=== PATIENT | male | born 1970 | race Caucasian/White ===

== ENCOUNTER 2019-04-08 20:40 | Inpatient (IN) | payer MEDICAID, SELFPAY ==
--- NOTE | ~2019-04-08 | US_ITS ---
EXAMINATION:US venous doppler LE BI INDICATION:Leg edema TECHNIQUE: Multiple grayscale, color flow and Doppler images of the lower extremity deep venous syste ms were obtained and reviewed. COMPARISON:No prior studies for comparison. FINDINGS: The common femoral, superficial femoral and popliteal veins demonstrate normal respiratory variation, augmentation and compressibility. Color flow is also seen within the posterior tibial, pe roneal, greater saphenous and profunda veins. IMPRESSION: 1: No lower extremity deep venous thrombosis. Reviewed, dictated and finalized at location A. PLAYER
--- NOTE | ~2019-04-08 | CT_ITS ---
EXAMINATION: CTA chest PE protocol DATE: 04/08/2019 22:38 COLOR FINISHER INDICATION: Shortness of breath TECHNIQUE: Computed tomographic angiography (CTA) of the chest was performed with 100 mL Omnipaque-35 0 intravenous contrast. The dose-length product was 705.93 mGy-cm. Maximum intensity projection 3D-re constructions of the aorta and other arteries were constructed by the technologist on a separate work station. COMPARISON: None. FINDINGS: The study is technically adequate without evidence for pulmonary embolism. There is mediast inal lymphadenopathy. For instance AP window lymph node measures 1.9 cm short axis. There is also elmer ateral hilar lymphadenopathy. Subcarinal lymph node measures 2.9 cm. Cardiomegaly. No significant per icardial effusion. There is small left pleural effusion. Small hiatal hernia. There are multiple bord araceli sized axillary lymph nodes. There are partially visualized enlarged upper abdominal lymph node s in the portacaval region. There is also enlarged left supraclavicular lymph nodes. There are scatte red groundglass densities many of which have a nodular configuration. There are areas of tree-in-bud configuration and the left upper lobe. IMPRESSION: 1. No evidence for pulmonary embolism. 2: Extensive scattered groundglass opacities with areas of nodularity and tree-in-bud configuration, particularly in the left upper lobe. Differential diagnosis includes infection as well as lymphoma an d sarcoidosis in view of mediastinal and hilar lymphadenopathy. 3: Cardiomegaly. 4: Small left pleural effusion. Reviewed, dictated and finalized at location A. R FINISHER IMPRESSION: 1. No evidence for pulmonary embolism. 2: Extensive scattered groundglass opacities with areas of nodularity and tree- in-bud configuration, particularly in the left upper lobe. Differential diagnos is includes infection as well as lymphoma and sarcoidosis in view of mediastina l and hilar lymphadenopathy. 3: Cardiomegaly. 4: Small left pleural effusion.
--- NOTE | ~2019-04-08 | CT_ITS ---
EXAMINATION: CT abdomen pelvis wo con DATE: 04/09/2019 15:43 INDICATION: Mediastinal lymphadenopathy TECHNIQUE: Computed tomography (CT) of the abdomen and pelvis was performed without intravenous contr ast. The dose-length product was 868.72 mGy-cm. Automated exposure control and iterative reconstructi on technique were employed. COMPARISON: CT dated 10/13/2013 FINDINGS: There are scattered groundglass nodular densities in both lungs. Cardiomegaly. Small pleura l effusions. The liver, spleen, pancreas, adrenal glands and kidneys are unremarkable. Gallbladder is present. The re are enlarged retroperitoneal lymph nodes seen in the upper abdomen in the periaortic and portacava l region. Nonobstructive bowel gas pattern. No abnormal pelvic masses or fluid collections. There is mild bilat eral inguinal lymphadenopathy. Enlarged left obturator lymph node. No free air or free fluid. There i s moderate-severe lumbar spondylosis most advanced at L5-S1. IMPRESSION: 1. Abdominal and pelvic lymphadenopathy. Considering thoracic lymphadenopathy, lymphoma should be con sidered. 2: Scattered groundglass nodular densities in both lungs. Differential diagnosis includes infection versus lymphoma and sarcoidosis. Reviewed, dictated and finalized at location A. OR QUALITATIVE RESEARCHER IMPRESSION: 1. Abdominal and pelvic lymphadenopathy. Considering thoracic lymphadenopathy, lymphoma should be considered. 2: Scattered groundglass nodular densities in both lungs. Differential diagnos is includes infection versus lymphoma and sarcoidosis.
--- NOTE | ~2019-04-08 | XR_ITS ---
XR chest 2V 04/08/2019 21:28 Indication: Shortness of breath. Procedure: PA and lateral views of the chest Comparison: 08/10/2009 Findings: Cardiomegaly with interstitial edema. No pleural effusion. No pneumothorax. No acute osseou s abnormality. Impression: 1: Cardiomegaly with interstitial edema, possibly chronic. Reviewed, dictated and finalized at location A. OMY PROFESSOR Impression: 1: Cardiomegaly with interstitial edema, possibly chronic.
--- NOTE | 2019-04-08 20:41 | ECG_ITS ---
Measurements Intervals [place] Rate: 103 P: 58 DC: 158 QRS: 42 QRSD: 100 T: 153 QT: 312 QTc: 409 Interpretive Statements SINUS TACHYCARDIA LEFT ATRIAL ENLARGEMENT CANNOT RULE OUT SEPTAL INFARCT, AGE INDETERMINATE ST-T WAVE ABNORMALITY IN LATERAL LEADS- CONSIDER ISCHEMIA BASELINE ARTIFACT- I, III, AVR, AVL ABNORMAL ECG Electronically Signed On 04-08-2019 21:17:16 DEPUTY SHERIFF CHIEF by Jong Macias D.O.
[2019-04-08 20:45] VITALS: BP 131/92; PULSE 106; RESP 22; TEMP 38.3; O2SAT 98
[2019-04-08 21:00] VITALS: PULSE 100
[2019-04-08 21:08] LABS: Basophils Percent Auto 0.2 % (0.2-1.2); Eosinophils Percent Auto 0.2 % (0-4.4); Immature Granulocyte Absolute 0.09 K/mm3 (0.00-0.031); Immature Granulocyte Percent A 0.7 % (0-0.5); Lymphocytes Absolute Auto 0.92 K/mm3 (0.9-3.2); Lymphocytes Percent Auto 7.3 % (18.3-44.2); Mean Corpuscular HGB Conc 31.9 g/dl (32-36); Mean Corpuscular Hemoglobin 29.5 pg (26-34); Mean Corpuscular Volume 92.5 fl (80-100); Mean Platelet Volume 8.9 fl (7.4-10.4); Monocytes Absolute Auto 0.9 K/mm3 (0.1-0.6); Monocytes Percent Auto 7.2 % (2.6-8.5); Neutrophils Absolute Auto 10.6 K/mm3 (1.3-6.7); Neutrophils Percent Auto 84.4 % (45.5-73.1); Platelet Count Result 317 k/mm3 (150-375); Red Blood Count 5.08 M/mm3 (4.6-6.20); Red Cell Distribution Width 13.6 % (11.5-14.5); White Blood Count 12.6 K/mm3 (4.5-10.0)
[2019-04-08 21:20] LABS: Blood Urea Nitrogen 12 mg/dL (9-20); Calcium 8.4 mg/dL (8.4-10.2); Carbon Dioxide 32 mmol/L (22-30); Chloride 96 mmol/L (98-107); Estimated CRCL calculation 57 ml/min; Estimated Glomerular Filt Rate 41; Glucose 113 mg/dL (75-110); Sodium 135 mmol/L (137-145)
[2019-04-08 21:24] LABS: INR 0.9; Prothrombin Time 11.6 Seconds (11.1-14.7)
[2019-04-08 21:25] LABS: Partial Thromboplastin Time 30.9 SECONDS (22.3-36.8)
[2019-04-08 21:29] LABS: NT Pro B Type Natriuretic Pept 1650 PG/ML (5-100)
--- NOTE | 2019-04-08 21:31 | ED.SOB ---
HPI - SOB/Dyspnea General Chief Complaint: Chest Pain Stated Complaint: SUNITA BEEN HAVING MULTIPLE HEART ATTACKS Time Seen by Provider: 04/08/19 21:27 Source: patient and RN notes reviewed Mode of arrival: ambulatory Limitations: no limitations History of Present Illness HPI Narrative: Pt is a 48 y/o male who presents to the ED with c/o shortness of breath starting roughly 6 weeks ago and worsening over the past few weeks. He notes that his symptoms began while pushing a wheelbarrow around 6 weeks ago. Pt states that he has been unable to take a deep breath. He states that his symptoms are aggravated with exertion, noting that he has difficulty catching his breath after walking relatively short distances. Pt reports intermittent chest pain accompanying his SOB, but denies any CP currently. He notes that he developed flu-like symptoms, including a fever, 2 days ago. Pt denies having any significant cardiopulmonary PMHx. MD elicited complaint: shortness of breath Onset (ago): week(s) (6) Timing: progressively worsening Exacerbating factors: exertion Associated symptoms: chest pain (resolved) and fever Related Data Home Medications Medication Instructions Recorded Confirmed No Home Medications 04/08/19 04/08/19 Allergies Allergy/AdvReac Type Severity Reaction Status Date / Time No Known Allergies Allergy Verified 04/08/19 20:49 Review of Systems Review of Systems: All systems reviewed & are unremarkable except as noted in HPI and below Constitutional: Constitutional: Reports fever(s) Cardiovascular: Cardiovascular: Reports chest pain (resolved) Respiratory: Respiratory: Reports dyspnea PMFSH Past Medical History Medical History Anxiety Braun's esophagus HTN (hypertension) Positional vertigo Surgical History Surgical History No significant past surgical history Social History Social History Smoking status: Never smoker Exam Const: General: cooperative, healthy appearing, comfortable, no acute distress, well developed, alert and awake; No confusion Orientation/consciousness: oriented to person, oriented to place, oriented to time, patient oriented x3 and No confusion Limitations: no limitations HENMT: Head: normal to inspection, normocephalic and atraumatic Chest: Chest palpation & inspection: normal inspection of the chest Resp: Effort & Inspection: no respiratory distress and not tachypneic Auscultation: clear to auscultation bilaterally, no crackles, no rales, no rhonchi, no wheezes and diminished lung sounds bilateral Cardio: Rate: tachycardic Rhythm: regular rhythm GI: Inspection: normal to inspection GI Palp: No abdominal tenderness, Yes Soft to palpation, No Tenderness to palpation present (GI), No Guarding due to palpation present (GI), No Rigid due to palpation and No Rebound tenderness present Auscultation: normal bowel sounds Back/Spine/Pelvis: Back: no CVA tenderness Skin: General skin exam: normal color, no rashes or lesions noted, elasticity normal and turgor normal Neuro: General: oriented to person, oriented to place, oriented to time, patient oriented x3, tone normal, moves all extremities, Normal light touch and pain sensation, no meningeal signs, no focal motor deficits, CN's II-XI intact bilaterally and No confusion Cranial nerves: Yes Equal, round and reactive pupils present Speech: No Abnormal speech present Sensory Exam: No Sensory deficit (Neuro) Extrem: General: normal to inspection, full ROM and capillary refill normal Psych: Appearance: grossly normal and well kempt Mental Status: mental status grossly normal Speech and movement: Normal speech and movement present Affect: normal affect Attitude: cooperative Thought process: Normal thought process present Thought content: Yes Normal thought content present Insight: Whit
[2019-04-08] MEDS: ASPIRIN 81 MG CHEWABLE TABLET 324 MG PO ×2 (21:38→22:39)
[2019-04-08 21:44] LABS: D Dimer 1.38 ug/mL (<0.48)
[2019-04-08 21:55] VITALS: PULSE 97; RESP 19
[2019-04-08] MEDS: ALBUTEROL SULFATE NEB 2.5 MG/0.5 ML INH 5 MG INHALATION (21:57)
[2019-04-08] MEDS: IPRATROPIUM BR 0.02% INH SOLN 0.5 MG/2.5 ML VIAL INHALATION (21:57)
[2019-04-08 22:05] VITALS: PULSE 94; RESP 15
[2019-04-08 22:21] LABS: Lactic Acid Reflex 0.7 mmol/L (0.7-2.1)
--- NOTE | 2019-04-08 22:29 | PC.NURSE ---
pt to ct unable to give meds
[2019-04-08] MEDS: ACETAMINOPHEN 500 MG TABLET 1000 MG PO (22:39)
[2019-04-08] MEDS: ENOXAPARIN 100 MG/ML SYRINGE SUB-Q (22:39)
[2019-04-08] MEDS: SODIUM CHLORIDE 0.9% IV 1,000 ML 999 ML IV CONT (22:39)
[2019-04-08 23:00] VITALS: BP 192/120; PULSE 98; RESP 22; TEMP 36.9; O2SAT 97
[2019-04-09] VITALS (21 sets, daily range): BP systolic 144–179; BP diastolic 100–122; PULSE 66–96; RESP 14–22; TEMP 36.2–36.8; O2SAT 97–100
[2019-04-09] MEDS: FUROSEMIDE INJ 40 MG/4 ML VIAL IV PUSH (00:16)
[2019-04-09 00:20] LABS: Lactic Acid Reflex 0.8 mmol/L (0.7-2.1)
[2019-04-09 00:41] LABS: Troponin I 0.121 ng/mL (0.000-0.034)
--- NOTE | 2019-04-09 01:12 | ECG_ITS ---
Measurements Intervals [place] Rate: 68 P: 57 NJ: 164 QRS: 50 QRSD: 115 T: 165 QT: 417 QTc: 445 Interpretive Statements SINUS RHYTHM INTRAVENTRICULAR CONDUCTION DELAY LEFT VENTRICULAR HYPERTROPHY AND ST-T CHANGE ANTERIOR ST ELEVATION- CONSIDER ACUTE INJURY ABNORMAL ECG Electronically Signed On 04-09-2019 8:52:20 AUTO DAMAGE ESTIMATOR by Jong Macias D.O.
--- NOTE | 2019-04-09 01:12 | PM.IMHP ---
H&P: HPI History of Present Illness Chief complaint: Increase exertional shortness of breath Narrative: This is a 48-year-old male with known history of untreated hypertension who presented to the [facility] with a complaint of worsening exertional shortness of breath as well as nonproductive hacking cough. The patient mentions that approximately 6 weeks ago he experienced an episode of severe midsternal like chest pain. His chest pain at that time was burning in quality and severe. He believes he may have had a heart attack at that time. The patient did not seek medical attention at that time. He mentions that since then he has had on going exertional shortness of breath. The patient is known to work out at the gym regularly and tells me that he had to stop going to the gym because of increased fatigue. Recently the patient went back to working out and has noticed that he has much less stamina and less endurance that he used to have. The patient has no previous history of coronary artery disease. He tells me that typically he will begin to have worsening shortness of breath as the day goes on but today he woke up with significant shortness of breath immediately which worried him. The patient has also noticed increased swelling of his lower extremities recently which is not typical for him. He mentions that over the past 6 weeks he has had intermittent mild chest discomfort that comes and goes but not anywhere severe as it was 6 weeks ago. The patient also complains of upper respiratory infection symptoms including congestion and a dry hacking cough. The patient was evaluated emergency room this evening and found to have an elevated troponin of 0.121. Positive for influenza A. On further questioning the patient denies any family history of early cardiac . He does admit to me that he has use anabolic steroids in the past and his last time he used was last year. The patient denies any other type of drug use. Review of Systems Review of Systems: All systems reviewed & are unremarkable except as noted in HPI and below PMFSH Past Medical History Medical History Anxiety Braun's esophagus HTN (hypertension) Positional vertigo Surgical History Surgical History No significant past surgical history Social History Social History Smoking packs per day: 1 Smoking cigarettes per day: 20.0 Years smoked: 15 Smoking pack-years: 15.00 Smoking status: Former smoker Tobacco type: cigarettes Second hand tobacco smoke exposure: Yes Alcohol intake: never Substance use: never Gender identity (if verbalized by the patient): Male Spiritual care concerns: No Agree to blood products: Yes Meds Home Medications and Allergies Home Medications Medication Instructions Recorded Confirmed Type No Home Medications 04/08/19 04/08/19 History Allergies Allergy/AdvReac Type Severity Reaction Status Date / Time No Known Allergies Allergy Verified 04/08/19 20:49 Vital Signs Vital Signs - 24 hr 04/08/19 20:45 04/08/19 21:00 04/08/19 21:55 Temperature 38.3 C H Pulse Rate 106 H 100 97 Respiratory Rate 22 H 19 Blood Pressure 131/92 H Pulse Oximetry 98 04/08/19 22:05 04/08/19 23:00 04/09/19 00:50 Temperature 36.9 C Pulse Rate 94 98 96 Respiratory Rate 15 22 H 14 Blood Pressure 192/120 H 176/122 H Pulse Oximetry 97 97 Exam Const: General: cooperative, alert, awake and ill appearing Nutritional Appearance: obese Orientation/consciousness: patient oriented x3 HENMT: Head: normal to inspection General nose exam: Normal external nose present Face and sinus: normal facial exam Mouth: Yes Normal oral and palatal mucosa present and Yes oropharynx normal Eyes: Pupils: Equal, round and reactive pupils present EOM: EO
--- NOTE | 2019-04-09 01:22 | ECHO_ITS ---
Patient Info Name: Patric Rodriges Age: 48 years : 1970 Gender: Male Ht: 72 in Wt: 230 lbs BSA: 2.33 m2 HR: 75 bpm BP: 171 / 108 mmHg Heart Rhythm: Sinus Rhythm Technical Quality: Excellent Exam Date: 04/09/2019 10:31 AM Exam Location: [facility] Card Pulmonary Patient Status: Inpatient Admit Date: 04/09/2019 Staff Ordering Physician: Sergio Carlos MD Timber Inspector: Krishna Ren RDCS Attending Provider: Sergio Carlos MD Referring Physician: Terrance ROSAS; Exam Type: CA echo doppler color flow Study Info Indications I50.9 - Heart failure, unspecified Complete two-dimensional, color flow and Doppler transthoracic echocardiogram is performed. Strain analysis performed. History/Risk Factors CHF; NSTEMI, HTN, SOB, edema, Flu A, elevated trops. Summary 1. Left ventricular systolic function is severely reduced, estimated at 25-30%. 2. There is mildly increased left ventricular wall thickness. 3. There is mild mitral valve regurgitation. 4. There is mild tricuspid valve regurgitation. 5. Severe pulmonary hypertension, estimated pulmonary arterial systolic pressure is 66 mmHg. Left Ventricle Left ventricular chamber dimension is mildly enlarged. Left ventricular systolic function is severely reduced, estimated at 25-30%. There is mildly increased left ventricular wall thickness. Left ventricular septal wall motion is abnormal with septal motion related to bundle branch block. The left ventricular diastolic function is grade IV diastolic dysfunction. Right Ventricle Right ventricular chamber dimension is normal. Right ventricular systolic function is normal. Left Atria Left atrial chamber dimension is mildly enlarged. Right Atria Right atrial chamber dimension is normal. Aortic Valve The aortic valve is trileaflet. There is no aortic valve sclerosis. There is no aortic valve stenosis. There is no aortic valve regurgitation. Pulmonic Valve The pulmonic valve is normal. There is no pulmonic valve stenosis. There is no pulmonic regurgitation. Mitral Valve The mitral valve has normal leaflets. There is no mitral valve stenosis. There is mild mitral valve regurgitation. Tricuspid Valve The tricuspid valve leaflets are normal. There is no significant tricuspid valve stenosis. There is mild tricuspid valve regurgitation. Severe pulmonary hypertension, estimated pulmonary arterial systolic pressure is 66 mmHg. Pericardium/Pleural The pericardium appears normal. There is no pericardial effusion. Aorta The aortic root size at the sinus of Valsalva is normal. The prox ascending aorta size is normal. Left Ventricular Outflow Tract Name Value Normal LVOT 2D LVOT Diameter 2.2 cm LVOT Doppler LVOT Peak Gradient 9 mmHg LVOT Mean Gradient 3 mmHg LVOT VTI 22 cm LVOT VTI/AV VTI Ratio 0.8 LVOT Stroke Volume 81 ml LVOT CO 5.9 l/min LVOT CI 2.5
--- NOTE | 2019-04-09 01:44 | ADMGEN ---
This patient, Patric Rodriges, was admitted to IMU Room 206-02. Patient/family oriented to hospital policies and general routines including ID bracelet, bed and alarms, visiting hours, pain management, procedures, bathroom and other care routines, personal items, smoking policy, room service/diet, and visiting hours. Valuables list has been completed. Information on how to activate the Rapid Response Team has been discussed. Patient/Family are encouraged to report perceived risks to care and to ask questions if they do not understand what they are told or what they should do.
[2019-04-09] MEDS: ALBUTEROL SULFATE NEB 2.5 MG/0.5 ML INH INHALATION ×3 (02:44→22:05)
[2019-04-09 03:05] LABS: Basophils Percent Auto 0.2 % (0.2-1.2); Eosinophils Percent Auto 0.1 % (0-4.4); Hematocrit 47.6 % (42.0-52.0); Hemoglobin 15.2 g/dL (14.0-18.0); Immature Granulocyte Absolute 0.07 K/mm3 (0.00-0.031); Immature Granulocyte Percent A 0.5 % (0-0.5); Lymphocytes Absolute Auto 1.44 K/mm3 (0.9-3.2); Lymphocytes Percent Auto 10.8 % (18.3-44.2); Mean Corpuscular HGB Conc 31.9 g/dl (32-36); Mean Corpuscular Hemoglobin 29.5 pg (26-34); Mean Corpuscular Volume 92.2 fl (80-100); Mean Platelet Volume 8.9 fl (7.4-10.4); Monocytes Absolute Auto 0.9 K/mm3 (0.1-0.6); Monocytes Percent Auto 6.5 % (2.6-8.5); Neutrophils Absolute Auto 10.9 K/mm3 (1.3-6.7); Neutrophils Percent Auto 81.9 % (45.5-73.1); Platelet Count Result 336 k/mm3 (150-375); Red Blood Count 5.16 M/mm3 (4.6-6.20); Red Cell Distribution Width 13.7 % (11.5-14.5); White Blood Count 13.3 K/mm3 (4.5-10.0)
[2019-04-09 03:15] LABS: Blood Urea Nitrogen 13 mg/dL (9-20); Calcium 8.2 mg/dL (8.4-10.2); Carbon Dioxide 35 mmol/L (22-30); Chloride 95 mmol/L (98-107); Estimated CRCL calculation 51 ml/min; Estimated Glomerular Filt Rate 41; Glucose 105 mg/dL (75-110); Potassium 3.9 mmol/L (3.4-5.0); Sodium 136 mmol/L (137-145)
[2019-04-09 03:35] LABS: Troponin I 0.122 ng/mL (0.000-0.034)
[2019-04-09] MEDS: ENOXAPARIN 60 MG/0.6 ML SYRINGE 50 MG SUB-Q (09:30)
[2019-04-09] MEDS: ASPIRIN 81 MG ENTERIC TABLET PO (09:31)
--- NOTE | 2019-04-09 10:18 | PM.CNCAR ---
Assessment and Plan Assessment and plan (1) Non-ST elevation (NSTEMI) myocardial infarction: Code(s): I21.4 - Non-ST elevation (NSTEMI) myocardial infarction Status: Acute Assessment and Plan: Patient is a 48-year-old white man with history of poorly-controlled hypertension, former tobacco use (quit 12 years ago, 15 pack year), benign positional vertigo, Braun's esophagus, anxiety, who is seen in cardiac consultation for elevated troponin I and chest pain. - patient presents with possible non ST elevation myocardial infarction in the setting of influenza A likely over the last 6 weeks and with acute renal failure in the setting of poorly controlled hypertension. - His troponin I trend has been completely flat this admission and may be elevated in the setting of his acute renal failure and respiratory infection with influenza A. Troponin I was initially elevated 0.110, then 0.121, then 0.121, then 0.115 over span of 12 hours. Will repeat additional troponin I and if troponin I again without significant change, suspect that this is not an acute non ST-elevation myocardial infarction. - obtain echo to evaluate cardiac structure and function. - Consider left heart catheterization versus nuclear stress testing to evaluate for ischemia pending his continue troponin trend. -Had CTA of the chest which demonstrated no evidence of pulmonary embolism, extensive scattered ground-glass opacities with areas of nodularity and tree-in-bud configuration, particularly in the left upper lobe, differential diagnosis includes infection as well as lymphoma and sarcoidosis in view of mediastinal and hilar lymphadenopathy, cardiomegaly, small left pleural effusion. - Continue aspirin and Lovenox. - Improve blood pressure control. (2) Influenza A: Code(s): J10.1 - Influenza due to other identified influenza virus with other respiratory manifestations Status: Acute Assessment and Plan: Management as per primary service. (3) Uncontrolled hypertension: Code(s): I10 - Essential (primary) hypertension Status: Chronic Assessment and Plan: Patient presented with moderate to severely elevated blood pressure which remains moderately elevated. Continue with hydralazine IV p.r.n. and begin carvedilol 3.125 mg b.i.d.. (4) Acute renal failure: Code(s): N17.9 - Acute kidney failure, unspecified Status: Acute Assessment and Plan: -Continue to monitor renal function with creatinine elevated 1.8 this admission, in the setting influenza A and poorly controlled hypertension. -management as per primary service. (5) Acute CHF (congestive heart failure): Qualifiers: Heart failure type: unspecified Qualified Code(s): I50.9 - Heart failure, unspecified Code(s): I50.9 - Heart failure, unspecified Status: Acute Assessment and Plan: -Patient appears euvolemic at present without significant peripheral edema. -he received a dose of Lasix IV in the emergency department. Holding further Lasix at present given his acute renal failure. -TSH normal this admission. -Begin carvedilol 3.125 mg b.i.d. for heart failure and with need to improve blood pressure control. -Obtain echo to evaluate cardiac structure and function. History of Present Illness History of Present Illness Consult date/time: 04/09/19 10:18 Patient is a 48-year-old white man with history of poorly-controlled hypertension, former tobacco use (quit 12 years ago, 15 pack year), benign positional vertigo, Braun's esophagus, anxiety, who is seen in cardiac consultation for elevated troponin I and chest pain. Patient presented for evaluation of intermittent chest pain and associated shortness of breath over the last 6 weeks. Patient reports 6 weeks ago he had an episode of severe midsternal chest pain with associated severe shortness of breath which lasted approximately 5 minutes while he was carrying his bags into the gym.
[2019-04-09 10:28] LABS: Troponin I 0.115 ng/mL (0.000-0.034)
[2019-04-09] MEDS: carvediloL 3.125 MG TABLET PO ×2 (12:02→20:31)
[2019-04-09] MEDS: hydrALAZINE HCL 20 MG/ML VIAL 10 MG IV PUSH ×2 (12:03→20:31)
[2019-04-09 13:15] LABS: Amphetamine Screen Urine Negative (Negative); Barbiturate Screen Urine Negative (Negative); Benzodiazepines Screen Urine Negative (Negative); Cannabinoid Screen Urine Negative (Negative); Cocaine Screen Urine Negative (Negative); Methadone Screen Urine Negative (Negative); Opiate Screen Urine Negative (Negative); Phencyclidine Screen Urine Negative (Negative)
[2019-04-09 13:26] LABS: Troponin I 0.109 ng/mL (0.000-0.034)
--- NOTE | 2019-04-09 14:42 | PM.IMPN ---
Progress Note: A&P Assessment and Plan (1) Non-ST elevation (NSTEMI) myocardial infarction: Code(s): I21.4 - Non-ST elevation (NSTEMI) myocardial infarction Status: Acute Assessment and Plan: Patient possibly had acute NSTEMI several weeks ago and may now be having symptoms from the low EF and severe HTN. Troponins elevated to 0.12 but flat. EKG more consistent with LVH and straini pattern. [facility] planned. Plan for medical management. Appreciate Cardiology input. Check Lipids. (2) Acute CHF (congestive heart failure): Qualifiers: Heart failure type: unspecified Qualified Code(s): I50.9 - Heart failure, unspecified Code(s): I50.9 - Heart failure, unspecified Status: Acute Assessment and Plan: Echo showing EF 25% with severe pulmonary HTN and Grade IV diastolic dysfunction. BNP 1650. Viral? Related to uncontrolled HTN? Ischemic with the episode of CP 6 weeks ago? Lasix IV started. Monitor closely. [facility] planned at some point. (3) Influenza A: Code(s): J10.1 - Influenza due to other identified influenza virus with other respiratory manifestations Status: Acute Assessment and Plan: Tested positive for influenza A. Low grade fever last night. He has had respiratory symptoms for several weeks but could be related to the low EF. Continue supportive care. Tamiflu stopped. Antipyretics as needed. (4) Uncontrolled hypertension: Code(s): I10 - Essential (primary) hypertension Status: Chronic Assessment and Plan: Patient noncompliant with his antihypertensive medications. Coreg started and Hydralazine available as needed. Would not lower BP too fast so as to continue to perfuse kidneys. Suspect renal function will worsen with Lasix unless it 'unloads' the heart. (5) Acute renal failure: Code(s): N17.9 - Acute kidney failure, unspecified Status: Acute Assessment and Plan: Could be related to poor renal perfusion from his pulmonary HTN and low EF. Also patient is muscular and he takes creatine. Consider also CKD related to his uncontrolled HTN. Discussed with Cardiology about IV fluids since he may be having LHC in the morning. Will hold on IVF and try to diurese him. Nephrology consult. (6) Mediastinal adenopathy: Code(s): R59.0 - Localized enlarged lymph nodes Status: Acute Assessment and Plan: CT chest showing mediastinal adenoparthy. Consider related to Influenza but concern for lymphoma or sarcoid. Check SRI level and CT Abd/pelvis. may need LN biopsy for definitive diagnosis. CT showing abdominal and pelvic lymphadenopathy. Will need biopsy. Subjective Date/time seen: 04/09/19 14:42 Interval history: 48yo male here for SOB. Chart reviewed. Hx reviewed with catracho. He had CP about 6 weeks ago but did not seek medical attention. He stopped to the gym for the next 2 weeks but has started to go back to the about a month ago he has been lifting weights and denies any chest pain with this activity. He has been having more dyspnea on exertion. Has pedal edema thinks this is more chronic. Shortness of breath is better today. He denies any chest pain today. He does have a cough productive of yellowish sputum. He does take creatine supplement. He did not have a flu shot this year. He denies any myalgias. He has night sweats but chronic. no unexplained fevers of chills. Exam Narrative: Exam Narrative: AF Gen - NARD lying semi recumbent in bed Chest -diffuse expiratory wheezes. CV - RRR S1/S2. No murmurs. Abd - Soft, NT/ND, Positive BS. No hepatosplenomegaly Ext -trace pedal edema Neuro - Alert and oriented. Nonfocal exam. Psych - Nml mood and affect Skin - Warm and dry Lymph -no anterior cervical, posterior cervical, supraclavicular, axillary adenopathy. He did have bilateral inguinal adenopathy. Objective Data Vital Signs Vital Signs: Vital Signs
[2019-04-09] MEDS: FUROSEMIDE INJ 40 MG/4 ML VIAL 20 MG IV PUSH (17:34)
[2019-04-09] MEDS: ENOXAPARIN 100 MG/ML SYRINGE SUB-Q (20:32)
[2019-04-10] VITALS (21 sets, daily range): BP systolic 153–180; BP diastolic 105–132; PULSE 63–90; RESP 16–20; TEMP 36.2–36.9; O2SAT 94–99
[2019-04-10] MEDS: ALBUTEROL SULFATE NEB 2.5 MG/0.5 ML INH INHALATION ×4 (03:00→19:42)
--- NOTE | 2019-04-10 04:17 | PCRCNOTE ---
PT ON APNEALINK
[2019-04-10 08:06] LABS: Hemoglobin 15.5 g/dL (14.0-18.0); Mean Corpuscular HGB Conc 31.6 g/dl (32-36); Mean Corpuscular Hemoglobin 29.6 pg (26-34); Mean Corpuscular Volume 93.7 fl (80-100); Mean Platelet Volume 8.9 fl (7.4-10.4); Platelet Count Result 349 k/mm3 (150-375); Red Blood Count 5.23 M/mm3 (4.6-6.20); Red Cell Distribution Width 13.9 % (11.5-14.5); White Blood Count 7.2 K/mm3 (4.5-10.0)
[2019-04-10 08:25] LABS: Alanine Aminotransferase 49 U/L (4-50); Albumin Level 3.1 g/dL (3.5-5.1); Alkaline Phosphatase 73 U/L (38-126); Aspartate Amino Transferase 53 U/L (17-59); Bilirubin,Total 0.4 mg/dL (0.2-1.3); Blood Urea Nitrogen 18 mg/dL (9-20); Calcium 8.5 mg/dL (8.4-10.2); Carbon Dioxide 39 mmol/L (22-30); Chloride 92 mmol/L (98-107); Cholesterol 135 mg/dL (0-200); Estimated CRCL calculation 48 ml/min; Estimated Glomerular Filt Rate 38; Glucose 89 mg/dL (75-110); HDL Direct 19 mg/dL; Potassium 3.8 mmol/L (3.4-5.0); Sodium 138 mmol/L (137-145); Triglycerides 143 mg/dL (<150)
[2019-04-10 08:37] LABS: LDL Cholesterol Direct 97 mg/dL
[2019-04-10] MEDS: ASPIRIN 81 MG ENTERIC TABLET PO (10:05)
[2019-04-10] MEDS: FUROSEMIDE INJ 40 MG/4 ML VIAL 20 MG IV PUSH ×2 (10:05→18:54)
[2019-04-10] MEDS: ENOXAPARIN 100 MG/ML SYRINGE SUB-Q ×2 (10:05→23:18)
[2019-04-10] MEDS: carvediloL 3.125 MG TABLET PO (10:05)
--- NOTE | 2019-04-10 10:25 | PM.IMPN ---
Progress Note: A&P Assessment and Plan (1) Non-ST elevation (NSTEMI) myocardial infarction: Code(s): I21.4 - Non-ST elevation (NSTEMI) myocardial infarction Status: Acute Assessment and Plan: Patient possibly had acute NSTEMI several weeks ago and may now be having symptoms from the low EF and severe HTN. Troponins elevated to 0.12 but flat. EKG more consistent with LVH and strain pattern. [facility] planned at some point. Plan for medical management. Appreciate Cardiology input. Continue ASA. Change to prophylaxis dose of Loxenox tomorrow. Add Lipitor. (2) Acute CHF (congestive heart failure): Qualifiers: Heart failure type: unspecified Qualified Code(s): I50.9 - Heart failure, unspecified Code(s): I50.9 - Heart failure, unspecified Status: Acute Assessment and Plan: Echo showing EF 25% with severe pulmonary HTN and Grade IV diastolic dysfunction. BNP 1650. Viral? Related to uncontrolled HTN? Ischemic with the episode of CP 6 weeks ago? Lasix IV started. Corega nd lisinopril started. Monitor closely. [facility] planned at some point. (3) Influenza A: Code(s): J10.1 - Influenza due to other identified influenza virus with other respiratory manifestations Status: Acute Assessment and Plan: Tested positive for influenza A. Fevers have resolved. He has had respiratory symptoms for several weeks but could be related to the low EF. Continue supportive care. Tamiflu stopped. Antipyretics as needed. Continue Albuterol. (4) Uncontrolled hypertension: Code(s): I10 - Essential (primary) hypertension Status: Chronic Assessment and Plan: Patient noncompliant with his antihypertensive medications. Coreg and lisinopril started. Hydralazine available as needed. Would not lower BP too fast so as to continue to perfuse kidneys. Monitor renal function closely. (5) Acute renal failure: Code(s): N17.9 - Acute kidney failure, unspecified Status: Acute Assessment and Plan: Could be related to poor renal perfusion from his pulmonary HTN and low EF. Also patient is muscular and he takes creatine. Consider also CKD related to his uncontrolled HTN. Lasix started. Cr slightly higher at 1.9. Appreciate Nephrology input. (6) Mediastinal adenopathy: Code(s): R59.0 - Localized enlarged lymph nodes Status: Acute Assessment and Plan: CT chest showing mediastinal adenoparthy. CT abdominal and pelvic also with lymphadenopathy. Concern for lymphoma or sarcoid. SRI level pending. Discussed with Gen Surgery about resecting an inguinal LN but they recommended discussing with Hem/Onc first to see if this could be a viral picture (seems unlikely). Dr Martínez consulted. (7) Pulmonary hypertension: Code(s): I27.20 - Pulmonary hypertension, unspecified Status: Acute Assessment and Plan: Apnea link showing AHI 52 and RI 54. Will need to see pulmonary for outpatient sleep study. Subjective Date/time seen: 04/10/19 10:25 Interval history: 48yo male here for SOB found to have CHF. SOB slightly better today. No CP. Eating normally. No n/v. Up walking in the room. Minimal SELLERS. Exam Narrative: Exam Narrative: Gen - NARD Chest -scattered rhonchi. no wheezing. nml RR CV - RRR S1/S2. No murmurs. Tele showing no signifiant dysrhythmias Abd - Soft, NT/ND, Positive BS. Ext -trace pedal edema Psych - Nml mood and affect Skin - Warm and dry Objective Data Vital Signs Vital Signs: Vital Signs - 24 hr 04/09/19 12:00 04/09/19 12:02 04/09/19 14:00 Temperature 97.1 F L Pulse Rate 68 71 79 Respiratory Rate 20 Blood Pressure 164/102 H Pulse Oximetry 98 04/09/19 16:00 04/09/19 18:00 04/09/19 20:00 Temperature 97.8 F 98.2 F Pulse Rate 80 74 74 Respiratory Rate 20 20 Blood Pressure 165/112 H 179/114 H Pulse Oximetry 98 100 04/09/19 20:31
--- NOTE | 2019-04-10 12:04 | PM.CNNEP ---
Assessment and Plan Assessment and plan (1) Acute renal failure: Code(s): N17.9 - Acute kidney failure, unspecified Status: Acute (2) Acute CHF (congestive heart failure): Qualifiers: Heart failure type: unspecified Qualified Code(s): I50.9 - Heart failure, unspecified Code(s): I50.9 - Heart failure, unspecified Status: Acute (3) Uncontrolled hypertension: Code(s): I10 - Essential (primary) hypertension Status: Chronic (4) Pulmonary hypertension: Code(s): I27.20 - Pulmonary hypertension, unspecified Status: Acute (5) Influenza A: Code(s): J10.1 - Influenza due to other identified influenza virus with other respiratory manifestations Status: Acute Assessment and Plan: . Additional Plan Patric has an elevated creatinine which presumably represents acute kidney injury/acute renal failure. There are a few possibilities to explain his elevated creatinine. He does have uncontrolled hypertension as evidenced by his hemodynamics on admission and so this could just be manifestation of chronic kidney disease secondary to this. The fact that he has a significant cardiomyopathy argues that he may also have some degree of cardiorenal syndrome/renal hypoperfusion (depressed ejection fraction leading to chronic prerenal azotemia worsened by the need for diuretic therapy ). The significant finding of pulmonary hypertension could also be playing a role with his renal dysfunction as well. As Dr. Burkett already mentioned, given his body habitus/musculature in association of creatinine intake to promote muscle buildup, this may have artificially increased his serum creatinine as well. Although he has already had a CT scan of the abdomen which demonstrates normal kidneys, I will still check a renal ultrasound just to ensure there is no other anatomical abnormalities present to explain his elevated creatinine. I could check urine electrolytes but since he is on diuretics it may be difficult to interpret in general. Under ideal circumstances I would probably check a 24 hr urine collection for better estimation of his creatinine clearance but given his acute illness, it may not be entirely accurate also. For completeness sake, I will check some baseline serological studies to rule out any type of intrinsic, infiltrative, or inflammatory disorder and follow the trend of his repeat labs and urine output with IV diuretic therapy in the hope that this improved his overall volume status. I will continue to follow patient with you while he remains hospitalized and make further recommendations during his hospital course Thank you for allowing me participate in the care of this patient. History of Present Illness Reason for Consult Consult date: 04/11/19 Reason for consult: acute renal failure Chief Complaint Chief complaint: Increase exertional shortness of breath History of Present Illness Narrative: The patient is 48-year-old male with a history as outlined below who presented to [facility] ER with a complaints of worsening shortness of breath, particularly with exertion as well as nonproductive cough. From review of the electronic records and discussion with the patient, approximately 6 weeks ago he experienced an episode of severe midsternal chest pain described as a burning sensation which was quite severe. There is concern that he may have suffered an acute IL at that time. Since that event, he has noted the ongoing exertional shortness of breath. He usually works out at the gym regularly but has been unable to do so given his shortness of breath and fatigue. He has noted that he will begin to have worsening shortness of breath as the day goes on but on the day of admission, he woke up with significant shortness of breath immediately which worried him. Associated symptoms include increased swelling of his lower extremities. He states he has also noted interm
[2019-04-10] MEDS: ALPRAZOLAM 0.25 MG TABLET PO ×2 (13:30→23:16)
[2019-04-10] MEDS: hydrALAZINE HCL 20 MG/ML VIAL 10 MG IV PUSH (14:25)
--- NOTE | 2019-04-10 15:42 | PM.PNCARD ---
Progress Note: A&P Assessment and Plan (1) Non-ST elevation (NSTEMI) myocardial infarction: Code(s): I21.4 - Non-ST elevation (NSTEMI) myocardial infarction Status: Acute Assessment and Plan: Patient is a 48-year-old white man with history of poorly-controlled hypertension, former tobacco use (quit 12 years ago, 15 pack year), benign positional vertigo, Braun's esophagus, anxiety, who is seen in cardiac consultation for elevated troponin I and chest pain. - patient presents with possible non ST elevation myocardial infarction in the setting of influenza A likely over the last 6 weeks and with acute renal failure in the setting of poorly controlled hypertension. - His troponin I trend has been completely flat this admission and may be elevated in the setting of his acute renal failure and respiratory infection with influenza A. Troponin I was initially elevated 0.110, then 0.121, then 0.121, then 0.115 over span of 12 hours. Will repeat additional troponin I and if troponin I again without significant change, suspect that this is not an acute non ST-elevation myocardial infarction. - obtain echo to evaluate cardiac structure and function. - Consider left heart catheterization versus nuclear stress testing to evaluate for ischemia pending his continue troponin trend. -Had CTA of the chest which demonstrated no evidence of pulmonary embolism, extensive scattered ground-glass opacities with areas of nodularity and tree-in-bud configuration, particularly in the left upper lobe, differential diagnosis includes infection as well as lymphoma and sarcoidosis in view of mediastinal and hilar lymphadenopathy, cardiomegaly, small left pleural effusion. - Continue aspirin and Lovenox. - Improve blood pressure control. (2) Influenza A: Code(s): J10.1 - Influenza due to other identified influenza virus with other respiratory manifestations Status: Acute Assessment and Plan: Management as per primary service. (3) Uncontrolled hypertension: Code(s): I10 - Essential (primary) hypertension Status: Chronic Assessment and Plan: Patient presented with moderate to severely elevated blood pressure which remains moderately elevated. Continue with hydralazine and Coreg, will add lisinopril for better blood pressure control and for left ventricular systolic dysfunction, will follow-up renal function as we started lisinopril (4) Acute renal failure: Code(s): N17.9 - Acute kidney failure, unspecified Status: Acute Assessment and Plan: -Continue to monitor renal function with creatinine elevated 1.8 this admission, in the setting influenza A and poorly controlled hypertension. -management as per primary service. (5) Acute CHF (congestive heart failure): Qualifiers: Heart failure type: unspecified Qualified Code(s): I50.9 - Heart failure, unspecified Code(s): I50.9 - Heart failure, unspecified Status: Acute Assessment and Plan: -Patient appears euvolemic at present without significant peripheral edema. -he received a dose of Lasix IV in the emergency department. -Begin carvedilol 3.125 mg b.i.d. for heart failure and with need to improve blood pressure control. Subjective Date/time seen: 04/10/19 15:42 He feels much better today, shortness of breath is better, no dizziness no lightheadedness Exam Narrative: Exam Narrative: Const General: cooperative, alert, awake and well-appearing with occasional dry cough Nutritional Appearance: obese Orientation/consciousness: patient oriented x3 HENMT Head: normal to inspection General nose exam: Normal external nose present Face and sinus: normal facial exam Mouth: Yes Normal oral and palatal mucosa present and Yes oropharynx normal Eyes Pupils: Equal, round and reactive pupils present EOM: EOMs intact bilaterally Neck Neck: supple and no JVD Thyroid: thyroid normal Lymphatic: lymphadenopathy not noted Resp
[2019-04-10 18:31] LABS: Lactate Dehydrogenase 628 U/L (313-618)
[2019-04-10] MEDS: lisinopriL 20 MG TABLET PO (18:54)
[2019-04-10] MEDS: carvediloL 6.25 MG TABLET PO (23:17)
[2019-04-11] VITALS (13 sets, daily range): BP systolic 133–151; BP diastolic 87–100; PULSE 59–74; RESP 12–20; TEMP 36–37.2; O2SAT 93–100
--- NOTE | 2019-04-11 00:51 | CONS_ITS ---
DATE OF CONSULTATION: 04/10/2019 REASON FOR CONSULTATION: Thoracic lymphadenopathy. HISTORY OF PRESENTING ILLNESS: This is a 48-year-old, slightly obese, male, who has been dealing with intermittent sudden onset of shortness of breath and chest heaviness for last 6 weeks duration. He came into the hospital with similar symptoms of exertional shortness of breath and chest heaviness. He also have nonproductive cough. He denies any fevers and chills. He does have some night sweats, but no fevers and chills. He denies any weight loss. He denies any bleeding and bruising. CTA chest was done that showed no evidence of pulmonary embolism, but there was extensive scattered ground-glass opacities in the left lower lobe along with mediastinal and hilar lymphadenopathy. Subcarinal lymph node was 2.9 cm in size and AP window lymph node was 1.9 cm. There was a small left-sided pleural effusion and hiatal hernia. CT abdomen and pelvis was also performed that showed abdominal and pelvic lymphadenopathy, but normal spleen and liver size. REVIEW OF SYSTEMS: 12-point review of systems reviewed and as per HPI, otherwise negative. PAST MEDICAL HISTORY: Braun's esophagus, hypertension, vitiligo, anxiety. PAST SURGICAL HISTORY: None. HOME MEDICATIONS: Reviewed. ALLERGIES: REVIEWED. SOCIAL HISTORY: The patient quit smoking 12 years ago. Denies any alcohol or drug intake. PHYSICAL EXAMINATION: GENERAL: This patient is a well-developed, well-nourished male, in no apparent distress, oriented x3. VITAL SIGNS: Per nursing note. HEENT: Normocephalic, atraumatic. Clear oropharynx. LUNGS: Clear to auscultation bilaterally. CARDIOVASCULAR: Regular rate and rhythm. No murmurs. ABDOMEN: Soft, nontender, nondistended. Bowel sounds are positive in all 4 quadrants. No hepatosplenomegaly. EXTREMITIES: No clubbing, cyanosis, or edema. NEURO: Grossly intact. LABORATORY DATA: WBC 7.3, hemoglobin 15.5, MCV 93.7, platelets 349,000, neutrophils 81%, lymphocytes 10%. D-dimer was 1.38. Creatinine 1.9. Troponin was elevated. ASSESSMENT AND PLAN: Thoracic and abdominal lymphadenopathy. The patient is a 48-year-old male, who has been in good health and has been dealing with shortness of breath and dyspnea on exertion along with some chest heaviness for last 4-6 weeks duration. CTA chest showed no evidence of PE, but D-dimer was elevated. Cardiac enzymes also came back elevated. CT abdomen showed abdominal and pelvic lymphadenopathy without hepatosplenomegaly. CTA chest showed AP window lymph node measures 1.9 cm with bilateral hilar lymphadenopathy and subcarinal lymphadenopathy of 2.9 cm. This findings are worrisome for sarcoidosis versus lymphoproliferative disorder versus reactive lymphadenopathy. Angiotensin-converting enzyme level has been ordered. I will order the LDH. The patient may need lymph node biopsy by endobronchial ultrasound and biopsy, which can be done as an outpatient. The patient will follow up with us after the cardiac evaluation is completed. We will order EBUS and biopsy as an outpatient. I have discussed this with the patient and answered all the questions to the patient's satisfaction. Please provide the patient my office information for followup appointment. JOVANNI FRANCE M.D. TABLE HAND TABLE HAND D Bernarda MT: Angella
[2019-04-11] MEDS: ALBUTEROL SULFATE NEB 2.5 MG/0.5 ML INH INHALATION ×3 (01:54→15:03)
[2019-04-11 06:06] LABS: Creatine Kinase 162 U/L (55-170)
[2019-04-11 06:12] LABS: Blood Urea Nitrogen 23 mg/dL (9-20); Calcium 8.5 mg/dL (8.4-10.2); Carbon Dioxide 33 mmol/L (22-30); Chloride 92 mmol/L (98-107); Estimated CRCL calculation 51 ml/min; Estimated Glomerular Filt Rate 41; Glucose 120 mg/dL (75-110); Phosphorus 4.5 mg/dL (2.5-4.5); Potassium 3.5 mmol/L (3.4-5.0); Sodium 136 mmol/L (137-145)
[2019-04-11] MEDS: lisinopriL 20 MG TABLET PO (10:02)
[2019-04-11] MEDS: carvediloL 6.25 MG TABLET PO (10:02)
[2019-04-11] MEDS: ENOXAPARIN 100 MG/ML SYRINGE SUB-Q (10:03)
[2019-04-11] MEDS: ATORVASTATIN 40 MG TABLET PO (10:03)
[2019-04-11] MEDS: FUROSEMIDE INJ 40 MG/4 ML VIAL 20 MG IV PUSH (10:03)
[2019-04-11] MEDS: ASPIRIN 81 MG ENTERIC TABLET PO (10:03)
[2019-04-11] MEDS: ALPRAZOLAM 0.25 MG TABLET PO (10:09)
--- NOTE | 2019-04-11 12:26 | PM.PNCARD ---
Progress Note: A&P Assessment and Plan (1) Non-ST elevation (NSTEMI) myocardial infarction: Code(s): I21.4 - Non-ST elevation (NSTEMI) myocardial infarction Status: Acute Assessment and Plan: Patient is a 48-year-old white man with history of poorly-controlled hypertension, former tobacco use (quit 12 years ago, 15 pack year), benign positional vertigo, Braun's esophagus, anxiety, who is seen in cardiac consultation for elevated troponin I and chest pain. He seems to be better from cardiac standpoint, okay to discharge home, he will need further workup with cardiac catheterization which could be done as an outpatient, especially when his kidney function gets better. (2) Influenza A: Code(s): J10.1 - Influenza due to other identified influenza virus with other respiratory manifestations Status: Acute Assessment and Plan: Management as per primary service. (3) Uncontrolled hypertension: Code(s): I10 - Essential (primary) hypertension Status: Chronic Assessment and Plan: Patient presented with moderate to severely elevated blood pressure which remains moderately elevated. Continue with hydralazine and Coreg, will add lisinopril for better blood pressure control and for left ventricular systolic dysfunction, will follow-up renal function as we started lisinopril (4) Acute renal failure: Code(s): N17.9 - Acute kidney failure, unspecified Status: Acute Assessment and Plan: -Continue to monitor renal function with creatinine elevated 1.8 this admission, in the setting influenza A and poorly controlled hypertension. -management as per primary service. (5) Acute CHF (congestive heart failure): Qualifiers: Heart failure type: unspecified Qualified Code(s): I50.9 - Heart failure, unspecified Code(s): I50.9 - Heart failure, unspecified Status: Acute Assessment and Plan: Well-compensated now, continue with Lasix p.o., lisinopril and Coreg, okay to be discharged home to follow up with me in 1-2 weeks Subjective Date/time seen: 04/11/19 12:26 Feels much better today, shortness breath is a lot better, no chest pain no dizziness no lightheadedness leg swelling is improved Exam Narrative: Exam Narrative: Const General: cooperative, alert, awake and well-appearing with occasional dry cough Nutritional Appearance: obese Orientation/consciousness: patient oriented x3 HENMT Head: normal to inspection General nose exam: Normal external nose present Face and sinus: normal facial exam Mouth: Yes Normal oral and palatal mucosa present and Yes oropharynx normal Eyes Pupils: Equal, round and reactive pupils present EOM: EOMs intact bilaterally Neck Neck: supple and no JVD Thyroid: thyroid normal Lymphatic: lymphadenopathy not noted Resp Effort & Inspection: normal respiratory effort Auscultation: coarse breath sounds bilaterally with mild diffuse expiratory wheezing Cardio Rate: regular rate Rhythm: regular rhythm Heart sounds: 1/6 intensity systolic murmur, carotid, radial, and posterior tibial pulses 2+ bilaterally, no Carotid bruits. GI Inspection: normal to inspection Auscultation: normal bowel sounds Skin General skin exam: normal color and no rashes or lesions noted Neuro General: patient oriented x3 Cranial nerves: Yes CN's II-XII intact bilaterally and Yes Equal, round and reactive pupils present Speech: normal speech Motor exam (neuro): 5/5 motor strength present throughout Sensory Exam: normal sensation Extrem General: normal to inspection and no edema Psych Mental Status: mental status grossly normal Affect: normal affect Objective Data Vital Signs Vital Signs: Vital Signs - 24 hr 04/10/19 14:00 04/10/19 14:42 04/10/19 14:52 Temperature Pulse Rate 84 80 82 Respiratory Rate 18 18 Blood Pressure Pulse Oximetry 04/10/19 16:00 04/10/19 18:00 04/10/19 19:36 Temperature 36.5 C 36.5 C Pulse R
--- NOTE | 2019-04-11 14:14 | P.PNNP_ITS ---
Progress Note: A&P Assessment and Plan (1) Acute renal failure: Code(s): N17.9 - Acute kidney failure, unspecified Status: Acute Assessment and Plan: * all acute or is there a chronic component??? * creatinine was ~ 1.2mg/dl in 2017 * CT of abdomen with normal kidneys * factors likely contributing to elevated creatinine: - depressed EF/CHF (comonent of cardiorenal syndrome) - uncontrolled hypertension - pulmonary hypertension - muscle mass and intake of creatinine * relatively stable since admission * follow trend of labs (2) Acute CHF (congestive heart failure): Qualifiers: Heart failure type: unspecified Qualified Code(s): I50.9 - Heart failure, unspecified Code(s): I50.9 - Heart failure, unspecified Status: Acute Assessment and Plan: * Cardiology following * Echo results noted (3) Influenza A: Code(s): J10.1 - Influenza due to other identified influenza virus with other respiratory manifestations Status: Acute Assessment and Plan: * tested positive * completed course of Tamiflu * supportive therapy (4) Uncontrolled hypertension: Code(s): I10 - Essential (primary) hypertension Status: Chronic Assessment and Plan: * better control with BB, SRI-I and diuretics * follow trend of hemodynamics Will continue to follow. Subjective Date/time seen: 04/11/19 14:14 Appears to be doing reasonably well -- respiratory status and lower extremity edema seem stable if not better; tolerating diuretics and SRI-I use; no distress voiced at this time. Exam Narrative: Exam Narrative: General: WD/WN male in NAD Heart: normal S1 and S2; no rub Lungs: clear but decreased at bases Abdomen: soft, nontender, nondistended, positive bowel sounds Extremities: no cyanosis or clubbing; trace edema Skin: warm and dry Objective Data Vital Signs Vital Signs: Vital Signs Temp Pulse Resp BP Pulse Ox 04/11/19 12:00 36.2 C L 59 L 12 141/90 H 98 04/11/19 10:02 74 04/11/19 09:34 65 20 04/11/19 08:00 36.4 C 68 16 147/98 H 99 04/11/19 06:00 65 04/11/19 04:00 37.2 C 62 18 133/87 98 04/11/19 02:01 70 18 02/22/20 01:54 68 18 04/11/19 00:00 36.0 C L 69 20 146/89 H 98 04/10/19 23:17 77 04/10/19 20:00 75 98 04/10/19 19:47 80 18 04/10/19 19:42 76 18 04/10/19 19:36 36.5 C 77 18 158/107 H 98 04/10/19 18:00 80 04/10/19 16:00 36.5 C 83 20 180/132 H 98 04/10/19 14:52 82 18 04/10/19 14:42 80 18 Intake/Output Intake/Output: Intake & Output 04/08/19 04/09/19 04/10/19 04/11/19 23:59 23:59 23:59 23:59 Intake Total 0856 119 0780 1140 Output Total 1100 7100 3725 Balance 8631 -538 -2170 -3973 Meds/Results Medications: Active Medications Generic Name Dose Route Start Last Admin Trade Name Freq PRN Reason Stop Dose Admin Albuterol 2.5 mg 04/09/19 02:00 04/11/19 09:32 Albuterol Sulf Neb 2.5mg/0.5ml INHALATION 2.5 mg Q6HRT CE Administration Alprazolam 0.25 mg 04/10/19 12:06 04/11/19 10:09 Xanax PO 0.25 mg TID PRN Administration
--- NOTE | 2019-04-11 14:14 | PM.PNNEP ---
Progress Note: A&P Assessment and Plan (1) Acute renal failure: Code(s): N17.9 - Acute kidney failure, unspecified Status: Acute Assessment and Plan: all acute or is there a chronic component??? creatinine was ~ 1.2mg/dl in 2017 CT of abdomen with normal kidneys factors likely contributing to elevated creatinine: - depressed EF/CHF (comonent of cardiorenal syndrome) - uncontrolled hypertension - pulmonary hypertension - muscle mass and intake of creatinine relatively stable since admission follow trend of labs (2) Acute CHF (congestive heart failure): Qualifiers: Heart failure type: unspecified Qualified Code(s): I50.9 - Heart failure, unspecified Code(s): I50.9 - Heart failure, unspecified Status: Acute Assessment and Plan: Cardiology following Echo results noted (3) Influenza A: Code(s): J10.1 - Influenza due to other identified influenza virus with other respiratory manifestations Status: Acute Assessment and Plan: tested positive completed course of Tamiflu supportive therapy (4) Uncontrolled hypertension: Code(s): I10 - Essential (primary) hypertension Status: Chronic Assessment and Plan: better control with BB, SRI-I and diuretics follow trend of hemodynamics Will continue to follow. Subjective Date/time seen: 04/11/19 14:14 Appears to be doing reasonably well -- respiratory status and lower extremity edema seem stable if not better; tolerating diuretics and SRI-I use; no distress voiced at this time. Exam Narrative: Exam Narrative: General: WD/WN male in NAD Heart: normal S1 and S2; no rub Lungs: clear but decreased at bases Abdomen: soft, nontender, nondistended, positive bowel sounds Extremities: no cyanosis or clubbing; trace edema Skin: warm and dry Objective Data Vital Signs Vital Signs: Vital Signs Temp Pulse Resp BP Pulse Ox 04/11/19 12:00 36.2 C L 59 L 12 141/90 H 98 04/11/19 10:02 74 04/11/19 09:34 65 20 04/11/19 08:00 36.4 C 68 16 147/98 H 99 04/11/19 06:00 65 04/11/19 04:00 37.2 C 62 18 133/87 98 04/11/19 02:01 70 18 04/11/19 01:54 68 18 04/11/19 00:00 36.0 C L 69 20 146/89 H 98 04/10/19 23:17 77 04/10/19 20:00 75 98 04/10/19 19:47 80 18 04/10/19 19:42 76 18 04/10/19 19:36 36.5 C 77 18 158/107 H 98 04/10/19 18:00 80 04/10/19 16:00 36.5 C 83 20 180/132 H 98 04/10/19 14:52 82 18 04/10/19 14:42 80 18 Intake/Output Intake/Output: Intake & Output 04/08/19 04/09/19 04/10/19 04/11/19 23:59 23:59 23:59 23:59 Intake Total 8445 324 4035 1140 Output Total 1100 7100 3720 Balance 4618 -742 -4941 -4474 Meds/Results Medications: Active Medications Generic Name Dose Route Start Last Admin Trade Name Freq PRN Reason Stop Dose Admin Albuterol 2.5 mg 04/09/19 02:00 04/11/19 09:32 Albuterol Sulf Neb 2.5mg/0.5ml INHALATION 2.5 mg Q6HRT CE Administration Alprazolam 0.25 mg 04/10/19 12:06 04/11/19 10:09 Xanax PO 0.25 mg TID PRN Administration Anxiety Aspirin 81 mg 04/09/19 09:00 04/11/19 10:03 Aspirin Ec PO 81 mg QAM CE Administration Atorvastatin Calcium 40 mg 04/11/19 09:00 04/11/19 10:03 Lipitor PO 40 mg DAILY CE Administration Carvedilol 6.25 mg 04/10/19 21:00 04/11/19 10:02 Coreg PO 6.25 mg Q12HR CE Administration Enoxaparin Sodium 100 mg 04/09/19 10:00 04/11/19 10:03 Lovenox SUB-Q 100 mg Q12HR CE Administration Furosemide 40 mg 04/12/19 09:00 Lasix Tablet PO DAILY CE Hydralazine HCl 10 mg 04/09/19 09:27 04/10/19 14:25 Apresoline Hcl Inj IV PUSH 10 mg Q4H PRN Administration Blood Pressure - High; Lisinopril 20 mg 04/11/19 12:35 04/11/19 12:59 Prinivil PO Not Given Q12HR CE Radiology Results: ITS Impr
[2019-04-11 15:13] LABS: Legionella pneumophila Ag Ur Not Detected (Not Detected)
[2019-04-11 15:18] LABS: Pneumococcal Antigen Urine Not Detected (Not Detected)
--- NOTE | 2019-04-11 15:22 | PM.DS ---
DS: Diagnosis Admitting Diagnosis Admitting Diagnosis: Non-ST elevation (NSTEMI) myocardial infarction Discharge Diagnosis (1) Non-ST elevation (NSTEMI) myocardial infarction: Code(s): I21.4 - Non-ST elevation (NSTEMI) myocardial infarction Status: Acute Assessment and Plan: Patient possibly had acute NSTEMI several weeks ago and may now be having symptoms from the low EF and severe HTN. Troponins elevated to 0.12 but flat. EKG more consistent with LVH and strain pattern. [facility] planned at some point. Plan for medical management. Appreciate Cardiology input. Treated with ASA, Coreg, lipitor. Will follow-up with cardiology as an outpatient for further management. (2) Acute CHF (congestive heart failure): Qualifiers: Heart failure type: unspecified Qualified Code(s): I50.9 - Heart failure, unspecified Code(s): I50.9 - Heart failure, unspecified Status: Acute Assessment and Plan: Echo showing EF 25% with severe pulmonary HTN and Grade IV diastolic dysfunction. BNP 1650. Etiology unclear but consider viral vs. uncontrolled HTN vs Ischemic vs infiltrative (sarcoid). Had an episode of chest pain 6 weeks ago. Lasix IV started. Renal function remained stable. Coreg and Lisinopril added. (3) Influenza A: Code(s): J10.1 - Influenza due to other identified influenza virus with other respiratory manifestations Status: Acute Assessment and Plan: Tested positive for influenza A. Fevers have resolved. He has had respiratory symptoms for several weeks but symptoms could be related to the low EF. Continue supportive care. Tamiflu held given the duration. (4) Uncontrolled hypertension: Code(s): I10 - Essential (primary) hypertension Status: Chronic Assessment and Plan: Blood pressure monitor closely. Patient noncompliant with his antihypertensive medications. Coreg and lisinopril started as mentioned above. Hydralazine was available as needed. (5) Acute renal failure: Code(s): N17.9 - Acute kidney failure, unspecified Status: Acute Assessment and Plan: Creatinine 1.8 on admission. Could be related to poor renal perfusion from his pulmonary HTN and low EF. Also patient is muscular and he takes creatine. Consider also CKD related to his uncontrolled HTN or possibly pulmonary renal syndrome. Lasix started. Creatinine remaining stable with the diuresis. He also appears to be tolerating the lisinopril. Creatinine at time of discharge 1 (6) Mediastinal adenopathy: Code(s): R59.0 - Localized enlarged lymph nodes Status: Acute Assessment and Plan: CT chest showing mediastinal adenoparthy. CT abdominal and pelvic also with lymphadenopathy. Concern for lymphoma or sarcoid. SRI level pending. Discussed with Gen Surgery about resecting an inguinal LN but they recommended discussing with Hem/Onc first to see if this could be a viral picture (seems unlikely). Dr Martínez consulted who recommended biopsy as an outpatient. Patient to follow-up with Dr. Martínez as an outpatient. (7) Pulmonary hypertension: Code(s): I27.20 - Pulmonary hypertension, unspecified Status: Acute Assessment and Plan: Apnea link showing AHI 52 and RI 54. Will need to see pulmonary for outpatient sleep study. DS: Summary Hospital Course Reason for hospitalization: 48yo male here for SOB. Please see H&P for details Hospital Course: As above. Status at Discharge Functional status at discharge: independent ambulation Overall status at discharge: patient is back to baseline Time Spent with Patient Time attestation: Total time spent providing and/or coordinating discharge services: 38 minutes. Time spent: Greater than 30 minutes Specific discharge activities: Discussed with Cardiology and Nephrology. Exam Narrative: Exam Narrative: Gen - NARD Chest -distant but clear breath sounds. CV -
[2019-04-14 12:24] LABS: Angiotensin Converting Enzyme 51 U/L (9-67)
--- NOTE | 2019-04-17 13:45 | PC.NURSE ---
SRI - 51. Dr. Burkett is aware.
== END 2019-04-11 19:06 | disposition home or self-care (01) | DRG 194 ==
LOC: ANHED 04-09 00:21 → ANHIMU 04-09 01:16
PROVIDERS: Emergency Medicine; Internal Medicine Cardiovascular Disease; Internal Medicine Hematology & Oncology; Admitting Provider Family Medicine; Emergency Provider Emergency Medicine; PCP Family Medicine; Visit Provider Internal Medicine
DX: I11.0 Hypertensive heart disease with heart failure (principal); N17.9 Acute kidney failure, unspecified; F41.9 Anxiety disorder, unspecified; Z87.891 Personal history of nicotine dependence; J10.1 Influenza due to other identified influenza virus with other respiratory manifestations; I50.9 Heart failure, unspecified; K22.70 Barrett's esophagus without dysplasia; I27.20 Pulmonary hypertension, unspecified; R59.0 Localized enlarged lymph nodes; I42.9 Cardiomyopathy, unspecified; H81.10 Benign paroxysmal vertigo, unspecified ear; E66.9 Obesity, unspecified; Z68.30 Body mass index [BMI] 30.0-30.9, adult; T46.5X6A Underdosing of other antihypertensive drugs, initial encounter; Z91.128 Patient's intentional underdosing of medication regimen for other reason; I25.2 Old myocardial infarction
CPT/HCPCS: 36415; 71046; 71275; 74176; 80048; 80053; 80061; 80069; 80307; 82164; 82550; 83605; 83615; 83880; 84443; 84484; 85025; 85027; 85380; 85610; 85730; 87040; 87449; 87804; 87899; 93005; 93306; 93970; 94640; 94762; 96365; 96367; 96372; 96374; 96375; 99291; A9270; G0378; J0360; J0456; J0696; J1650; J1940; J7030; Q9967

== ENCOUNTER 2021-09-06 21:55 | Emergency (ER) | payer OTHER, SELFPAY ==
--- NOTE | ~2021-09-06 | XR_ITS ---
EXAMINATION: XR chest 1V portable Exam Date/Time: 09/06/2021 22:40 CDT HISTORY: BILAT LEG SWELLING X 1 WEEK/HX OF CHF Comparison: 04/08/2019. RESULT: Lines, tubes, and devices: None. Lungs and pleura: Clear. Cardiomediastinal silhouette: Stable cardiomediastinal silhouette. Other: No acute osseous or upper abdominal finding. IMPRESSION: No acute cardiopulmonary process. Reviewed, dictated and finalized at location K.
--- NOTE | 2021-09-06 22:12 | ED.GENADULT ---
HPI - General Adult General Chief complaint: Extremity Problem,Nontraumatic Stated complaint: swelling in legs,infection on leg Time Seen by Provider: 09/06/21 22:12 Source: patient Mode of arrival: ambulatory History of Present Illness HPI narrative: 50-year-old male with a history of ex smoking, hypertension,coronary artery disease /CHF(ef 25% and Diastolic dysfunction), pulmonary hypertension, CKD, Braun's esophagus, thoracic and abdominal lymphadenopathy presents to the E -- bilateral leg swelling. the right leg is red and warm. No fever or chills. -- Hypertension with a blood pressure of 213/117. The patient has been off his lisinopril for the past 1 week. No chest pain or shortness of breath. Onset (ago): day(s) ( For the past few days) Location: lower extremity Related Data Home Medications Medication Instructions Recorded Confirmed hydroxyzine HCl 25 mg tablet 25 mg TID PRN Anxiety 09/06/21 09/06/21 potassium chloride 10 mEq 10 meq PO BID 09/06/21 09/06/21 tablet,extended release Allergies Allergy/AdvReac Type Severity Reaction Status Date / Time No Known Allergies Allergy Verified 09/06/21 22:16 Review of Systems Review of Systems: All systems reviewed & are unremarkable except as noted in HPI and below Constitutional: Constitutional: Reports as per HPI and Reports no additional constitutional complaints Eyes: Eyes: Reports as per HPI and Reports no additional eye complaints ENT: Reports system reviewed and no additional complaints, except as documented and Reports as per HPI Cardiovascular: Cardiovascular: Reports as per HPI and Reports no additional cardiovascular complaints Respiratory: Respiratory: Reports as per HPI and Reports no additional respiratory complaints Gastrointestinal: Gastrointestinal: Reports as per HPI and Reports no additional gastrointestinal complaints Genitourinary: Genitourinary: Reports no additional male genitourinary complaints and Reports as per HPI Musculoskeletal: Musculoskeletal: Reports no additional musculoskeletal complaints and Reports as per HPI Integumentary/Breasts: Skin/Breast: Reports system reviewed and no additional complaints, except as docu and Reports as per HPI Comments: bilateral leg swelling. Right leg is red/ erythematous and warm to touch. No regional lymphadenopathy. Neurologic: Reports system reviewed and no additional complaints, except as documented and Reports as per HPI Psychiatric: Psychiatric: Reports no additional psychiatric complaints and Reports as per HPI Endocrine: Endocrine: Reports no additional endocrine complaints and Reports as per HPI Hematologic/Lymphatic: Hematologic/Lymphatic: Reports no additional hematologic/lymphatic complaints and Reports as per HPI Allergic/Immunologic: Allergic/Immunologic: Reports no additional allergic/immunologic complaints and Reports as per HPI PMFSH Past Medical History Medical History Anxiety Braun's esophagus HTN (hypertension) Positional vertigo Pulmonary hypertension Surgical History Surgical History No significant past surgical history Social History Social History Smoking packs per day: 1 Smoking cigarettes per day: 20.0 Years smoked: 15 Smoking pack-years: 15.00 Smoking status: Former smoker Tobacco type: cigarettes Second hand tobacco smoke exposure: Yes Alcohol intake: never Substance use: never Gender identity (if verbalized by the patient): Male Spiritual care concerns: No Agree to blood products: Yes Exam Const: General: healthy appearing and no acute distress Nutritional Appearance: well nourished Orientation/consciousness: patient oriented x3 Limitations: no limitations Other: Hypertensive with a blood pressure of 213/117 HENMT: Head: normal to inspec
[2021-09-06 22:21] VITALS: BP 213/117; PULSE 84; RESP 16; TEMP 36.9; O2SAT 98
--- NOTE | 2021-09-06 22:30 | ECG_ITS ---
Measurements Intervals [place] Rate: 85 P: 55 [place]: 172 QRS: 29 QRSD: 101 T: 79 QT: 467 QTc: 556 Interpretive Statements SINUS RHYTHM POSSIBLE LEFT ATRIAL ENLARGEMENT LEFT VENTRICULAR HYPERTROPHY WITH ST-T CHANGE CANNOT RULE OUT SEPTAL INFARCT, AGE INDETERMINATE ST-T WAVE ABNORMALITY IN ANTEROLATERAL LEADS- CONSIDER ISCHEMIA BASELINE ARTIFACT- V1, V3 ABNORMAL ECG Electronically Signed On 09-06-2021 22:59:00 CDT by Jogn Macias D.O.
[2021-09-06] MEDS: cloNIDine HCL 0.2 MG TABLET PO (22:35)
[2021-09-06 22:44] LABS: Basophils Absolute Auto 0.02 K/mm3 (0.00-0.10); Basophils Percent Auto 0.2 % (0.0-1.0); Eosinophils Absolute Auto 0.01 K/mm3 (0.02-0.50); Eosinophils Percent Auto 0.1 % (1.0-6.0); Hemoglobin 11.5 g/dL (14.0-18.0); Immature Granulocyte Absolute 0.03 K/mm3 (0.00-0.00); Immature Granulocyte Percent A 0.4 % (0.0-0.0); Lymphocytes Absolute Auto 0.95 K/mm3 (1.10-4.50); Lymphocytes Percent Auto 11.7 % (18.0-42.0); Mean Corpuscular HGB Conc 34.8 g/dL (32.0-36.0); Mean Corpuscular Hemoglobin 33.2 pg (27.0-31.0); Mean Corpuscular Volume 95.4 fL (78.0-102.0); Mean Platelet Volume 8.2 fl (8.7-11.0); Monocytes Absolute Auto 0.65 K/mm3 (0.10-0.90); Neutrophils Absolute Auto 6.5 K/mm3 (1.7-7.2); Neutrophils Percent Auto 79.6 % (50.0-70.0); Platelet Count Result 214 K/mm3 (150-420); Red Blood Count 3.46 M/mm3 (4.70-6.10); White Blood Count 8.2 K/mm3 (4.8-10.8)
[2021-09-06 22:59] LABS: Lactic Acid Reflex 0.6 mmol/L (0.4-2.0)
[2021-09-06 23:09] LABS: Alanine Aminotransferase 55 U/L (16-63); Albumin Level 3.3 g/dL (3.4-5.0); Alkaline Phosphatase 81 U/L (46-116); Anion Gap 4 mmol/L (8-16); Aspartate Amino Transferase 38 U/L (15-37); Bilirubin,Total 0.4 mg/dL (0.00-1.00); Blood Urea Nitrogen 24 mg/dL (7-18); Calcium 9.2 mg/dL (8.5-10.1); Carbon Dioxide 32 mmol/L (21-32); Chloride 102 mmol/L (98-108); Estimated Glomerular Filt Rate 37; Glucose 123 mg/dL (70-99); NT Pro B Type Natriuretic Pept 4882 pg/mL (0-125); Osmolality Calculated 291 mOsm/kg (285-295); Potassium 3.6 mmol/L (3.5-5.1); Sodium 138 mmol/L (136-145); Thyroid Stimulating Hormone 2.79 uIU/mL (0.36-3.74); Total Protein 7.8 g/dL (6.4-8.2); Troponin I 55.6 ng/L (0.00-60.4)
[2021-09-06 23:09] LABS: Add Urine Microscopic? YES; Appearance Urine Clear (Clear); Bilirubin Urine Negative (Negative); Blood Urine 1+ (Negative); Color Urine Light Yellow (Yellow); Glucose Urine UA Negative (Negative); Ketones Urine Negative (Negative); Leukocyte Esterase Ur Negative (Negative); Nitrate Urine Negative (Negative); Protein Urine 3+ (Negative); Specific Grav Ur 1.025 (1.010-1.020); Urobilinogen Urine 0.2 mg/dL (0.2-1.0)
[2021-09-06 23:13] LABS: Bacteria Urine Trace /hpf; Squamous Epithelial Cell Urine Rare /hpf (Few); WBC Urine None seen /hpf (0-3)
[2021-09-06] MEDS: hydrALAZINE HCL 20 MG/ML VIAL 10 MG IV PUSH (23:21)
[2021-09-06 23:33] VITALS: BP 162/105; PULSE 72; RESP 16; O2SAT 95
[2021-09-07] MEDS: AMOXICILLIN/CLAVULANATE K 875-125 MG TAB 1 TABLET PO (00:04)
[2021-09-07] MEDS: amLODIPine BESYLATE 2.5 MG TABLET PO (00:04)
[2021-09-07] MEDS: lisinopriL 20 MG TABLET PO (00:04)
[2021-09-07 00:15] VITALS: BP 164/102; PULSE 83; RESP 16; O2SAT 98
== END 2021-09-07 00:19 | disposition home or self-care (01) ==
PROVIDERS: Emergency Provider Internal Medicine Critical Care Medicine; PCP Family Medicine
DX: I16.0 Hypertensive urgency (principal); I50.9 Heart failure, unspecified; N18.30 Chronic kidney disease, stage 3 unspecified; L03.115 Cellulitis of right lower limb; I12.9 Hypertensive chronic kidney disease with stage 1 through stage 4 chronic kidney disease, or unspecified chronic kidney disease; Z87.891 Personal history of nicotine dependence
CPT/HCPCS: 36415; 71045; 80053; 81001; 83605; 83880; 84443; 84484; 85025; 93005; 96374; 99284; A9270; J0360

== ENCOUNTER 2022-02-19 02:16 | Observation (INO) | payer OTHER, SELFPAY ==
[2022-02-19] VITALS (23 sets, daily range): BP systolic 110–180; BP diastolic 79–113; PULSE 66–89; RESP 10–21; TEMP 36.2–36.8; O2SAT 94–100; BMI 28.3
--- NOTE | ~2022-02-19 | XR_ITS ---
EXAMINATION: XR chest 1V portable DATE: 02/19/2022 03:07 INDICATION: Chest pain. TECHNIQUE: A single frontal view of the chest was obtained. COMPARISON: Chest single view 09/06/2021, chest CT 04/08/2019 FINDINGS: The chest demonstrates clear lungs without pneumonia, pleural effusion, or pneumothorax. Th e heart size is normal. IMPRESSION: 1. No acute cardiopulmonary disease. Reviewed, dictated and finalized at location A. COORDINATOR
--- NOTE | ~2022-02-19 | XR_ITS ---
EXAMINATION: XR chest 1V DATE: 02/21/2022 14:32 INDICATION: Chest pain. Dyspnea. TECHNIQUE: A single frontal view of the chest was obtained. COMPARISON: Chest single view 02/19/2022 FINDINGS: The chest demonstrates clear lungs without pneumonia, pleural effusion, or pneumothorax. Th e heart size is normal. IMPRESSION: 1. No acute cardiopulmonary disease. Reviewed, dictated and finalized at location A. LIANCE QUALITY PERFORMANCE ANALYST
--- NOTE | ~2022-02-19 | US_ITS ---
EXAMINATION: US art doppler w press LE BI DATE: 02/20/2022 21:44 INDICATION: Claudication. TECHNIQUE: Segmental pressures and plethysmographic and Doppler waveforms of the brachial and lower e xtremity arteries were obtained. COMPARISON: None. FINDINGS: Right and left brachial artery pressures of 157 mm Hg and 147 mm Hg, respectively, are concordant (no rmal difference <= 30 mmHg). The right thigh, below knee, and ankle pressures could not be measured due to inability to cuff occlu de the arteries. The right ankle-brachial index (DESIREE) could not be measured (normal >= 0.9-1.0). The right great toe-brachial index (TBI) is 0.69 (normal >= 0.65). Arterial Doppler waveforms are at roxane st triphasic in common femoral artery and superficial femoral artery, biphasic in popliteal artery, a nd at least triphasic in posterior tibial artery and dorsalis pedis. The left thigh pressures could not be measured due to inability to cuff occlude the arteries. The lef t DESIREE is 1.20. The left TBI is 0.64. Arterial Doppler waveforms are at least triphasic from common fe moral artery to the ankle. IMPRESSION: 1. Borderline decreased left TBI, consistent with left-sided arterial occlusive disease. Note that AB I may be overestimated if arteries are calcified. 2. Normal right TBI. Nondiagnostic right DESIREE. Reviewed, dictated and finalized at location A. RGLASS DOWEL DRAWING OPERATOR IMPRESSION: 1. Borderline decreased left TBI, consistent with left-sided arterial occlusive disease. Note that DESIREE may be overestimated if arteries are calcified. 2. Normal right TBI. Nondiagnostic right DESIREE.
--- NOTE | ~2022-02-19 | NM_ITS ---
EXAMINATION: NM tino stress w perfusion DATE: 02/20/2022 10:20 INDICATION: Chest pain. TECHNIQUE: Rest images were obtained following intravenous administration of 9.2 mCi Tc99m tetrofosmi n (Myoview). The patient was infused intravenously with Lexiscan (regadenoson). Then, 30.8 mCi Tc99m tetrofosmin (Myoview) was administered intravenously, and supine and prone stress images were obtaine d. Data was reconstructed into short axis and horizontal and vertical long axis SPECT images. Gated S PECT images were also obtained. COMPARISON: CT abdomen and pelvis 04/09/2019 FINDINGS: There is no definite reversible or fixed perfusion abnormality to suggest ischemia or infar ction. There is no segmental wall motion abnormality. Left ventricular ejection fraction measures 5 3%. IMPRESSION: 1. No definite ischemia or infarct. 2. Normal left ventricular ejection fraction measuring 53%. Reviewed, dictated and finalized at location A. ESSIONAL ATHLETE
--- NOTE | ~2022-02-19 | NM_ITS ---
EXAMINATION: NM pulmonary perfusion DATE: 02/21/2022 14:32 INDICATION: Chest pain. Dyspnea. TECHNIQUE: 5.097 mCi Tc-99m MAA was administered intravenously for perfusion images. Scintigraphic i mages of the chest were obtained. COMPARISON: Chest single view 02/21/2022 FINDINGS: Perfusion images show no defects. IMPRESSION: 1. Pulmonary embolism absent (normal perfusion). Reviewed, dictated and finalized at location A. TIONS SPECIALIST
--- NOTE | ~2022-02-19 | US_ITS ---
EXAMINATION: US venous doppler LE RT DATE: 02/19/2022 12:25 INDICATION: Right calf pain. TECHNIQUE: Grayscale ultrasound images without and with compression and Doppler ultrasound images of the right lower extremity veins were obtained. COMPARISON: Ultrasound 04/09/2019 FINDINGS: The visualized portions of right common femoral vein, profunda (deep) femoral vein, femoral vein, pop liteal vein, peroneal veins, posterior tibial veins, and greater saphenous vein outflow are patent. S ubcutaneous edema is noted. IMPRESSION: 1. No deep venous thrombosis. Reviewed, dictated and finalized at location A. GER INTEL
--- NOTE | ~2022-02-19 | XR_ITS ---
Right Knee Technique: AP and lateral views were obtained. Clinical History: Pain Findings: No fracture or dislocation is seen. Osseous alignment is anatomic. Minimal tricompartmental spurring noted. Soft tissues are unremarkable. No joint effusion is seen. Impression: Minimal tricompartmental degenerative spurring. Reviewed, dictated and finalized at [facility]. FLIGHT REFUELING CRAFTSMAN Impression: Minimal tricompartmental degenerative spurring.
--- NOTE | ~2022-02-19 | XR_ITS ---
Left Knee Technique: AP, lateral, and sunrise views were obtained. Clinical History: Pain Findings: No fracture or dislocation is seen. Osseous alignment is anatomic. There is advanced degene rative change of the medial compartment, with medial compartment narrowing, joint line osteophyte for mation, and reactive sclerosis. There is mild patellar spurring. Soft tissues are unremarkable. No emeterio int effusion is seen. 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 Minimal patellar spurring. Reviewed, dictated and finalized at location M. NESS CENTER MANAGER Impression: Advanced degenerative change of the medial compartment. Minimal patellar spurring.
--- NOTE | 2022-02-19 02:22 | ECG_ITS ---
Measurements Intervals [place] Rate: 84 P: 58 MS: 180 QRS: 41 QRSD: 101 T: 62 QT: 414 QTc: 492 Interpretive Statements SINUS RHYTHM CANNOT RULE OUT SEPTAL INFARCT, AGE INDETERMINATE ST-T WAVE ABNORMALITY IN ANTEROLAT/INF LEADS- CONSIDER ISCHEMIA ABNORMAL ECG COMPARED TO ECG 09/06/2021 22:37:23 NO SIGNIFICANT CHANGES Electronically Signed On 02-19-2022 7:49:20 [employer]PORATE GENERAL MANAGER by Jong Macias D.O.
[2022-02-19 02:45] LABS: Basophils Percent Auto 0.5 % (0.2-1.2); Eosinophils Percent Auto 0.2 % (0-4.4); Hematocrit 32.7 % (42.0-52.0); Hemoglobin 11.2 g/dL (14.0-18.0); Immature Granulocyte Absolute 0.03 K/mm3 (0.00-0.031); Immature Granulocyte Percent A 0.4 % (0-0.5); Lymphocytes Absolute Auto 1.21 K/mm3 (0.9-3.2); Lymphocytes Percent Auto 14.4 % (18.3-44.2); Mean Corpuscular HGB Conc 34.3 g/dl (32-36); Mean Corpuscular Volume 96.5 fl (80-100); Mean Platelet Volume 8.5 fl (7.4-10.4); Monocytes Absolute Auto 0.9 K/mm3 (0.1-0.6); Monocytes Percent Auto 11.1 % (2.6-8.5); Neutrophils Absolute Auto 6.2 K/mm3 (1.3-6.7); Neutrophils Percent Auto 73.4 % (45.5-73.1); Platelet Count Result 221 k/mm3 (150-375); Red Blood Count 3.39 M/mm3 (4.6-6.20); Red Cell Distribution Width 11.2 % (11.5-14.5); White Blood Count 8.4 K/mm3 (4.5-10.0)
[2022-02-19 02:55] LABS: Alanine Aminotransferase 61 U/L (6-50); Albumin Level 4.2 g/dL (3.5-5.1); Alkaline Phosphatase 82 U/L (38-126); Anion Gap 6 mmol/L (8-16); Aspartate Amino Transferase 54 U/L (17-59); Bilirubin,Total 0.3 mg/dL (0.2-1.3); Blood Urea Nitrogen 47 mg/dL (9-20); Calcium 8.9 mg/dL (8.4-10.2); Carbon Dioxide 31 mmol/L (22-30); Chloride 96 mmol/L (98-107); Estimated CRCL calculation 50 ml/min; Estimated Glomerular Filt Rate 36; Glucose 150 mg/dL (65-110); Lipase 53 U/L (23-300); Potassium 4.2 mmol/L (3.4-5.0); Sodium 133 mmol/L (137-145)
[2022-02-19 02:56] LABS: INR 1.1; Prothrombin Time 13.8 Seconds (11.1-14.7)
[2022-02-19 02:57] LABS: Partial Thromboplastin Time 45.7 SECONDS (22.3-36.8)
[2022-02-19] MEDS: ASPIRIN 81 MG CHEWABLE TABLET 324 MG PO (02:59)
--- NOTE | 2022-02-19 03:04 | ED.CHESTPAIN ---
HPI - Chest Pain General Chief Complaint: Chest Pain Stated Complaint: chest pain Time Seen by Provider: 02/19/22 02:26 Source: RN notes reviewed History of Present Illness HPI narrative: Patient presents emergency department from home for chest pain. Patient has been having intermittent chest pain since yesterday. The pain is located the midsternal chest does not radiate described as sharp and stabbing. Is been associated with shortness of breath. 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 Patient does note swelling and pain to his right lower leg that he has had he states for some time Related Data Home Medications Medication Instructions Recorded Confirmed hydroxyzine HCl 25 mg tablet 25 mg TID PRN Anxiety 09/06/21 09/06/21 potassium chloride 10 mEq 10 meq PO BID 09/06/21 09/06/21 tablet,extended release Allergies Allergy/AdvReac Type Severity Reaction Status Date / Time No Known Allergies Allergy Verified 09/06/21 22:16 Review of Systems Review of Systems: Gen.: Denies fevers or chills ENT: Denies congestion Respiratory: Reports shortness of breath CV: Reports chest pain GI: Denies abdominal pain nausea, emesis or diarrhea denies burning, urgency, frequency or hematuria Musculoskeletal: Denies back pain or muscle pain Neuro: Denies numbness, tingling, weakness or focal weakness Skin: Denies rash Except as documented, all other systems reviewed and negative [facility] Past Medical History Medical History Anxiety Braun's esophagus HTN (hypertension) Positional vertigo Pulmonary hypertension Surgical History Surgical History No significant past surgical history Social History Social History Smoking packs per day: 1 Smoking cigarettes per day: 20.0 Years smoked: 15 Smoking pack-years: 15.00 Smoking status: Former smoker Tobacco type: cigarettes Second hand tobacco smoke exposure: Yes Alcohol intake: never Substance use: never Gender identity (if verbalized by the patient): Male Spiritual care concerns: No Agree to blood products: Yes Exam Narrative: APPEARANCE: No acute distress, nontoxic, resting in bed EYES: EOMI HEENT: Normocephalic, atraumatic, OMM RESPIRATORY: No respiratory distress Clear to auscultation bilaterally with no rhonchi wheezing or rales. CARDIOVASCULAR: Regular rate and rhythm without murmurs rubs or gallops. ABDOMINAL: Soft, nontender, nondistended, no rebound or guarding MUSCULOSKELETAl: Moves all extremities. No clubbing, cyanosis 2+ edema left lower extremity 3+ edema of the right lower extremity with erythema around the calf down to the ankle dorsalis pedis pulse 2+ bilaterally NEURO: Awake and alert. Following commands, speech normal, no focal deficits SKIN:: Warm, dry. No rashes lesions or abrasions PSYCHIATRIC: Normal affect/mood, Course Course Emergency Course: Reviewed old records including previous admission patient with EF of 25% history of stage IV diastolic dysfunction Discussed with Dr. Ladd presentation work-up agrees with consult Discussed Dr. Rodriguez agrees with admission. We discussed the patient's right leg swelling shortness of breath elevated D-dimer agrees with plan to give single dose of Lovenox to cover both for unstable angina and DVT/PE with ultrasound and VQ scan ordered for a.m. Discussed with patient and family results of workup and diagnosis. Discussed need for admission. Patient and family understand and agree to current treatment plan Vital Signs Vital signs: Vital Signs Temperature 98 F 02/19/22 02:49 Pulse Rate 83 02/19/22 02:49 Respiratory Rate 20 01/0
[2022-02-19 03:07] LABS: Troponin I 0.024 ng/mL (0.000-0.034)
[2022-02-19 03:19] LABS: NT Pro B Type Natriuretic Pept 687 pg/mL (5-100)
[2022-02-19 03:32] LABS: D Dimer 1.28 ug/mL (<0.48)
[2022-02-19] MEDS: ENOXAPARIN 100 MG/ML SYRINGE SUB-Q (03:57)
--- NOTE | 2022-02-19 04:38 | PC.NURSE ---
Spoke with lab. Covid test not done but sent to lab. States that the lab test was canceled. Explained to lab that orders are showing a covid test ordered. Esplained to lab that there were 2 tests for covid and one was canceled due to duplicate order. Lab stated would check into order and call back.
--- NOTE | 2022-02-19 05:02 | ADMGEN ---
This patient, Patric Rodriges, was admitted to IMU Room 200-01 at 0503. Patient/family oriented to hospital policies and general routines including ID bracelet, bed and alarms, visiting hours, pain management, procedures, bathroom and other care routines, personal items, smoking policy, room service/diet, and visiting hours. Information on how to activate the Rapid Response Team has been discussed. Patient/Family are encouraged to report perceived risks to care and to ask questions if they do not understand what they are told or what they should do.
[2022-02-19 05:20] LABS: Influenza A QL RT-PCR Negative (Negative); Influenza B QL RT-PCR Negative (Negative); RSV RNA, RT-PCR Negative (Negative); SARS-CoV-2 RNA PCR Negative
[2022-02-19 07:36] LABS: Troponin I 0.027 ng/mL (0.000-0.034)
[2022-02-19 10:03] LABS: Troponin I 0.025 ng/mL (0.000-0.034)
--- NOTE | 2022-02-19 10:06 | PM.CNCAR ---
Assessment and Plan Assessment and plan (1) Chest pain: Code(s): R07.9 - Chest pain, unspecified Status: Acute Plan This is a 51-year-old man with longstanding hypertension who appears to have left ventricular systolic dysfunction and chronic renal insufficiency as a result of this. He was told by his current physician that his LV function had improved with medical therapy. Obviously I do not have access to those records as I dictate this note. He enters the hospital with chest pain episodes that appear to be atypical of, and not suggestive of myocardial ischemia. Obviously having said this he is at risk for coronary artery disease as was mentioned by his previous physicians as well. The ED physician understandably was concerned about the possibility of DVT and PE and lower extremity venous Doppler and V/Q scan is a ordered for this morning. I will order a new echocardiogram to assess his LV systolic function. We will consider Lexiscan nuclear stress testing to look for ischemic disease given his chest pain symptoms and chronic kidney disease which makes him a suboptimal candidate for an angiogram. For now I would continue his amlodipine and carvedilol unless we have data to suggest that he should be on an alternative regimen for LV dysfunction Bk Ladd MD [facility] History of Present Illness History of Present Illness Consult date/time: 02/19/22 10:06 Reason For Visit: Chest Pain, Right Leg Swelling, Dyspnea Narrative: This is a 51-year-old man admitted to the hospital after experiencing some chest pain at his home and being seen in the emergency department. I am seeing him at consultation request at the referral of the hospitalist. The patient was sleeping soundly in bed snoring loudly when I entered the room to see him. Obviously in no distress. Upon awakening he does not report any active chest pain. The patient is unknown to me prior to this consultation but is known to other physicians here at [facility] and elsewhere. According to what I can gather from reviewing the records he is known to have a history of left ventricular systolic dysfunction when he was seen here 2 years ago by another Cardiology group. He was experiencing some chest pain at that time as well. He was found to have left ventricular enlargement with an ejection fraction low about, about 30% he was treated with medical therapy including carvedilol lisinopril amlodipine and furosemide. He was seen in their office for follow-up for a short period of time and then stopped going there for follow-up. He currently sees a physician in and was pill for his primary care who he states has told him that his heart has returned to good strength and is now managing his case. He does not have a peg driver that he actively sees. The patient does have a history of chronic kidney disease and for that reason there was understandable has had hesitancy to perform a coronary angiogram on him a couple of years ago. After being seen in the emergency room his electrocardiogram shows sinus rhythm with left ventricular hypertrophy and secondary repolarization abnormalities. Compared to previous tracings in the chart there are no changes. His troponin levels are slightly elevated but flat consistent with his chronic kidney disease his creatinine is 2.0, also consistent with previous findings a couple of years ago. According to the record his current medical regimen includes low doses of amlodipine and carvedilol but not his SRI-inhibitor. He has a history of chronic lower extremity edema that is sometimes worse than others. His right lower extremity was more edematous recently and appeared to be warm and inflamed. This led to the ER physician having concern regarding the possibility of DVT/PE. A venous Doppler and a V/Q scan have been ordered for this morning which have not yet occurred. Patient states that his functional capacity is markedly limited by the fact that when he stands
--- NOTE | 2022-02-19 12:44 | PM.IMHP ---
H&P: HPI History of Present Illness Date/Time: 02/19/22 12:44 Chief Complaint: Patient presents emergency department from home for chest pain.? Patient has been having intermittent chest pain since yesterday.? The pain is located the midsternal chest does not radiate described as sharp and stabbing.? Is been associated with shortness of breath.? 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 Patient does note swelling and pain to his right lower leg that he has had he states for some time PMFSH Past Medical History Medical History Anxiety Braun's esophagus HTN (hypertension) Positional vertigo Pulmonary hypertension Surgical History Surgical History No significant past surgical history Family History Family History Mother Hypertension Father Hypertension Heart attack Social History Social History Smoking packs per day: 1 Smoking cigarettes per day: 20.0 Years smoked: 15 Smoking pack-years: 15.00 Smoking status: Former smoker Tobacco type: cigarettes Second hand tobacco smoke exposure: Yes Alcohol intake: never Substance use: never Lack of Transportation: No Lack of Food: Never True Current Housing: I Have Housing Concerned About Future Housing: No Difficulty Paying Gas/Electric Bills: No Difficulty Paying for Meds: No Currently Unemployed: No Education: Decline to Answer Difficulty w/ Childcare or Family Care: No Gender identity (if verbalized by the patient): Male Spiritual care concerns: No Agree to blood products: Yes Meds Home Medications and Allergies Home Medications Medication Instructions Recorded Confirmed Type aspirin 81 mg tablet,delayed 81 mg PO QAM #30 tabs 04/11/19 02/19/22 Rx release carvedilol 6.25 mg tablet (Coreg) 6.25 mg PO Q12HR #60 tabs 04/11/19 02/19/22 Rx furosemide 40 mg tablet 40 mg PO DAILY #30 tabs 04/11/19 02/19/22 Rx potassium chloride 10 mEq 10 meq PO BID 09/06/21 02/19/22 History tablet,extended release amlodipine 2.5 mg tablet (Norvasc) 2.5 mg PO DAILY #30 tabs 09/07/21 02/19/22 Rx Allergies Allergy/AdvReac Type Severity Reaction Status Date / Time No Known Allergies Allergy Verified 09/06/21 22:16 Vital Signs Vital Signs - 24 hr 02/19/22 02:49 02/19/22 02:53 02/19/22 02:52 Temperature 98 F Pulse Rate 83 83 Respiratory Rate 20 14 Blood Pressure 169/100 H Pulse Oximetry 99 99 Oxygen Delivery Room Air Room Air 02/19/22 03:00 02/19/22 03:01 02/19/22 03:15 Temperature Pulse Rate 87 89 81 Respiratory Rate 21 H 10 L 11 L Blood Pressure 148/109 H Pulse Oximetry Oxygen Delivery 02/19/22 03:16 02/19/22 03:30 02/19/22 03:31 Temperature Pulse Rate 78 78 78 Respiratory Rate 14 15 13 Blood Pressure 152/93 H 155/101 H Pulse Oximetry 97 96 Oxygen Delivery 02/19/22 04:49 02/19/22 05:12 02/19/22 05:20 Temperature 98.3 F 97.3 F L Pulse Rate 84 73 73 Respiratory Rate 18 20 20 Blood Pressure 110/79 179/113 H Pulse Oximetry 99 99 99 Oxygen Delivery Room Air 02/19/22 06:00 02/19/22 08:00 02/19/22 08:15 Temperature 97.8 F Pulse Rate 80 77 73 Respiratory Rate 18 Blood Pressure 161/98 H Pulse Oximetry 99 Oxygen Delivery 02/19/22 08:00 02/19/22 10:00 Temperature Pulse Rate 83 Respiratory Rate Blood Pressure Pulse Oximetry Oxygen Delivery Room Air Exam Narrative: General: alert and oriented Psych: appropriate mood nad affect Eyes: PERRLA Neck: Trachea midline, no new lesions Skin: no changes Lungs: CTA Cardiac: Normal S1,S2, no
--- NOTE | 2022-02-19 13:00 | PCCARD ---
DR FIERRO SAID TO CANCEL LIMIT ECHO ORDERED 02/19/22 - HE ORDERED A LEXISCAN STRESS TEST FOR 02/20/22 AND DID NOT THINK HE NEEDED AN ECHO SO HE SAID TO CANCEL IT.
[2022-02-19] MEDS: POTASSIUM CHLORIDE 10 MEQ TABLET.ER PO (16:21)
[2022-02-19] MEDS: carvediloL 6.25 MG TABLET PO (20:22)
[2022-02-19] MEDS: PANTOPRAZOLE 40 MG TABLET PO (23:34)
[2022-02-20] VITALS (15 sets, daily range): BP systolic 134–186; BP diastolic 83–116; PULSE 60–80; RESP 12–20; TEMP 36.2–36.8; O2SAT 96–100
--- NOTE | 2022-02-20 | EST_ITS ---
Patient Info Name: Patric Rodriges Age: 51 years : 1970 Gender: Male Ht: 72 in Wt: 208 lbs BSA: 2.21 m2 HR: 67 bpm BP: 176 / 100 mmHg Heart Rhythm: Sinus Rhythm Exam Date: 02/20/2022 8:59 AM Exam Location: [facility] Patient Status: Inpatient Admit Date: 02/19/2022 Staff Ordering Physician: Bk Ladd MD Attending Provider: Patric Rodriguez DO Exercise Technologist: Lily Gay CT Nurse: EB BARNEY Exam Type: CA stress tino w NM Study Info Indications R07.9 - Chest pain, unspecified Summary 1. No abnormal ST/T wave changes diagnostic of ischemia with Lexiscan. 2. Please correlate with nuclear medicine images, reported separately. Protocol: Lexiscan Stress ECG Details Stage: REST Duration (min): 4 min : 0 sec HR (bpm): 71 SBP (mmHg): 176 DBP (mmHg): 100 Stage: REST Duration (min): 6 min : 57 sec HR (bpm): 67 SBP (mmHg): 176 DBP (mmHg): 100 Stage: STAGE 1 Duration (min): 0 min : 59 sec HR (bpm): 90 SBP (mmHg): 176 DBP (mmHg): 81 Stage: RECOVERY Duration (min): 1 min : 0 sec HR (bpm): 94 SBP (mmHg): 176 DBP (mmHg): 81 Stage: RECOVERY Duration (min): 2 min : 0 sec HR (bpm): 93 SBP (mmHg): 176 DBP (mmHg): 81 Stage: RECOVERY Duration (min): 3 min : 0 sec HR (bpm): 87 SBP (mmHg): 176 DBP (mmHg): 81 Stage: RECOVERY Duration (min): 4 min : 0 sec HR (bpm): 83 SBP (mmHg): 195 DBP (mmHg): 105 Stage: RECOVERY Duration (min): 5 min : 0 sec HR (bpm): 80 SBP (mmHg): 189 DBP (mmHg): 101 Stage: RECOVERY Duration (min): 5 min : 37 sec HR (bpm): 79 SBP (mmHg): 189 DBP (mmHg): 101 Rest HR: 67 bpm Peak HR: 94 bpm Rest Sys BP: 176 mmHg Peak Sys BP: 195 mmHg Max Pred HR: 170 bpm % Max Pred HR: 55 % Target HR: 145 bpm Max RPP: 18,330 bpm*mmHg Total Time: 1 min : 0 sec Rest Munoz BP: 100 mmHg Peak Munoz BP: 105 mmHg Total Dose: 0.4 mg Resting ECG Sinus rhythm with baseline ST-T wave abnormality in the inferolateral leads. Stress ECG Sinus rhythm. No abnormal ST/T wave changes diagnostic of ischemia with Lexiscan. Report Signatures
[2022-02-20 05:06] LABS: Basophils Percent Auto 0.6 % (0.2-1.2); Eosinophils Percent Auto 0.2 % (0-4.4); Hematocrit 31.9 % (42.0-52.0); Hemoglobin 10.9 g/dL (14.0-18.0); Immature Granulocyte Absolute 0.03 K/mm3 (0.00-0.031); Immature Granulocyte Percent A 0.5 % (0-0.5); Lymphocytes Absolute Auto 1.03 K/mm3 (0.9-3.2); Lymphocytes Percent Auto 15.7 % (18.3-44.2); Mean Corpuscular HGB Conc 34.2 g/dl (32-36); Mean Corpuscular Hemoglobin 33.2 pg (26-34); Mean Corpuscular Volume 97.3 fl (80-100); Mean Platelet Volume 8.8 fl (7.4-10.4); Monocytes Absolute Auto 0.7 K/mm3 (0.1-0.6); Monocytes Percent Auto 9.9 % (2.6-8.5); Neutrophils Absolute Auto 4.8 K/mm3 (1.3-6.7); Neutrophils Percent Auto 73.1 % (45.5-73.1); Platelet Count Result 211 k/mm3 (150-375); Red Blood Count 3.28 M/mm3 (4.6-6.20); Red Cell Distribution Width 11.2 % (11.5-14.5); White Blood Count 6.6 K/mm3 (4.5-10.0)
[2022-02-20 05:18] LABS: Anion Gap 4 mmol/L (8-16); Blood Urea Nitrogen 35 mg/dL (9-20); Calcium 8.8 mg/dL (8.4-10.2); Carbon Dioxide 27 mmol/L (22-30); Chloride 100 mmol/L (98-107); Estimated CRCL calculation 55 ml/min; Estimated Glomerular Filt Rate 46; Glucose 106 mg/dL (65-110); Potassium 4.2 mmol/L (3.4-5.0); Sodium 131 mmol/L (137-145)
--- NOTE | 2022-02-20 09:18 | PM.PNCARD ---
Progress Note: A&P Assessment and Plan (1) Chest pain: Code(s): R07.9 - Chest pain, unspecified Status: Acute Assessment and Plan: Atypical chest pain not suggestive of myocardial ischemia. He underwent a lexiscan stress test this morning that did not show any definite infarct or ischemia, EF 53%. Would check lipids to risk stratify for CAD and initiate statin if appropriate. His BP remains elevated. Will increase amlodipine to 10mg daily. Subjective Date/time seen: 02/20/22 09:18 Cardiology follow up for chest pain Feeling well this morning and offers no complaints. He denies any chest pain or shortness of breath. I am seeing him in the cardiac stress lab for his nuclear stress test. He did experience mild shortness of breath with this test. Review of Systems Constitutional: Constitutional: Reports lethargy Eyes: Eyes: Reports no additional eye complaints ENT: Reports system reviewed and no additional complaints, except as documented Cardiovascular: Cardiovascular: Reports as per HPI and Reports dyspnea on exertion Respiratory: Respiratory: Reports dyspnea on exertion Gastrointestinal: Gastrointestinal: Reports no additional gastrointestinal complaints Musculoskeletal: Musculoskeletal: Reports as per HPI and Reports back pain Integumentary/Breasts: Skin/Breast: Reports system reviewed and no additional complaints, except as docu Neurologic: Reports system reviewed and no additional complaints, except as documented Endocrine: Endocrine: Reports no additional endocrine complaints Hematologic/Lymphatic: Hematologic/Lymphatic: Reports no additional hematologic/lymphatic complaints Allergic/Immunologic: Allergic/Immunologic: Reports no additional allergic/immunologic complaints Exam Const: General: comfortable and no acute distress Other: Well-developed well-nourished white male resting comfortably on the stretcher in the cardiac stress lab HENMT: Mouth: Yes moist mucous membranes Eyes: Sclera: sclerae normal Neck: Neck: supple and no JVD Resp: Effort & Inspection: normal respiratory effort Auscultation: clear to auscultation bilaterally, no crackles, no rales and no wheezes Cardio: Rate: regular rate Rhythm: regular rhythm Heart sounds: S1 normal heart sound present, S2 normal heart sound present and no murmurs GI: Auscultation: normal bowel sounds Skin: General skin exam: normal color Neuro: Other: Alert and oriented x3 normal cognition Extrem: Other: Bilateral lower extremity edema right side slightly worse than left. R calf warm and erythematous Objective Data Vital Signs Vital Signs: Vital Signs - 24 hr 02/19/22 10:00 02/19/22 12:00 02/19/22 12:00 Temperature 36.6 C Pulse Rate 83 74 Respiratory Rate 16 Blood Pressure 180/94 H Pulse Oximetry 94 Oxygen Delivery Room Air 02/19/22 16:00 02/19/22 12:00 02/19/22 16:00 Temperature 36.7 C Pulse Rate 77 81 Respiratory Rate 20 Blood Pressure 163/99 H Pulse Oximetry 99 Oxygen Delivery Room Air 02/19/22 16:00 02/19/22 14:00 02/19/22 18:00 Temperature Pulse Rate 76 78 81 Respiratory Rate Blood Pressure Pulse Oximetry Oxygen Delivery 02/19/22 20:00 02/19/22 20:22 02/19/22 20:00 Temperature 36.4 C Pulse Rate 80 84 81 Respiratory Rate 20 Blood Pressure 178/90 H Pulse Oximetry 97 Oxygen Delivery 02/19/22 20:00 02/19/22 22:00 02/19/22 23:41 Temperature 36.2 C L Pulse Rate 81 76 66 Respiratory Rate 20 20 Blood Pressure 156/86 H Pulse Oximetry 97 100 Oxygen Delivery Room Air 02/20/22 00:00 02/20/22 00:00 02/20/22 03:53 Temperature 36.8 C Pulse Rate 61 61 62 Respiratory Rate 20 20 Blood Pressure 154/91 H Pulse Oximetry 100 100 Oxygen Delivery Room Air 02/20/22 04:00 02/20/22 02:00 02/20/22 04:00 Temperature Pulse Rate 62 60 64 Respiratory Rate 20 Blood Pressure Pulse Oximetry 100 [facility]
[2022-02-20] MEDS: amLODIPine BESYLATE 5 MG TABLET PO (10:49)
[2022-02-20] MEDS: ENOXAPARIN 40 MG/0.4 ML SYRINGE SUB-Q (10:49)
[2022-02-20] MEDS: POTASSIUM CHLORIDE 10 MEQ TABLET.ER PO ×2 (10:49→17:13)
[2022-02-20] MEDS: carvediloL 12.5 MG TABLET PO ×2 (10:49→22:00)
[2022-02-20] MEDS: FUROSEMIDE 40 MG TABLET PO (10:50)
[2022-02-20] MEDS: ASPIRIN 81 MG ENTERIC TABLET PO (10:51)
--- NOTE | 2022-02-20 12:18 | PM.IMPN ---
Progress Note: A&P Assessment and Plan (1) Chest pain: Code(s): R07.9 - Chest pain, unspecified Status: Acute Assessment and Plan: Stress test has been ordered. Cardiology following as well. A V/Q scan has been ordered as well (2) Uncontrolled hypertension: Code(s): I10 - Essential (primary) hypertension Status: Chronic Assessment and Plan: Resume home medications and monitor blood pressure. (3) Acute CHF (congestive heart failure): Qualifiers: Heart failure type: unspecified Qualified Code(s): I50.9 - Heart failure, unspecified Code(s): I50.9 - Heart failure, unspecified Status: Acute Assessment and Plan: Appreciate cardiology consult. (4) Bilateral knee pain: Code(s): M25.561 - Pain in right knee; M25.562 - Pain in left knee Status: Acute Assessment and Plan: Will get x-rays of bilateral knee. (5) Leg pain: Code(s): M79.606 - Pain in leg, unspecified Status: Acute Assessment and Plan: Bilateral DESIREE ordered Subjective Date/time seen: 02/20/22 12:18 Still has occasional leg pain. Also bilateral knee pain. No chest pain. Shortness of breath is somewhat better. Exam Narrative: General: alert and oriented Psych: appropriate mood nad affect Eyes: PERRLA Neck: Trachea midline, no new lesions Skin: no changes Lungs: CTA Cardiac: Normal S1,S2, no MGR ABD: soft, nd, nt, nbs Ext: no new lesions, no cce Vasc: Pulses intact Objective Data Vital Signs Vital Signs: Vital Signs - 24 hr 02/19/22 16:00 02/19/22 16:00 02/19/22 16:00 Temperature 98.1 F Pulse Rate 81 76 Respiratory Rate 20 Blood Pressure 163/99 H Pulse Oximetry 99 Oxygen Delivery Room Air 02/19/22 14:00 02/19/22 18:00 02/19/22 20:00 Temperature 97.6 F Pulse Rate 78 81 80 Respiratory Rate 20 Blood Pressure 178/90 H Pulse Oximetry 97 Oxygen Delivery 02/19/22 20:22 02/19/22 20:00 02/19/22 20:00 Temperature Pulse Rate 84 81 81 Respiratory Rate 20 Blood Pressure Pulse Oximetry 97 Oxygen Delivery Room Air 02/19/22 22:00 02/19/22 23:41 02/20/22 00:00 Temperature 97.1 F L Pulse Rate 76 66 61 Respiratory Rate 20 Blood Pressure 156/86 H Pulse Oximetry 100 Oxygen Delivery 02/20/22 00:00 02/20/22 03:53 02/20/22 04:00 Temperature 98.2 F Pulse Rate 61 62 62 Respiratory Rate 20 20 20 Blood Pressure 154/91 H Pulse Oximetry 100 100 100 Oxygen Delivery Room Air Room Air 02/20/22 02:00 02/20/22 04:00 02/20/22 06:00 Temperature Pulse Rate 60 64 64 Respiratory Rate Blood Pressure Pulse Oximetry Oxygen Delivery 02/20/22 08:00 02/20/22 08:00 02/20/22 08:00 Temperature 98.1 F Pulse Rate 66 67 Respiratory Rate 12 Blood Pressure 186/97 H Pulse Oximetry 98 Oxygen Delivery Room Air 02/20/22 10:00 02/20/22 10:49 Temperature Pulse Rate 75 75 Respiratory Rate Blood Pressure Pulse Oximetry Oxygen Delivery Intake/Output Intake/Output: Intake & Output 02/17/22 02/18/22 02/19/22 02/20/22 23:59 23:59 23:59 23:59 Intake Total 480 Output Total 0 Balance 480 Meds/Results Medications: Active Medications Generic Name Dose Route Start Last Admin Trade Name Javon PRN Reason Stop Dose Admin Amlodipine Besylate 5 mg 02/20/22 09:00 02/20/22 10:49 Amlodipine Besylate 5 Mg Tablet PO 5 mg DAILY CE Administration Aspirin 81 mg 02/20/22 09:00 02/20/22 10:51 Aspirin 81 Mg Enteric Tablet PO 81 mg QAM CE Administration Carvedilol 12.5 mg 02/20/22 09:00 02/20/22 10:49 Carvedilol 12.5 Mg Tablet PO 12.5 mg Q12HR CE Administration Enoxaparin Sodium 40 mg 02/20/22 09:00 02/20/22 10:49 Enoxaparin 40 Mg/0.4 Ml Syringe SUB-Q 40 mg DAILY CE Administration Furosemide 40 mg 02/20/22 09:00 02/20/22 10:50 Furosemide 40 Mg Tablet PO 40 mg DAILY CE Adminis
[2022-02-21] VITALS (15 sets, daily range): BP systolic 139–163; BP diastolic 83–98; PULSE 56–75; RESP 12–20; TEMP 36.3–36.6; O2SAT 96–100
--- NOTE | 2022-02-21 08:55 | PM.IMPN ---
Progress Note: A&P Assessment and Plan (1) Chest pain: Code(s): R07.9 - Chest pain, unspecified Status: Acute Assessment and Plan: Stress test has been ordered. Cardiology following as well. A V/Q scan has been ordered as well (2) Uncontrolled hypertension: Code(s): I10 - Essential (primary) hypertension Status: Chronic Assessment and Plan: Resume home medications and monitor blood pressure. (3) Acute CHF (congestive heart failure): Qualifiers: Heart failure type: unspecified Qualified Code(s): I50.9 - Heart failure, unspecified Code(s): I50.9 - Heart failure, unspecified Status: Acute Assessment and Plan: Appreciate cardiology consult. (4) Bilateral knee pain: Code(s): M25.561 - Pain in right knee; M25.562 - Pain in left knee Status: Acute Assessment and Plan: Will get x-rays of bilateral knee. (5) Leg pain: Code(s): M79.606 - Pain in leg, unspecified Status: Acute Assessment and Plan: Bilateral DESIREE ordered Subjective Date/time seen: 02/21/22 08:55 Exam Narrative: General: alert and oriented Psych: appropriate mood nad affect Eyes: PERRLA Neck: Trachea midline, no new lesions Skin: no changes Lungs: CTA Cardiac: Normal S1,S2, no MGR ABD: soft, nd, nt, nbs Ext: no new lesions, no cce Vasc: Pulses intact Objective Data Vital Signs Vital Signs: Vital Signs - 24 hr 02/20/22 10:00 02/20/22 10:49 02/20/22 12:00 Temperature 98.2 F Pulse Rate 75 75 77 Respiratory Rate 16 Blood Pressure 183/116 H Pulse Oximetry 98 Oxygen Delivery 02/20/22 12:00 02/20/22 12:00 02/20/22 14:00 Temperature Pulse Rate 80 80 Respiratory Rate Blood Pressure Pulse Oximetry Oxygen Delivery Room Air 02/20/22 16:00 02/20/22 16:00 02/20/22 16:00 Temperature 98 F Pulse Rate 67 65 Respiratory Rate 18 Blood Pressure 134/88 Pulse Oximetry 97 Oxygen Delivery Room Air 02/20/22 18:00 02/20/22 20:00 02/20/22 20:00 Temperature 97.6 F Pulse Rate 75 72 72 Respiratory Rate 16 16 Blood Pressure 158/90 H Pulse Oximetry 97 97 Oxygen Delivery Room Air 02/20/22 22:00 02/20/22 20:00 02/20/22 22:00 Temperature Pulse Rate 74 76 73 Respiratory Rate Blood Pressure Pulse Oximetry Oxygen Delivery 02/20/22 23:43 02/21/22 00:00 02/21/22 00:00 Temperature 97.2 F L Pulse Rate 66 62 62 Respiratory Rate 20 20 Blood Pressure 148/83 H Pulse Oximetry 96 96 Oxygen Delivery Room Air 02/21/22 03:56 02/21/22 02:00 02/21/22 04:00 Temperature 97.4 F L Pulse Rate 61 58 L 59 L Respiratory Rate 18 Blood Pressure 152/83 H Pulse Oximetry 100 Oxygen Delivery 02/21/22 04:00 02/21/22 06:00 Temperature Pulse Rate 59 L 56 L Respiratory Rate 18 Blood Pressure Pulse Oximetry 100 Oxygen Delivery Room Air Intake/Output Intake/Output: Intake & Output 02/18/22 02/19/22 02/20/22 02/21/22 23:59 23:59 23:59 23:59 Intake Total 480 240 450 Output Total 0 600 Balance 480 -360 450 Meds/Results Medications: Active Medications Generic Name Dose Route Start Last Admin Trade Name Freq PRN Reason Stop Dose Admin Amlodipine Besylate 10 mg 02/21/22 09:00 Amlodipine Besylate 5 Mg Tablet PO DAILY [facility] Aspirin 81 mg 02/20/22 09:00 02/20/22 10:51 Aspirin 81 Mg Enteric Tablet PO 81 mg QAM CE Administration Carvedilol 12.5 mg 02/20/22 09:00 02/20/22 22:00 Carvedilol 12.5 Mg Tablet PO 12.5 mg Q12HR CE Administration Enoxaparin Sodium 40 mg 02/20/22 09:00 02/20/22 10:49 Enoxaparin 40 Mg/0.4 Ml Syringe SUB-Q 40 mg DAILY CE Administration Furosemide 40 mg 02/20/22 09:00 02/20/22 10:50 Furosemide 40 Mg Tablet PO 40 mg DAILY CE Administration Potassium Chloride 10 meq 02/19/22 17:00 02/20/22 17:13 Potassium Chloride 10 Meq Tablet.Er PO 10 meq BID SC
[2022-02-21] MEDS: amLODIPine BESYLATE 5 MG TABLET 10 MG PO (10:06)
[2022-02-21] MEDS: POTASSIUM CHLORIDE 10 MEQ TABLET.ER PO ×2 (10:06→18:38)
[2022-02-21] MEDS: carvediloL 12.5 MG TABLET PO ×2 (10:07→21:19)
[2022-02-21] MEDS: FUROSEMIDE 40 MG TABLET PO (10:07)
[2022-02-21] MEDS: ENOXAPARIN 40 MG/0.4 ML SYRINGE SUB-Q (10:07)
[2022-02-21] MEDS: ASPIRIN 81 MG ENTERIC TABLET PO (10:10)
--- NOTE | 2022-02-21 10:58 | PM.IMPN ---
Progress Note: A&P Assessment and Plan (1) Chest pain: Code(s): R07.9 - Chest pain, unspecified Status: Acute Assessment and Plan: Stress test has been ordered, Lexiscan is unremarkable Cardiology following as well. A V/Q scan has been ordered as well, not done yet Patient has acid reflux, start Protonix 40 mg daily p.o.. (2) Uncontrolled hypertension: Code(s): I10 - Essential (primary) hypertension Status: Chronic Assessment and Plan: Resume home medications and monitor blood pressure. Controlled (3) Acute CHF (congestive heart failure): Qualifiers: Heart failure type: unspecified Qualified Code(s): I50.9 - Heart failure, unspecified Code(s): I50.9 - Heart failure, unspecified Status: Acute Assessment and Plan: Appreciate cardiology consult. (4) Bilateral knee pain: Code(s): M25.561 - Pain in right knee; M25.562 - Pain in left knee Status: Acute Assessment and Plan: Will get x-rays of bilateral knee. (5) Leg pain: Code(s): M79.606 - Pain in leg, unspecified Status: Acute Assessment and Plan: Venous Doppler shows no DVT Subjective Date/time seen: 02/21/22 10:58 I saw and examined patient today. Patient does not have even overnight. Patient denies chest pain today. Patient has acid reflux. Patient states he has been having acid reflux following time Review of Systems Review of Systems: ROS negative except above Exam Narrative: General: alert and oriented Psych: appropriate mood nad affect Eyes: PERRLA Neck: Trachea midline, no new lesions Skin: no changes Lungs: CTA Cardiac: Normal S1,S2, no MGR ABD: soft, nd, nt, nbs Ext: no new lesions, no cce Vasc: Pulses intact Objective Data Vital Signs Vital Signs: Vital Signs - 24 hr 02/20/22 12:00 02/20/22 12:00 02/20/22 12:00 Temperature 98.2 F Pulse Rate 77 80 Respiratory Rate 16 Blood Pressure 183/116 H Pulse Oximetry 98 Oxygen Delivery Room Air 02/20/22 14:00 02/20/22 16:00 02/20/22 16:00 Temperature Pulse Rate 80 67 Respiratory Rate Blood Pressure Pulse Oximetry Oxygen Delivery Room Air 02/20/22 16:00 02/20/22 18:00 02/20/22 20:00 Temperature 98 F 97.6 F Pulse Rate 65 75 72 Respiratory Rate 18 16 Blood Pressure 134/88 158/90 H Pulse Oximetry 97 97 Oxygen Delivery 02/20/22 20:00 02/20/22 22:00 02/20/22 20:00 Temperature Pulse Rate 72 74 76 Respiratory Rate 16 Blood Pressure Pulse Oximetry 97 Oxygen Delivery Room Air 02/20/22 22:00 02/20/22 23:43 02/21/22 00:00 Temperature 97.2 F L Pulse Rate 73 66 62 Respiratory Rate 20 Blood Pressure 148/83 H Pulse Oximetry 96 Oxygen Delivery 02/21/22 00:00 02/21/22 03:56 02/21/22 02:00 Temperature 97.4 F L Pulse Rate 62 61 58 L Respiratory Rate 20 18 Blood Pressure 152/83 H Pulse Oximetry 96 100 Oxygen Delivery Room Air 02/21/22 04:00 02/21/22 04:00 02/21/22 06:00 Temperature Pulse Rate 59 L 59 L 56 L Respiratory Rate 18 Blood Pressure Pulse Oximetry 100 Oxygen Delivery Room Air 02/21/22 08:00 Temperature 97.5 F L Pulse Rate 64 Respiratory Rate 12 Blood Pressure 163/96 H Pulse Oximetry 100 Oxygen Delivery Intake/Output Intake/Output: Intake & Output 02/18/22 02/19/22 02/20/22 02/21/22 23:59 23:59 23:59 23:59 Intake Total 480 240 450 Output Total 0 600 Balance 480 -360 450 Meds/Results Medications: Active Medications Generic Name Dose Route Start Last Admin Trade Name Javon PRN Reason Stop Dose Admin Amlodipine Besylate 10 mg 02/21/22 09:00 02/21/22 10:06 Amlodipine Besylate 5 Mg Tablet PO 10 mg DAILY CE Administration Aspirin 81 mg 02/20/22 09:00 02/21/22 10:10 Aspirin 81 Mg Enteric Tablet PO 81 mg QAM CE Administration Carvedilol 12.5 mg 02/20/22 09:00 02/21/22 10:07 Carvedilol 12.5 Mg Tablet PO 1
[2022-02-22] VITALS (8 sets, daily range): BP systolic 159–180; BP diastolic 100–105; PULSE 56–81; RESP 16–20; TEMP 36.4; O2SAT 98–100
[2022-02-22] MEDS: FUROSEMIDE 40 MG TABLET PO (08:27)
[2022-02-22] MEDS: POTASSIUM CHLORIDE 10 MEQ TABLET.ER PO (08:27)
[2022-02-22] MEDS: ENOXAPARIN 40 MG/0.4 ML SYRINGE SUB-Q (08:27)
[2022-02-22] MEDS: carvediloL 12.5 MG TABLET PO (08:27)
[2022-02-22] MEDS: amLODIPine BESYLATE 5 MG TABLET 10 MG PO (08:27)
[2022-02-22] MEDS: ASPIRIN 81 MG ENTERIC TABLET PO (08:31)
--- NOTE | 2022-02-22 09:34 | PM.DS ---
DS: Admitting Diagnosis Discharge Date 02/22/22 Admitting Diagnosis Chest pain Accuse diastolic dysfunction Venous stasis bilateral lower extremities DS: Discharge Diagnosis Discharge Diagnosis (1) Chest pain: Code(s): R07.9 - Chest pain, unspecified Status: Acute (2) Leg pain: Code(s): M79.606 - Pain in leg, unspecified Status: Acute (3) Uncontrolled hypertension: Code(s): I10 - Essential (primary) hypertension Status: Chronic (4) Acute renal failure: Code(s): N17.9 - Acute kidney failure, unspecified Status: Acute DS: Summary Hospital Course Reason for hospitalization: chest pain Hospital Course: Patient presents emergency department from home for chest pain.? Patient has been having intermittent chest pain one day.? The pain is located the midsternal chest does not radiate described as sharp and stabbing.? Is been associated with shortness of breath.? 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 Patient does note swelling and pain to his right lower leg that he has had he states for some time During hospitalization, patient received Lasix, increase amlodipine to 10 mg daily p.o., carvedilol 12.5 mg b.i.d. p.o. V/Q scan is negative for PE. Venous Doppler is negative of DVT. now patient has no chest pain or dyspnea appears. Patient is hemodynamically stable. Patient will be discharged home today, advised patient to follow with primary care doctor in 1 week and used car make ready mechanic by calling office for scheduled follow-up appointment Time Spent with Patient Time attestation: Total time spent providing and/or coordinating discharge services: 40mins Exam Narrative: GENERAL: Pleasant, in no acute distress. Well-nourished. - EYES: EOMI. Anicteric. - HENT: Moist mucous membranes. - LUNGS: Clear to auscultation bilaterally, no wheezing, rhonchi, or rales. - CARDIOVASCULAR: Regular rate and rhythm. No murmur. No JVD. - ABDOMEN: Soft, non-tender and non-distended. No palpable masses. - EXTREMITIES: No edema. Peripheral pulses 2+. Non-tender. - NEUROLOGIC: No focal neurological deficits. CN II-XII grossly intact. - PSYCHIATRIC: Awake, Alert and oriented x 3. Appropriate mood and affect. - SKIN: No rashes or lesions. Warm. - LYMPH: No cervical lymphadenopathy. Discharge Plan Discharge Attending physician on discharge: Clover Wong Consulting providers: Bk Ladd Discharging Clinician: Clover Wong Patient Disposition: Home, Self-Care Activity: as tolerated Diet: heart healthy Patient Instructions: Antibiotic Form Stand Alone Forms: General Discharge Information Follow-up/Referrals: Bk Ladd MD [Physician] - Jocelyn,Med Pappas M.D. [Primary Care Provider] - Discharge Medications: New amlodipine [Norvasc] 5 mg Tablet 10 mg PO DAILY 30 Days Qty: 30 1RF hydrocodone-acetaminophen 5-325 mg Tablet 1 tablet PO Q6H PRN (Reason: Pain Rated 4-6) Qty: 20 0RF carvedilol [Coreg] 12.5 mg Tablet 12.5 mg PO Q12HR 30 Days Qty: 60 0RF Continued potassium chloride 10 mEq tablet extended release 10 meq PO BID furosemide 40 mg Tablet 40 mg PO DAILY Qty: 30 1RF aspirin 81 mg Tablet,Delayed Release (Dr/Ec) 81 mg PO QAM Qty: 30 1RF Discontinued amlodipine [Norvasc] 2.5 mg tablet 2.5 mg PO DAILY Qty: 30 1RF carvedilol [Coreg] 6.25 mg Tablet 6.25 mg PO Q12HR Qty: 60 1RF Date of admission: 02/19/22 03:51 Primary Care Provider: Jocelyn,Med Pappas Admitting Provider: Patric Rodriguez Attending physician on admission: Patric Rodriguez Condition: Guarded Prognosis
== END 2022-02-22 13:50 | disposition home or self-care (01) ==
LOC: ANHED 03:25 → ANHIMU 04:27
PROVIDERS: Admitting Provider Chiropractor; Emergency Provider Emergency Medicine; PCP Family Medicine; Visit Provider Hospitalist
DX: R07.9 Chest pain, unspecified (principal); I11.0 Hypertensive heart disease with heart failure; I50.9 Heart failure, unspecified; Z20.822 Contact with and (suspected) exposure to COVID-19; R94.31 Abnormal electrocardiogram [ECG] [EKG]; R06.09 Other forms of dyspnea; F41.9 Anxiety disorder, unspecified; H81.10 Benign paroxysmal vertigo, unspecified ear; N17.9 Acute kidney failure, unspecified; M25.561 Pain in right knee; M79.606 Pain in leg, unspecified; Z87.891 Personal history of nicotine dependence; Z79.82 Long term (current) use of aspirin; Z79.899 Other long term (current) drug therapy
CPT/HCPCS: 36415; 71045; 73560; 78452; 78580; 80048; 80053; 83690; 83880; 84484; 85025; 85380; 85610; 85730; 87637; 93005; 93017; 93923; 93971; 96372; 97165; 97535; 99285; A9270; A9502; A9540; G0378; G0379; J1650; J2785

== ENCOUNTER 2022-07-21 15:37 | Emergency (ER) | payer OTHER, SELFPAY ==
[2022-07-21 15:42] VITALS: BP 192/107; PULSE 84; RESP 22; TEMP 37.1; O2SAT 99
--- NOTE | 2022-07-21 16:01 | ED.SKABFB ---
HPI - Skin/Abscess/Foreign Bdy General Chief complaint: Skin/Abscess/Foreign Body Stated complaint: Rash all over Time Seen by Provider: 07/21/22 16:02 Source: patient Mode of arrival: ambulatory Limitations: no limitations History of Present Illness HPI narrative: 51-year-old male with hx ME and CHF presented for complaint of rash to body surface for about 1 week. Endorses itching. Denies pain or drainage to the sites. Denies any other family members with similar symptoms. Denies changes to lotion, soap, detergent etc.. Denies lip/tongue/throat itching or swelling. Rash is not on face. Has not taken anything for the rash. Noted to have elevated BP on arrival, states he did not take his BP meds today. Denies cp, palpitations, sob, wheezing, dizziness, vision changes, n/v/d/f/c. Related Data Home Medications Medication Instructions Recorded Confirmed potassium chloride 10 mEq 10 meq PO BID 09/06/21 07/21/22 tablet,extended release Allergies Allergy/AdvReac Type Severity Reaction Status Date / Time No Known Allergies Allergy Verified 07/21/22 15:56 Review of Systems Review of Systems: CONSTITUTIONAL: Denies body aches, fever, chills, or sweats. EYES: Denies visual changes, redness, or discharge. ENT: Denies rhinorrhea, congestion CARDIOVASCULAR: Denies chest pain, palpitations, or edema. RESPIRATORY: Denies cough or dyspnea. GASTROINTESTINAL: Denies abdominal pain, nausea, vomiting, or diarrhea. SKIN: per HPI MUSCULOSKELETAL: Denies back pain, joint pain, or myalgia. NEUROLOGIC: Denies headache, numbness, tingling, or weakness. [facility] Past Medical History Medical History (Updated 07/21/22 @ 17:08 by Ember Riley APRN) Acute CHF (congestive heart failure) Anxiety Braun's esophagus GERD (gastroesophageal reflux disease) (12/13/11) HTN (hypertension) Non-ST elevation (NSTEMI) myocardial infarction Positional vertigo Pulmonary hypertension Surgical History Surgical History No significant past surgical history Family History Family History Mother Hypertension Father Hypertension Heart attack Social History Social History Smoking packs per day: 1 Smoking cigarettes per day: 20.0 Years smoked: 15 Smoking pack-years: 15.00 Smoking status: Former smoker Tobacco type: cigarettes Second hand tobacco smoke exposure: Yes Alcohol intake: never Substance use: never Lack of Transportation: No Lack of Food: Never True Current Housing: I Have Housing Concerned About Future Housing: No Difficulty Paying Gas/Electric Bills: No Difficulty Paying for Meds: No Currently Unemployed: No Education: Decline to Answer Difficulty w/ Childcare or Family Care: No Gender identity (if verbalized by the patient): Male Spiritual care concerns: No Agree to blood products: Yes Comments At time of signature, I have reviewed and agree with nursing past medical, surgical, social and family history unless otherwise noted. Please see nursing chart for further information. There is no relevant family history pertinent to the presenting complaint Exam Narrative: GENERAL: Well-appearing HEAD: Normocephalic, atraumatic. EYES: conjunctivae clear, and EOMI. ENT: Mucous membranes moist. Oropharynx without edema, erythema or lesions. NECK: Supple. No lymphadenopathy CHEST: Clear to auscultation. HEART: Regular rate and rhythm. SKIN: Warm, moist. Diffuse erythematous raised maculopapular rash noted to most of body surface, minimal lesions to the right back and right leg, and spares face. EXT: Bilateral ankles erythematous with 2+ edema, appears to have dried weeping to ankles/socks NEURO: Alert and oriented x3. Course Course Emergency Course: Patient is aware of diagnosis, understands a
[2022-07-21 16:08] VITALS: BP 210/108
[2022-07-21] MEDS: methylPREDNISolone SOD SUCC 125 MG VIAL IM (16:29)
[2022-07-21] MEDS: diphenhydrAMINE HCl CAP 25 MG CAPSULE 50 MG PO (16:29)
== END 2022-07-21 16:40 | disposition left against medical advice (07) ==
PROVIDERS: Emergency Provider Nurse Practitioner Family; PCP Family Medicine
DX: L30.9 Dermatitis, unspecified (principal); I11.0 Hypertensive heart disease with heart failure; I50.9 Heart failure, unspecified; Z87.891 Personal history of nicotine dependence; K22.70 Barrett's esophagus without dysplasia; K21.9 Gastro-esophageal reflux disease without esophagitis; I25.2 Old myocardial infarction; I27.20 Pulmonary hypertension, unspecified
CPT/HCPCS: 96372; 99213; A9270; G0463; J2930

== ENCOUNTER 2022-09-23 21:39 | Emergency (ER) | payer OTHER, SELFPAY ==
[2022-09-23 21:40] VITALS: BP 167/111; PULSE 78; RESP 18; TEMP 37.3; O2SAT 98
--- NOTE | 2022-09-23 21:46 | ED.LOWEXIN ---
HPI - Extremity Injury (Lower) General Chief Complaint: Extremity Problem,Nontraumatic Stated Complaint: Left Leg Pain Source: patient Mode of arrival: wheelchair Limitations: no limitations History of Present Illness HPI Narrative: patient is a 51-year-old male with left sciatica from the back all the way down below the knee of shooting pain. He is in the process of multiple workups for this lower back pain and left knee pain with his primary doctor at this time. He is here for acute pain control. Onset (ago): day(s) (2) Injury: Left: knee Severity: severe Severity scale (1-10): 9 Relieving factors: nothing Exacerbating factors: weight bearing, movement and palpation Associated symptoms: numbness, tingling and able to partially bear weight Other symptoms: none Related Data Home Medications Medication Instructions Recorded Confirmed potassium chloride 10 mEq 10 meq PO BID 09/06/21 09/23/22 tablet,extended release losartan 100 mg tablet 100 mg PO DAILY 09/23/22 09/23/22 omeprazole 20 mg capsule,delayed 20 mg PO DAILY 09/23/22 09/23/22 release Allergies Allergy/AdvReac Type Severity Reaction Status Date / Time No Known Allergies Allergy Verified 07/21/22 15:56 Review of Systems Review of Systems: All systems reviewed & are unremarkable except as noted in HPI and below Constitutional: Constitutional: Reports no additional constitutional complaints Eyes: Eyes: Reports no additional eye complaints ENT: Reports system reviewed and no additional complaints, except as documented Cardiovascular: Cardiovascular: Reports no additional cardiovascular complaints Respiratory: Respiratory: Reports no additional respiratory complaints Gastrointestinal: Gastrointestinal: Reports no additional gastrointestinal complaints Genitourinary: Genitourinary: Reports no additional male genitourinary complaints Musculoskeletal: Musculoskeletal: Reports no additional musculoskeletal complaints Integumentary/Breasts: Skin/Breast: Reports system reviewed and no additional complaints, except as docu Neurologic: Reports system reviewed and no additional complaints, except as documented Psychiatric: Psychiatric: Reports no additional psychiatric complaints Endocrine: Endocrine: Reports no additional endocrine complaints Hematologic/Lymphatic: Hematologic/Lymphatic: Reports no additional hematologic/lymphatic complaints Allergic/Immunologic: Allergic/Immunologic: Reports no additional allergic/immunologic complaints PMFSH Past Medical History Medical History Acute CHF (congestive heart failure) Anxiety Braun's esophagus GERD (gastroesophageal reflux disease) (12/13/11) HTN (hypertension) Non-ST elevation (NSTEMI) myocardial infarction Positional vertigo Pulmonary hypertension Surgical History Surgical History No significant past surgical history Family History Family History Mother Hypertension Father Hypertension Heart attack Social History Social History Smoking packs per day: 1 Smoking cigarettes per day: 20.0 Years smoked: 15 Smoking pack-years: 15.00 Smoking status: Former smoker Tobacco type: cigarettes Second hand tobacco smoke exposure: Yes Alcohol intake: never Substance use: never Lack of Transportation: No Lack of Food: Never True Current Housing: I Have Housing Concerned About Future Housing: No Difficulty Paying Gas/Electric Bills: No Difficulty Paying for Meds: No Currently Unemployed: No Education: Decline to Answer Difficulty w/ Childcare or Family Care: No Gender identity (if verbalized by the patient): Male Spiritual care concerns: No Agree to blood products: Yes Exam Const: General: healthy appearing Nutritional Bud
[2022-09-23] MEDS: methylPREDNISolone SOD SUCC 125 MG VIAL IM (22:28)
[2022-09-23] MEDS: oxyCODONE/ACETAMINOPHEN (*CRX) 10-325 MG TABLET 1 TAB PO (22:30)
[2022-09-23 22:49] VITALS: BP 145/87; PULSE 85; RESP 18; TEMP 36.6; O2SAT 99
== END 2022-09-23 22:55 | disposition home or self-care (01) ==
PROVIDERS: Emergency Provider Emergency Medicine; PCP Family Medicine
DX: M54.30 Sciatica, unspecified side (principal); I11.0 Hypertensive heart disease with heart failure; I50.9 Heart failure, unspecified; I25.2 Old myocardial infarction; Z87.891 Personal history of nicotine dependence
CPT/HCPCS: 96372; 99283; A9270; J2930

== ENCOUNTER 2023-01-18 15:01 | Outpatient (CLI) | payer OTHER, SELFPAY ==
--- NOTE | 2023-01-18 15:16 | ECG_ITS ---
Measurements Intervals [place] Rate: 83 P: 147 AK: 174 QRS: 64 QRSD: 112 T: 115 QT: 397 QTc: 469 Interpretive Statements SINUS RHYTHM POSSIBLE LEFT ATRIAL ENLARGEMENT [-0.1mV P-WAVE IN V1/V2] CANNOT RULE OUT sEPTAL MYOCARDIAL INFARCTION , OF INDETERMINATE AGE [40+ ms Q WAVE IN V1/V2] ABNORMAL ECG COMPARED TO ECG 02/19/2022 02:24:43 NO SIGNIFICANT CHANGE Electronically Signed On 01-19-2023 13:45:57 [employer] by Rhys Jacobs M.D.
== END 2023-01-18 15:02 | disposition home or self-care (01) ==
LOC: CHSCARD 15:05
PROVIDERS: PCP Family Medicine
DX: Z01.818 Encounter for other preprocedural examination (principal); R94.31 Abnormal electrocardiogram [ECG] [EKG]
CPT/HCPCS: 93005

== ENCOUNTER 2023-02-06 10:27 | Outpatient (RCR) | payer OTHER, SELFPAY ==
--- NOTE | 2023-02-06 10:59 | OPREHPOC ---
Outpatient Therapy Plan of Care This is a Multidisciplinary Plan of Care that may contain components documented by all disciplines (PT, OT, and ST.) PT Problem 1 PT Problem #1 Knowledge Deficit PT Goal 1 Goal 1. independent and compliant with HEP Target Visit 6 PT Problem 2 PT Problem #2 Pain PT Goal 1 Goal 1. decrease pain at worst to 2/10 in the L knee with all activities to improve his quality of life . Target Visit 12 PT Problem 3 PT Problem #3 Impaired Range of Motion PT Goal 1 Goal 1. improve L knee active rom to 0-120 degrees or better Target Visit 12 PT Problem 4 PT Problem #4 Impaired Strength PT Goal 1 Goal 1. 4+/5 or better L hip flex 2. 5/5 L knee strength Target Visit 12 PT Problem 5 PT Problem #5 Impaired Functional Mobil PT Goal 1 Goal 1. patient to ambulate with equal stance time and no AD needs. 2. patient to ambulate up and down stesp reciprocally 3. LEFS to display less than 30% functional defictis 4. patient to complete 6 minute walk test without rest for 1000ft or more Target Visit 12
--- NOTE | 2023-02-06 11:00 | PTOPEVAL1 ---
Assessment and note entered by JT File, PT Evaluation Information Assessment Status Evaluation Diagnosis L TKA Onset 01/23/23 Subjective Information patient reports his L knee was full of arthritis and he has TKA on 01/23/23. he reports he has been doing exercises on his own at home. he reports he is no longer using the walker for ambulation. he reports he does not own a cane. he reports it has been pretty painful. he reports he has been trying to relax and ice as much as possible. he reports he has been sleeping in a bed and a recliner. he reports the R knee is trashed as well. 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 Reported Pain Level Pain Score 5: Self Report Assessment PT Clinical Summary mr. ortega is a 52 yo man who presents to skilled PT services for evaluation and treatment s/p L TKA. he presents with mm weakness, decreased rom, pain, abnormal gait, and increased jt line circumference. he would benefit from continued skilled PT to address his objective/functional deficits and return to prior level walking, standing, lifting, and home/work activities to improve his quality of life. Plan of Care Interventions Electrical Stimulation,Gait Training,Hot Pack/Cold Pack,Intermittent Compression,Neuro Re-education, Patient/Caregiver Educati,Therapeutic Activities, Therapeutic Exercise PT Services Indicated Yes Treatment Frequency and 3x weekly for 12 visits Duration These treatments will address the objective and functional deficits as defined above. The patient will be advanced safely and appropriately in order for the patient to progress towards his/her prior level of function. Additional exercises will be introduced and as well as a comprehensive home exercise program upon discharge, if needed, ?to ensure carryover of functional gains achieved in the clinic. This treatment plan has been reviewed and agreement upon by the patient.
--- NOTE | 2023-03-18 16:01 | PCPTNOTE ---
pt cancelled no known reason
== END 2023-03-20 20:00 | disposition home or self-care (01) ==
LOC: CHSPT 10:27
DX: Z47.1 Aftercare following joint replacement surgery (principal); Z96.652 Presence of left artificial knee joint
CPT/HCPCS: 97014; 97016; 97110; 97161; G0283

== ENCOUNTER 2023-02-18 19:32 | Emergency (ER) | payer OTHER, SELFPAY ==
--- NOTE | ~2023-02-18 | XR_ITS ---
EXAM: XR knee LT 3V DATE: 02/18/2023 20:02 HISTORY: s/p lt knee replacement 3 wks ago, felt pop getting up . COMPARISON: None available. FINDINGS: Normal mineralization. Uncomplicated left knee total arthroplasty. No fracture or dislocat ion. No lytic or blastic lesion. Joint spaces are maintained. No erosion or periosteal change. Soft t issues within normal limits. Large left knee joint effusion. Anterior soft tissue swelling. IMPRESSION: No acute osseous finding in the left knee. No radiographic evidence of hardware related complication. Large left knee joint effusion. Reviewed, dictated and finalized at location K. OR [employer]
[2023-02-18 19:32] VITALS: BP 191/122; PULSE 84; RESP 16; TEMP 36.2; O2SAT 99
[2023-02-18] MEDS: KETOROLAC (*BKC) 60 MG/2 ML VIAL IM (19:51)
--- NOTE | 2023-02-18 20:49 | ED.LOWEXIN ---
HPI - Extremity Injury (Lower) General Chief Complaint: Extremity Injury, Lower Stated Complaint: lt knee pain Source: patient Mode of arrival: ambulatory Limitations: no limitations History of Present Illness HPI Narrative: Patient is a 52-year-old male with a left knee replacement in the past week. He has been doing PT. he got up out of a chair and heard a big pop sound and had intense pain at that moment. He came to the ER for further evaluation. This happened last night. MD complaint: knee injury Onset (ago): day(s) (1) Injury: Left: knee Type of Injury: other ( Getting out of a chair on a left knee replacement) Place: home Severity: moderate Severity scale (1-10): 5 Relieving factors: immobilization Exacerbating factors: weight bearing and movement Context: walking Associated symptoms: snap/pop sensation Other symptoms: none Treatments prior to arrival: other ( Percocet) Related Data Home Medications Medication Instructions Recorded Confirmed potassium chloride 10 mEq 10 meq PO BID 09/06/21 02/18/23 tablet,extended release losartan 100 mg tablet 100 mg PO DAILY 09/23/22 02/18/23 omeprazole 20 mg capsule,delayed 20 mg PO DAILY 09/23/22 02/18/23 release amlodipine 5 mg tablet 5 mg PO DAILY 02/18/23 02/18/23 meloxicam 7.5 mg tablet 7.5 mg PO DAILY 02/18/23 02/18/23 oxycodone-acetaminophen 5 mg-325 1 tablet PO PRN 02/18/23 02/18/23 mg tablet Allergies Allergy/AdvReac Type Severity Reaction Status Date / Time No Known Allergies Allergy Verified 07/21/22 15:56 Review of Systems Review of Systems: All systems reviewed & are unremarkable except as noted in HPI and below Constitutional: Constitutional: Reports no additional constitutional complaints Eyes: Eyes: Reports no additional eye complaints ENT: Reports system reviewed and no additional complaints, except as documented Cardiovascular: Cardiovascular: Reports no additional cardiovascular complaints Respiratory: Respiratory: Reports no additional respiratory complaints Gastrointestinal: Gastrointestinal: Reports no additional gastrointestinal complaints Genitourinary: Genitourinary: Reports no additional male genitourinary complaints Musculoskeletal: Musculoskeletal: Reports no additional musculoskeletal complaints Integumentary/Breasts: Skin/Breast: Reports system reviewed and no additional complaints, except as docu Neurologic: Reports system reviewed and no additional complaints, except as documented Psychiatric: Psychiatric: Reports no additional psychiatric complaints Endocrine: Endocrine: Reports no additional endocrine complaints Hematologic/Lymphatic: Hematologic/Lymphatic: Reports no additional hematologic/lymphatic complaints Allergic/Immunologic: Allergic/Immunologic: Reports no additional allergic/immunologic complaints PMFSH Past Medical History Medical History Acute CHF (congestive heart failure) Anxiety Braun's esophagus GERD (gastroesophageal reflux disease) (12/13/11) HTN (hypertension) Non-ST elevation (NSTEMI) myocardial infarction Positional vertigo Pulmonary hypertension Surgical History Surgical History No significant past surgical history Family History Family History Mother Hypertension Father Hypertension Heart attack Social History Social History Smoking packs per day: 1 Smoking cigarettes per day: 20.0 Years smoked: 15 Smoking pack-years: 15.00 Smoking status: Former smoker Tobacco type: cigarettes Second hand tobacco smoke exposure: Yes Alcohol intake: never Substance use: never Lack of Transportation: No Lack of Food: Never True Current Housing: I Have Housing Concerned About Future Housing: No Difficulty Paying Gas/Electric Bills: No D
[2023-02-18 20:55] VITALS: BP 150/92; PULSE 92; RESP 18; TEMP 36.6; O2SAT 99
== END 2023-02-18 20:57 | disposition home or self-care (01) ==
PROVIDERS: Emergency Provider Emergency Medicine; PCP Family Medicine
DX: M25.562 Pain in left knee (principal); I11.0 Hypertensive heart disease with heart failure; I50.9 Heart failure, unspecified; I25.2 Old myocardial infarction; Z87.891 Personal history of nicotine dependence; Z79.899 Other long term (current) drug therapy; Z79.891 Long term (current) use of opiate analgesic; Z79.1 Long term (current) use of non-steroidal anti-inflammatories (NSAID)
CPT/HCPCS: 73562; 96372; 99283; J1885

== ENCOUNTER 2023-05-19 02:58 | Emergency (ER) | payer OTHER, SELFPAY ==
[2023-05-19 03:00] VITALS: BP 175/109; PULSE 85; RESP 18; TEMP 37.8; O2SAT 98
--- NOTE | 2023-05-19 03:17 | ED.SKABFB ---
HPI - Skin/Abscess/Foreign Bdy General Chief complaint: Skin/Abscess/Foreign Body Stated complaint: skin issue Time Seen by Provider: 05/19/23 03:09 Source: patient Mode of arrival: ambulatory Limitations: no limitations History of Present Illness HPI narrative: this is a 52-year-old male with a history of a recent knee replacement has a PICC line had been on antibiotics for last 4 weeks but today patient use some lotion and applied to his face and arms and developed a rash that is itchy urticarial with no shortness of breath no audible wheezing no fever chills no abdominal pain no nausea vomiting. complaint: rash Onset (ago): hour(s) Tetanus up to date: no Location: generalized Related Data Home Medications Medication Instructions Recorded Confirmed potassium chloride 10 mEq 10 meq PO BID 09/06/21 02/18/23 tablet,extended release losartan 100 mg tablet 100 mg PO DAILY 09/23/22 02/18/23 omeprazole 20 mg capsule,delayed 20 mg PO DAILY 09/23/22 02/18/23 release amlodipine 5 mg tablet 5 mg PO DAILY 02/18/23 02/18/23 meloxicam 7.5 mg tablet 7.5 mg PO DAILY 02/18/23 02/18/23 oxycodone-acetaminophen 5 mg-325 1 tablet PO PRN 02/18/23 02/18/23 mg tablet Allergies Allergy/AdvReac Type Severity Reaction Status Date / Time No Known Allergies Allergy Verified 05/19/23 03:16 Review of Systems Review of Systems: All systems reviewed & are unremarkable except as noted in HPI and below PMFSH Past Medical History Medical History Acute CHF (congestive heart failure) Anxiety Braun's esophagus GERD (gastroesophageal reflux disease) (12/13/11) HTN (hypertension) Non-ST elevation (NSTEMI) myocardial infarction Positional vertigo Pulmonary hypertension Surgical History Surgical History No significant past surgical history Family History Family History Mother Hypertension Father Hypertension Heart attack Social History Social History Smoking packs per day: 1 Smoking cigarettes per day: 20.0 Years smoked: 15 Smoking pack-years: 15.00 Smoking status: Former smoker Tobacco type: cigarettes Second hand tobacco smoke exposure: Yes Alcohol intake: never Substance use: never Lack of Transportation: No Lack of Food: Never True Current Housing: I Have Housing Concerned About Future Housing: No Difficulty Paying Gas/Electric Bills: No Difficulty Paying for Meds: No Currently Unemployed: No Education: Decline to Answer Difficulty w/ Childcare or Family Care: No Gender identity (if verbalized by the patient): Male Spiritual care concerns: No Agree to blood products: Yes Exam Const: General: healthy appearing, no acute distress and alert Nutritional Appearance: well nourished Orientation/consciousness: patient oriented x3 Limitations: no limitations Eyes: Conjunctivae: conjunctivae normal Pupils: Equal, round and reactive pupils present Neck: Neck: normal visual inspection and no lymphadenopathy Chest: Chest palpation & inspection: normal inspection of the chest Resp: Effort & Inspection: normal respiratory effort Auscultation: clear to auscultation bilaterally Cardio: Rate: regular rate Rhythm: regular rhythm GI: Auscultation: normal bowel sounds Skin: Other: Urticarial rash located behind his ears and temples his forearms bilaterally Neuro: General: patient oriented x3 and moves all extremities Extrem: General: normal to inspection Course Course Emergency Course: patient with allergic reaction rash that located on his scalp and forearms and administered a dose of 80mg IM Depo-Medrol and 25mg IM Benadryl. Vital Signs Vital signs: Vital Signs Temperature 37.8 C H 05/19/23 03:00 Pulse Rate 85 05/19/23 03:00
[2023-05-19] MEDS: methylPREDNISolone ACETATE 40 MG/ML VIAL 80 MG IM (03:22)
[2023-05-19] MEDS: diphenhydrAMINE HCl INJ 50 MG/ML VIAL 25 MG IM (03:22)
[2023-05-19 03:51] VITALS: BP 144/87; PULSE 71; RESP 18; O2SAT 94
== END 2023-05-19 03:53 | disposition home or self-care (01) ==
PROVIDERS: Emergency Provider Emergency Medicine; PCP Family Medicine
DX: L50.9 Urticaria, unspecified (principal); T78.40XA Allergy, unspecified, initial encounter; Z96.659 Presence of unspecified artificial knee joint; I50.9 Heart failure, unspecified; I11.0 Hypertensive heart disease with heart failure; I25.2 Old myocardial infarction; Z87.891 Personal history of nicotine dependence
CPT/HCPCS: 96372; 99284; J1030; J1200

== ENCOUNTER 2023-05-22 01:59 | Emergency (ER) | payer OTHER, SELFPAY ==
--- NOTE | 2023-05-22 02:05 | ED.GENADULT ---
HPI - General Adult General Stated complaint: PICC Line Issue Time Seen by Provider: 05/22/23 02:03 Source: patient Mode of arrival: ambulatory Limitations: no limitations History of Present Illness HPI narrative: patient is a 52-year-old male with a left arm PICC line for infected left knee postop knee replacement using daptomycin. His line was not flushing this evening so he came to the ER for further evaluation. Patient has heparin flush. Onset (ago): hour(s) (1) Location: left and upper extremity Radiation: non-radiation Pain Consistency: constant Relieving factors: none Exacerbating factors: none Associated symptoms: denies other symptoms Treatments prior to arrival: none Related Data Home Medications Medication Instructions Recorded Confirmed potassium chloride 10 mEq 10 meq PO BID 09/06/21 02/18/23 tablet,extended release losartan 100 mg tablet 100 mg PO DAILY 09/23/22 02/18/23 omeprazole 20 mg capsule,delayed 20 mg PO DAILY 09/23/22 02/18/23 release amlodipine 5 mg tablet 5 mg PO DAILY 02/18/23 02/18/23 meloxicam 7.5 mg tablet 7.5 mg PO DAILY 02/18/23 02/18/23 oxycodone-acetaminophen 5 mg-325 1 tablet PO PRN 02/18/23 02/18/23 mg tablet Allergies Allergy/AdvReac Type Severity Reaction Status Date / Time No Known Allergies Allergy Verified 05/19/23 03:16 Review of Systems Review of Systems: All systems reviewed & are unremarkable except as noted in HPI and below Constitutional: Constitutional: Reports no additional constitutional complaints Eyes: Eyes: Reports no additional eye complaints ENT: Reports system reviewed and no additional complaints, except as documented Cardiovascular: Cardiovascular: Reports no additional cardiovascular complaints Respiratory: Respiratory: Reports no additional respiratory complaints Gastrointestinal: Gastrointestinal: Reports no additional gastrointestinal complaints Genitourinary: Genitourinary: Reports no additional male genitourinary complaints Musculoskeletal: Musculoskeletal: Reports no additional musculoskeletal complaints Integumentary/Breasts: Skin/Breast: Reports system reviewed and no additional complaints, except as docu Neurologic: Reports system reviewed and no additional complaints, except as documented Psychiatric: Psychiatric: Reports no additional psychiatric complaints Endocrine: Endocrine: Reports no additional endocrine complaints Hematologic/Lymphatic: Hematologic/Lymphatic: Reports no additional hematologic/lymphatic complaints Allergic/Immunologic: Allergic/Immunologic: Reports no additional allergic/immunologic complaints PMFSH Past Medical History Medical History Acute CHF (congestive heart failure) Anxiety Braun's esophagus GERD (gastroesophageal reflux disease) (12/13/11) HTN (hypertension) Non-ST elevation (NSTEMI) myocardial infarction Positional vertigo Pulmonary hypertension Surgical History Surgical History No significant past surgical history Family History Family History Mother Hypertension Father Hypertension Heart attack Social History Social History Smoking packs per day: 1 Smoking cigarettes per day: 20.0 Years smoked: 15 Smoking pack-years: 15.00 Smoking status: Former smoker Tobacco type: cigarettes Second hand tobacco smoke exposure: Yes Alcohol intake: never Substance use: never Lack of Transportation: No Lack of Food: Never True Current Housing: I Have Housing Concerned About Future Housing: No Difficulty Paying Gas/Electric Bills: No Difficulty Paying for Meds: No Currently Unemployed: No Education: Decline to Answer Difficulty w/ Childcare or Family Care: No Gender identity (if verbalized by the patient): Male Spiritual care con
[2023-05-22 02:10] VITALS: BP 169/91; PULSE 71; RESP 18; TEMP 37.3; O2SAT 100
[2023-05-22] MEDS: HEPARIN SODIUM LOCK FLUSH 500 UNITS/5 ML VIAL IV PUSH (02:31)
--- NOTE | 2023-05-22 02:50 | PC.NURSE ---
0230: Pt picc line appears to be kinked at insertion site. Dressing removed and line pulled back slightly. RN able to flush line and draw back blood after making adjustment. Skin cleaned and PICC Line redressed following sterile procedure and dressing dated. Pt PICC line continues to flush and draw without difficulty after dressing change. Heparin Lock flush administered.
== END 2023-05-22 02:40 | disposition home or self-care (01) ==
PROVIDERS: Emergency Provider Emergency Medicine; PCP Family Medicine
DX: T82.594A Other mechanical complication of infusion catheter, initial encounter (principal); Y83.8 Other surgical procedures as the cause of abnormal reaction of the patient, or of later complication, without mention of misadventure at the time of the procedure; Z96.652 Presence of left artificial knee joint; I11.0 Hypertensive heart disease with heart failure; I50.9 Heart failure, unspecified; K21.9 Gastro-esophageal reflux disease without esophagitis; I25.2 Old myocardial infarction; F41.9 Anxiety disorder, unspecified; Z87.891 Personal history of nicotine dependence
CPT/HCPCS: 99282; J1642

== ENCOUNTER 2023-08-16 07:42 | Emergency (ER) | payer OTHER, SELFPAY ==
[2023-08-16] VITALS (25 sets, daily range): BP systolic 126–187; BP diastolic 95–126; PULSE 71–89; RESP 11–22; TEMP 36.9; O2SAT 91–99
--- NOTE | ~2023-08-16 | CT_ITS ---
EXAMINATION: CTA brain carotid DATE: 08/16/2023 09:59 INDICATION: Confusion. Cerebrovascular accident. TECHNIQUE: Computed tomographic angiography (CTA) of the head was performed with 100 mL Omnipaque-350 intravenous contrast. CTA of the neck was performed with intravenous contrast. Automated exposure co ntrol and iterative reconstruction technique were employed. The dose-length product was 1145.75 mGy-c m. Maximum intensity projection and volume rendered 3D-reconstructions were created by the [employer] st on a separate workstation. COMPARISON: Head CT 08/16/2023 FINDINGS: HEAD CTA: There is no intracranial hemorrhage, acute infarction, or abnormal intracranial mass lesion . The ventricles are normal in size. There is near complete opacification of right maxillary sinus wi th thickening and sclerosis of the sinus mar, consistent with chronic sinusitis. There is mild muco nelson thickening in other paranasal sinuses. The mastoid air cells are normal. The orbits are normal. T he vertebral arteries are codominant. There is no significant stenosis of basilar artery or the poste rior cerebral arteries. There is no significant stenosis of the intracranial internal carotid arterie s or anterior or middle cerebral arteries. Anterior communicating artery is normal. The posterior com municating arteries are normal. There is no aneurysm. NECK CTA: There is no significant stenosis of the vertebral arteries. There is plaque in the proximal internal carotid arteries. There is 0% stenosis of the proximal right internal carotid artery relati ve to normal distal artery lumen diameter (NASCET criteria). There is 0% stenosis of the proximal lef t internal carotid artery relative to normal distal artery lumen diameter. There is severe cervical s pondylosis. There is chronic anterior wedging of C5-T2 vertebral bodies. There is focal kyphosis at C 5-C6. IMPRESSION: 1. Normal brain. No aneurysm or significant intracranial arterial stenosis. 2. 0% stenosis of the proximal internal carotid arteries relative to normal distal artery lumen diame ters (NASCET criteria). 3. Chronic sinusitis. Reviewed, dictated and finalized at location A. IMPRESSION: 1. Normal brain. No aneurysm or significant intracranial arterial stenosis. 2. 0% stenosis of the proximal internal carotid arteries relative to normal dis triston artery lumen diameters (NASCET criteria). 3. Chronic sinusitis.
--- NOTE | ~2023-08-16 | CT_ITS ---
Non-contrast Head CT History: Altered mental status Technique: Axial non-contrast imaging of the brain was performed. Dose reduction technique was used on this scan by utilizing automated exposure control and iterative reconstruction technique. The dose -length product (DLP) was 681.00 mGy-cm. Findings: There is no evidence of intracranial hemorrhage, mass lesion, or acute infarct. Brain par enchyma appears normal. The ventricles and subarachnoid spaces are normal in size. The calvarium ap pears normal. There is right maxillary sinus disease. The remaining visualized paranasal sinuses and mastoid air cells are clear. Impression: No intracranial abnormality seen. Right maxillary sinus disease. Reviewed, dictated and finalized at location . Impression: No intracranial abnormality seen. Right maxillary sinus disease.
--- NOTE | 2023-08-16 08:10 | ECG_ITS ---
Test Date: 2023-08-16 08:30:34 Measurements Intervals [place] Rate: 80 P: 70 AK: 180 QRS: 63 QRSD: 117 T: 72 QT: 391 QTc: 451 Interpretive Statements SINUS RHYTHM INTRAVENTRICULAR CONDUCTION DELAY CANNOT R/O SEPTAL INFARCT, AGE INDETERMINATE BORDERLINE ST-T WAVE ABNORMALITY- INF/HIGH LAT LEADS ABNORMAL ECG No previous ECG available for comparison Electronically Signed On 08-19-2023 06:16:34 CDT by Jong Macias D.O.
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
[2023-08-16 08:30] LABS: Basophils Absolute Auto 0.03 K/mm3 (0.00-0.10); Basophils Percent Auto 0.2 % (0.0-1.0); Eosinophils Absolute Auto 0.06 K/mm3 (0.02-0.50); Eosinophils Percent Auto 0.5 % (1.0-6.0); Hematocrit 44.5 % (40.0-54.0); Hemoglobin 15.4 g/dL (14.0-18.0); Immature Granulocyte Absolute 0.11 K/mm3 (0.00-0.00); Immature Granulocyte Percent A 0.9 % (0.0-0.0); Lymphocytes Absolute Auto 1.54 K/mm3 (1.10-4.50); Mean Corpuscular HGB Conc 34.6 g/dL (32-36); Mean Corpuscular Hemoglobin 33.4 pg (27.0-31.0); Mean Corpuscular Volume 96.5 fL (78.0-102.0); Mean Platelet Volume 8.3 fl (8.7-11.0); Monocytes Absolute Auto 1.03 K/mm3 (0.10-0.90); Neutrophils Absolute Auto 10.04 K/mm3 (1.70-7.20); Neutrophils Percent Auto 78.4 % (50.0-70.0); Platelet Count Result 238 K/mm3 (150-420); Red Blood Count 4.61 M/mm3 (4.70-6.10); Red Cell Distribution Width 12.5 % (11.6-14.4); White Blood Count 12.8 K/mm3 (4.8-10.8)
[2023-08-16 08:31] LABS: Appearance Urine Clear (Clear); Bilirubin Urine Negative (Negative); Blood Urine Negative (Negative); Color Urine Light Yellow (Yellow); Glucose Urine UA 1+ (Negative); Ketones Urine Negative (Negative); Leukocyte Esterase Ur Negative LEU/UL (Negative); Nitrate Urine Negative (Negative); Protein Urine 1+ (Negative); Urobilinogen Urine 0.2 mg/dL (0.2-1.0); pH Urine 6.5 (5.0-8.0)
[2023-08-16 08:37] LABS: Amphetamine Screen Urine Negative (Negative); Barbiturate Screen Urine Negative (Negative); Benzodiazepines Screen Urine Negative (Negative); Cannabinoid Screen Urine Negative (Negative); Cocaine Screen Urine Negative (Negative); Methadone Screen Urine Negative (Negative); Opiate Screen Urine Negative (Negative); Phencyclidine Screen Urine Negative (Negative)
[2023-08-16 08:40] LABS: Add Urine Microscopic? YES; Bacteria Urine Rare /hpf; RBC Urine None seen /hpf (0-2); WBC Urine None seen /hpf (0-3)
[2023-08-16 08:49] LABS: Alanine Aminotransferase 43 U/L (16-63); Albumin Level 3.2 g/dL (3.4-5.0); Alkaline Phosphatase 78 U/L (46-116); Anion Gap 4 mmol/L (4-12); Aspartate Amino Transferase 26 U/L (15-37); Bilirubin,Total 0.9 mg/dL (0.00-1.00); Blood Urea Nitrogen 21 mg/dL (7-18); Calcium 8.8 mg/dL (8.5-10.1); Carbon Dioxide 33 mmol/L (21-32); Chloride 97 mmol/L (98-108); Estimated CRCL calculation 48 ml/min; Estimated Glomerular Filt Rate 40; Ethanol < 3 mg/dL (0-6); Glucose 150 mg/dL (70-99); Osmolality Calculated 284 mOsm/kg (285-295); Potassium 4.1 mmol/L (3.5-5.1); Sodium 134 mmol/L (136-145); Total Protein 6.9 g/dL (6.4-8.2); Troponin I 35.5 ng/L (0.00-60.4)
--- NOTE | 2023-08-16 09:48 | PC.NURSE ---
pt to ct via wheelchair and returned to room. assisted back to cot.
--- NOTE | 2023-08-16 10:29 | PC.NURSE ---
family discussing with pt plan of action , awaiting decision
--- NOTE | 2023-08-16 10:33 | PC.NURSE ---
pt ambulating in hallway, pt denies dizziness. feeling somewhat better.
== END 2023-08-16 10:50 | disposition left against medical advice (07) ==
PROVIDERS: Emergency Provider Emergency Medicine; PCP Family Medicine
DX: R29.90 Unspecified symptoms and signs involving the nervous system (principal); R41.0 Disorientation, unspecified; I13.0 Hypertensive heart and chronic kidney disease with heart failure and stage 1 through stage 4 chronic kidney disease, or unspecified chronic kidney disease; N18.9 Chronic kidney disease, unspecified; I25.2 Old myocardial infarction; Z79.891 Long term (current) use of opiate analgesic; Z79.899 Other long term (current) drug therapy; Z79.1 Long term (current) use of non-steroidal anti-inflammatories (NSAID); Z87.891 Personal history of nicotine dependence
CPT/HCPCS: 36415; 70450; 70496; 70498; 80053; 80307; 81001; 84484; 85025; 93005; 99284; Q9967

== ENCOUNTER 2023-09-23 14:01 | Emergency (ER) | payer OTHER, SELFPAY ==
[2023-09-23 14:15] VITALS: BP 179/109; PULSE 73; RESP 20; TEMP 36.6; O2SAT 98
--- NOTE | 2023-09-23 14:44 | ED.BACK ---
HPI - Back Pain/Injury General Chief Complaint: Back Pain/Injury Stated Complaint: sciatica in back flairing up Time Seen by Provider: 09/23/23 14:44 Source: patient Mode of arrival: ambulatory Limitations: no limitations History of Present Illness HPI Narrative: 52-year-old male presents with complaint of sciatic flare. Patient reports history of chronic back pain. Patient was just at rehab facility for 28 days, uncomfortable mattress and sitting for long periods of time and group therapy. States back started acting up in group therapy but did not want to check out of treatment early for medications. In the past does a taper or 10 day course of prednisone which has helped. Has prescription for meloxicam and methocarbamol. Ambulatory using 1 crutch. Patient states he uses this scratch due to right knee pain. Has had replacement to left knee and waiting on right knee replacement. Denies numbness tingling to lower extremities. No loss of bowel or bladder. All systems reviewed and negative except as noted above. Related Data Home Medications Medication Instructions Recorded Confirmed potassium chloride 10 mEq 10 meq PO BID 09/06/21 09/23/23 tablet,extended release losartan 100 mg tablet 100 mg PO DAILY 09/23/22 09/23/23 omeprazole 20 mg capsule,delayed 20 mg PO DAILY 09/23/22 09/23/23 release amlodipine 5 mg tablet 5 mg PO DAILY 02/18/23 09/23/23 meloxicam 7.5 mg tablet 7.5 mg PO DAILY 02/18/23 09/23/23 Allergies Allergy/AdvReac Type Severity Reaction Status Date / Time No Known Allergies Allergy Verified 09/23/23 14:15 Review of Systems Review of Systems: CONSTITUTIONAL: Denies fever, chills, or sweats. EYES: Denies visual changes, redness, or discharge. ENT: Denies rhinorrhea, congestion, sore throat, or otalgia. CARDIOVASCULAR: Denies chest pain, palpitations, or edema. RESPIRATORY: Denies cough or dyspnea. GASTROINTESTINAL: Denies abdominal pain, nausea, vomiting, or diarrhea. GENITOURINARY: Denies dysuria or hematuria. SKIN: Denies rash or itching. MUSCULOSKELETAL: Reports back pain. Denies joint pain, or myalgia. NEUROLOGIC: Denies headache, numbness, or weakness. PSYCHIATRIC: Denies anxiety or depression. All other systems reviewed are negative, except as documented in HPI. [facility] Past Medical History Medical History Acute CHF (congestive heart failure) Anxiety Braun's esophagus GERD (gastroesophageal reflux disease) (12/13/11) HTN (hypertension) Non-ST elevation (NSTEMI) myocardial infarction Positional vertigo Pulmonary hypertension Surgical History Surgical History No significant past surgical history Family History Family History Mother Hypertension Father Hypertension Heart attack Social History Social History Smoking packs per day: 1 Smoking cigarettes per day: 20.0 Years smoked: 15 Smoking pack-years: 15.00 Smoking status: Former smoker Tobacco type: cigarettes Second hand tobacco smoke exposure: Yes Alcohol intake: never Substance use: never Lack of Transportation: No Lack of Food: Never True Current Housing: I Have Housing Concerned About Future Housing: No Difficulty Paying Gas/Electric Bills: No Difficulty Paying for Meds: No Currently Unemployed: No Education: Decline to Answer Difficulty w/ Childcare or Family Care: No Gender identity (if verbalized by the patient): Male Spiritual care concerns: No Agree to blood products: Yes Comments At time of signature, agree with nursing past medical, surgical, social and family history. There is no relevant family history pertinent to the presenting complaint. Exam Narrative: GENERAL: This is a well-nourished, well-developed patient, in no apparent distress.
[2023-09-23] MEDS: TRIAMCINOLONE ACET INJ 40 MG/ML VIAL IM (15:07)
[2023-09-23 15:28] VITALS: BP 160/95
== END 2023-09-23 15:28 | disposition home or self-care (01) ==
PROVIDERS: Emergency Provider Nurse Practitioner Family; PCP Family Medicine
DX: M54.42 Lumbago with sciatica, left side (principal); M54.41 Lumbago with sciatica, right side; Z87.891 Personal history of nicotine dependence; I11.0 Hypertensive heart disease with heart failure; I50.9 Heart failure, unspecified; K22.70 Barrett's esophagus without dysplasia; I25.2 Old myocardial infarction; I27.20 Pulmonary hypertension, unspecified; Z96.652 Presence of left artificial knee joint
CPT/HCPCS: 96372; 99213; G0463; J3301

== ENCOUNTER 2023-10-11 16:20 | Emergency (ER) | payer OTHER, SELFPAY ==
[2023-10-11 16:23] VITALS: BP 193/114; PULSE 95; RESP 16; TEMP 37; O2SAT 99
--- NOTE | 2023-10-11 16:31 | ED.BACK ---
HPI - Back Pain/Injury General Chief Complaint: Back Pain/Injury Stated Complaint: Sciatica pain Time Seen by Provider: 10/11/23 16:47 Source: patient and RN notes reviewed Mode of arrival: ambulatory Limitations: no limitations History of Present Illness HPI Narrative: 52-year-old male presents with concern for flare-up of his back pain. Reports he was recently treated with steroids and muscle relaxer and his back pain improved. Reports he was moving an air conditioner today and he ?throughout is back again?. He reports he needs to use a crutch for mobility because of the pain. Reports he has a long history of back pain and sciatic pain. Reports he has had substance abuse issues due to pain medication for his back pain, he does not want pain medication. Reports he seen pain management in the past as well for his back pain. MD elicited complaint: back pain Related Data Home Medications Medication Instructions Recorded Confirmed potassium chloride 10 mEq 10 meq PO BID 09/06/21 10/11/23 tablet,extended release losartan 100 mg tablet 100 mg PO DAILY 09/23/22 10/11/23 omeprazole 20 mg capsule,delayed 20 mg PO DAILY 09/23/22 10/11/23 release amlodipine 5 mg tablet 5 mg PO DAILY 02/18/23 10/11/23 meloxicam 7.5 mg tablet 7.5 mg PO DAILY 02/18/23 10/11/23 cyclobenzaprine 10 mg tablet See Rx Instructions .Route .COMPLEX 10/11/23 10/11/23 Allergies Allergy/AdvReac Type Severity Reaction Status Date / Time No Known Allergies Allergy Verified 10/11/23 16:45 Review of Systems Review of Systems: CONSTITUTIONAL: Denies malaise, chills, sweats, or fever. CARDIOVASCULAR: Denies chest pain, palpitations, or edema. RESPIRATORY: Denies cough or dyspnea. GASTROINTESTINAL: Denies abdominal pain, nausea, vomiting, diarrhea, loss of bowel function GENITOURINARY: Denies dysuria, hematuria, frequency, loss of bladder function. SKIN: Denies rash or itching. MUSCULOSKELETAL: Reports low back pain NEUROLOGIC: Denies numbness, weakness, or headache. All systems reviewed & are unremarkable except as noted in HPI and below PMFSH Past Medical History Medical History Acute CHF (congestive heart failure) Anxiety Braun's esophagus GERD (gastroesophageal reflux disease) (12/13/11) HTN (hypertension) Non-ST elevation (NSTEMI) myocardial infarction Positional vertigo Pulmonary hypertension Surgical History Surgical History No significant past surgical history Family History Family History Mother Hypertension Father Hypertension Heart attack Social History Social History Smoking packs per day: 1 Smoking cigarettes per day: 20.0 Years smoked: 15 Smoking pack-years: 15.00 Smoking status: Former smoker Tobacco type: cigarettes Second hand tobacco smoke exposure: Yes Alcohol intake: never Substance use: never Lack of Transportation: No Lack of Food: Never True Current Housing: I Have Housing Concerned About Future Housing: No Difficulty Paying Gas/Electric Bills: No Difficulty Paying for Meds: No Currently Unemployed: No Education: Decline to Answer Difficulty w/ Childcare or Family Care: No Gender identity (if verbalized by the patient): Male Spiritual care concerns: No Agree to blood products: Yes Comments At time of signature, agree with nursing past medical, surgical, social and family history. There is no relevant family history pertinent to the presenting complaint Exam Narrative: GENERAL: Well-appearing, well-nourished, and in no acute distress. HEAD: Normocephalic, atraumatic. EYES: PERRLA and EOMI. NECK: Supple. No lymphadenopathy. CHEST: Clear to auscultation. No respiratory distress. HEART: Regular rate and rhythm. Distal pulses palpable and eq
[2023-10-11] MEDS: methylPREDNISolone SOD SUCC 125 MG VIAL IM (17:06)
== END 2023-10-11 17:20 | disposition home or self-care (01) ==
PROVIDERS: Emergency Provider Nurse Practitioner; PCP Family Medicine
DX: M54.50 Low back pain, unspecified (principal); Z87.891 Personal history of nicotine dependence; I11.0 Hypertensive heart disease with heart failure; I50.9 Heart failure, unspecified; K22.70 Barrett's esophagus without dysplasia; K21.9 Gastro-esophageal reflux disease without esophagitis; I25.2 Old myocardial infarction; I27.20 Pulmonary hypertension, unspecified
CPT/HCPCS: 96372; 99213; G0463; J2919

== ENCOUNTER 2024-02-18 20:11 | Emergency (ER) | payer OTHER, SELFPAY ==
[2024-02-18 20:15] VITALS: BP 180/123; PULSE 94; RESP 18; TEMP 36.8; O2SAT 96
[2024-02-18 20:31] VITALS: BP 177/98
--- NOTE | 2024-02-18 20:36 | ED.GENADULT ---
HPI - General Adult General Chief complaint: Back Pain/Injury Stated complaint: back pain Time Seen by Provider: 02/18/24 20:36 Source: patient and family ( ) Mode of arrival: ambulatory Limitations: no limitations History of Present Illness HPI narrative: 53-year-old white male was driving his car and started having back pain so came to the emergency department. Patient's head had the sciatic back pain bilaterally for years and today just got his disability letter confirm he has has disability. He has been seeing pain management for injections his last in injection was December 09. He is not scheduled for another 1 until March 11. He is taking Tylenol and ibuprofen and also has been on meloxicam for his chronic back pain. He seen a surgeon who said he needs surgery was not sure when that is going to be scheduled. His PCP is [facility]. he has also had some knee pain which is chronic uses a crutch either 1 or 2 to help him get around. He has not been at work for 2 years. He denies any fever bleeding or bruising urinary or fecal incontinence or dysfunction. Denies any rash or itching bleeding or bruising swelling lumps or bumps shortness of breath cough fevers sore throat runny nose normally his pain is a 7 to 8/10 today it is a 9/10. Using gets relief with steroids. Related Data Home Medications ?Medication ?Instructions ?Recorded ?Confirmed ?Last Taken ?Type potassium chloride 10 mEq 10 meq PO BID 09/06/21 10/11/23 09/06/21 History tablet,extended release losartan 100 mg tablet 100 mg PO DAILY 09/23/22 10/11/23 Unknown History omeprazole 20 mg capsule,delayed 20 mg PO DAILY 09/23/22 10/11/23 Unknown History release amlodipine 5 mg tablet 5 mg PO DAILY 02/18/23 10/11/23 Unknown History meloxicam 7.5 mg tablet 7.5 mg PO DAILY 02/18/23 10/11/23 Unknown History cyclobenzaprine 10 mg tablet See Rx Instructions .Route .COMPLEX 10/11/23 10/11/23 Unknown History Allergies Allergy/AdvReac Type Severity Reaction Status Date / Time No Known Allergies Allergy Verified 10/11/23 16:45 Review of Systems Review of Systems: White male patient with Moderate distress.? Head normocephalic, atraumatic.? Eyes conjunctiva pink sclera nonicteric.? Extraocular movements are intact.? Ears externally normal.? Oropharynx is clear with moist mucous membranes without exudates.? Neck is supple nontender no lymphadenopathy.? Back is nontender.? bilateral buttocks tender. Hips range of motion full. Negative straight leg raise bilateral. Lungs are clear.? Heart is regular rate and rhythm without murmurs gallops or rubs.? Chest wall nontender. Abdomen is soft and nontender no hepatosplenomegaly or masses no CVA tenderness no abdominal bruits.? Extremities no cyanosis clubbing or edema.? Skin is warm and dry without rashes or lesions.? Neurological patient is alert and oriented x4.? Motor and sensory grossly intact.? Gait is normal. [facility] Past Medical History Medical History Acute CHF (congestive heart failure) Anxiety Braun's esophagus GERD (gastroesophageal reflux disease) (12/13/11) HTN (hypertension) Non-ST elevation (NSTEMI) myocardial infarction Positional vertigo Pulmonary hypertension Surgical History Surgical History No significant past surgical history Family History Family History Mother Hypertension Father Hypertension Heart attack Social History Social History Smoking packs per day: 1 Smoking cigarettes per day: 20.0 Years smoked: 15 Smoking pack-years: 15.00 Smoking status: Former smoker Tobacco type: cigarettes Second hand tobacco smoke exposure: Yes Alcohol intake: never Substance use: never Lack of Transportation: No Lack of Food: Never True Current Housing: I Have Housing Concerned About Future Housing: No Difficulty Paying Gas/Electric Bills: No Difficulty Paying for Meds: No Currently Unemployed: No Education: Decline to Answer Difficulty w/ Childcare or Family Care: No Gender identity (if verbalized by the patient): Male Spiritual care concerns: No Agree to blood products: Yes Course Vital Signs Vital signs: Vital Signs Temperature 36.8 C 02/18/24 20:15 Pulse Rate 94 02/18/24 20:15 Respiratory Rate 18 02/18/24 20:15 Blood Pressure 180/123 H 02/18/24 20:15 Pulse Oximetry 96 02/18/24 20:15 Oxygen Delivery Room Air 02/18/24 20:15 Temperature 36.8 C 02/18/24 20:15 Pulse Rate 94 02/18/24 20:15 Respiratory Rate 18 02/18/24 20:15 Blood Pressure 139/98 H 02/18/24 22:04 Pulse Oximetry 96 02/18/24 20:15 Oxygen Delivery Room Air 02/18/24 20:15 Medical Decision Making MDM Narrative Medical decision making narrative: Patient placed in room: 2 ? History and physical was performed. Independent Historian: External Source Review: Differential Dx includes but not limited to: degenerative disc disease sciatica acute on chronic pain Medications were Reviewed: home meds reviewed Medications given: Toradol 30 mg Decadron 10 mg IM Independently Interpreted by me: Shared decision Making: evaluation was discussed all questions were asked and answered patient agreed with the plan. You take prednisone 40 mg daily for 5 days follow up with his primary care provider and his pain management doctor for further pain medications and evaluation. Social Situation Impacting Patients Care: Chronic pain chronic sciatica Discussed with Dr. BLANCHARD DIAGNOSIS: bilateral sciatica DISPOSITION : discharge home CONDITION AT DISCHARGE: stable improved Vital Signs Vital Signs: Vital Signs Temperature 36.8 C 02/18/24 20:15 Pulse Rate 94 02/18/24 20:15 Respiratory Rate 18 02/18/24 20:15 Blood Pressure 180/123 H 02/18/24 20:15 Pulse Oximetry 96 02/18/24 20:15 Oxygen Delivery Room Air 02/18/24 20:15 Temperature 36.8 C 02/18/24 20:15 Pulse Rate 94 02/18/24 20:15 Respiratory Rate 18 02/18/24 20:15 Blood Pressure 139/98 H 02/18/24 22:04 Pulse Oximetry 96 02/18/24 20:15 Oxygen Delivery Room Air 02/18/24 20:15 Discharge Plan Discharge Clinical Impression: Acute bilateral low back pain with bilateral sciatica Patient Disposition: Home, Self-Care Condition: Stable Instructions: Sciatica (ED) Additional Instructions: Tylenol and or ibuprofen (take either your meloxicam or your ibuprofen but not both ) as needed for pain. Prednisone 40 mg daily for 5 days. Follow-up with your pain management provider and your primary care provider for further pain medication and/or evaluation and treatment. Return if you get worse or develops any new symptoms. Patient Language: Icelandic Prescriptions: New prednisone 20 mg tablet 40 mg PO DAILY 5 Days Qty: 10 0RF No Action potassium chloride 10 mEq tablet extended release 10 meq PO BID omeprazole 20 mg capsule,delayed release(DR/EC) 20 mg PO DAILY losartan 100 mg tablet 100 mg PO DAILY amlodipine 5 mg tablet 5 mg PO DAILY meloxicam 7.5 mg tablet 7.5 mg PO DAILY cyclobenzaprine 10 mg tablet See Rx Instructions .ROUTE .COMPLEX Rx Instructions: as prescribed cyclobenzaprine 10 mg tablet 10 mg PO TID PRN (Reason: muscle spasm) Qty: 20 0RF prednisone 10 mg tablet 10 mg PO DAILY Qty: 42 0RF Rx Instructions: 6 tabs days 1-2, 5 tabs days 3-4, 4 tabs days 5-6, 3 tabs days 7-8, 2 tabs days 9-10, 1 tab days 11-12 furosemide 40 mg Tablet 40 mg PO DAILY Qty: 30 1RF carvedilol [Coreg] 12.5 mg Tablet 12.5 mg PO Q12HR 30 Days Qty: 60 0RF Follow-up/Referrals: [facility],Med [facility]appas M.D. [Primary Care Provider] - Time of Disposition: 23:17
[2024-02-18 21:04] VITALS: BP 140/95
[2024-02-18 22:04] VITALS: BP 139/98
[2024-02-18] MEDS: KETOROLAC 30 MG/ML VIAL (*BKC) IM (22:45)
[2024-02-18] MEDS: dexAMETHasone SOD PHOS INJ 10 MG/ML 1 ML VIAL IM (22:46)
[2024-02-18 23:23] VITALS: BP 139/74; PULSE 87; RESP 20; TEMP 36.6; O2SAT 99
== END 2024-02-18 23:23 | disposition home or self-care (01) ==
PROVIDERS: Emergency Provider Emergency Medicine; PCP Family Medicine
DX: M54.42 Lumbago with sciatica, left side (principal); M54.41 Lumbago with sciatica, right side; I11.0 Hypertensive heart disease with heart failure; I50.9 Heart failure, unspecified; I25.2 Old myocardial infarction; I27.20 Pulmonary hypertension, unspecified; K21.9 Gastro-esophageal reflux disease without esophagitis; F41.9 Anxiety disorder, unspecified; Z87.891 Personal history of nicotine dependence
CPT/HCPCS: 96372; 99284; J1100; J1885

== ENCOUNTER 2024-05-25 17:08 | Emergency (ER) | payer MEDICARE, MEDICAID, SELFPAY ==
--- NOTE | ~2024-05-25 | XR_ITS ---
HISTORY: open wounds for 3 weeks COMPARISON: None TECHNIQUE: 2 views of the left first digit were performed FINDINGS: 2.4 mm osseous density along the ulnar surface of the base of the distal phalanx of the first digit. This may represent an avulsion fracture. Joint spaces are preserved and alignment is maintained. Soft tissues are without radiopaque foreign body or significant calcification. Significant soft tissue swelling projecting over the thenar eminence. Age-appropriate mineralization. IMPRESSION: Possible avulsion fracture of the base of the distal phalanx of the first digit, as marquita garcia above. Reviewed, dictated and finalized at location A. IMPRESSION: Possible avulsion fracture of the base of the distal phalanx of th e first digit, as detailed above.
[2024-05-25 17:18] VITALS: BP 176/110; PULSE 81; RESP 20; TEMP 36.9; O2SAT 98
--- OUTSIDE RECORDS SUMMARY | 2024-05-25 18:12 | XMS_ITS ---
[facility] Organization [facility] Address [address] [place] [address] Care Team Providers Care Avionics Supervisor Name Role Phone Yinkaryland Simransue Primary Care Provider [phone] Kaila Canales Unavailable [phone] Allergies No Known Allergies REASON FOR VISIT Walk-In Medications Medication SIG (Take, Route, Frequency, Duration) Notes Start Date End Date Status Aspirin 81 MG 1 capsule Active Omeprazole 20 MG 1 capsule 30 minutes before morning meal Active Cyclobenzaprine HCl 10 MG 1 tablet at be dtime as needed Orally Once a day Active Methocarbamol 500 MG 1 Tab Orally 3 time s daily Active amLODIPine Besylate 5 MG 1 tablet Orally Once a day Active predniSONE 20 MG 2 tablets once daily for 5 days Not-Taking Suboxone 8-2 MG 1 film under the tongue and allow to dissolve three times a day 03/10/2024 Active Losartan Potassium 100 MG 1 tablet Orall y Once a day Active Potassium Chloride 10 MEQ 1 packet with food Orally Twice a day Active Ativan Not-Taking Furosemide 40 MG 1 tablet Act cassandra Meloxicam 7.5 MG 1 tablet Act cassandra Carvedilol 12.5 MG 1 tablet with food Orally Twice a day Active Social History Tobacco Use: Social History Observation Description Date Details (start date - stop date) Never Smoker NA - NA Sex Assigned At : Social History Observation Description Sex Assigned At Male Tobacco Control (Standard) Question Answer Notes Tobacco use: Nonsmoker Vital Signs Weight 219 lbs 03/10/2024 Height 70 in 03/10/2024 BMI 31.42 kg/m2 03/10/2024 Blood pressure systolic 204 mm Hg 03/10/19 25 Blood pressure diastolic 96 mm Hg 025 Heart Rate 86 /min 03/10/2024 Oximetry 97 % 03/10/2024 Respiratory Rate 16 /min 03/10/2024 Second reading done by Irish Bailon RN. Pt reports he is in severe pain today and that he has to potato picker his blood pressure medications when he leaves the office. Notified Kaila Canales. - Mitchell Fay 15:58 - 3rd BP reading 160/92 (manual left arm) Encounters Encounter Location Date Provider Diagnosis [address] [place] [address] 03/10/2024 Kaila Canales Opioid use disorder F11.99 and Nutritional counseling Z71.3 Assessments Encounter Date Diagnosis (ICD Code) Assessment Notes Treatment Notes Treatment Clinical Notes Section Notes 03/10/2024 Opioid use disorder (ICD-10 - F11.99) 03/10/2024 Nutritional counseling (ICD-10 - Z71.3) 03/10/2024 Other BP consistently elevated at visits. Recommend follow-up with PCP. Discussed risks of uncontrolled hypertension including heart attack, stroke, kidney disease, and other cardiovascular complications. Discussed s/s of hypertensive emergency and when to seek emergent medical attention. Patient agrees to take medication as prescribed. Discussed medication side effects, adverse effects, risks, benefits, as well as interactions. Encouraged non-use of opioids and other illicit substances. Has naloxone. Discontinuing buprenorphine increases the risk of overdose upon return to illicit opioid use. Use of alcohol or benzodiazepines with buprenorphine increases the risk of overdose and . Education provided about safe storage of medications. Encouraged participation in recovery groups/counseling services. Contact office with questions or concerns. Plan Of Treatment Medication Medication Name Sig Start Date Stop Date Notes Suboxone 8-2 MG 1 film under the ton shirley and allow to dissolve three times a day 03/10/2024 Treatment Notes Assessment Notes Other BP consistently elevated at visits. Recommend follow-up with PCP. Discussed risks of uncontrolled hypertension including heart attack, stroke, kidney disease, and other cardiovascular complications. Discussed s/s of hypertensive emergency and when to seek emergent medical attention. Patient agrees to take medication as prescribed. Discussed medication side effects, adverse effects, risks, benefits, as well as interactions. Encouraged non-use of opioids and other illicit substances. Has naloxone. Discontinuing buprenorphine increases the risk of overdose upon return to illicit opioid use. Use of alcohol or benzodiazepines with buprenorphine increases the risk of overdose and . Education provided about safe storage of medications. Encouraged participation in recovery groups/counseling services. Contact office with questions or concerns. 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 Due for spinal injection later this week. Last went to ER for back pain in late January, given a few days of hydrocodone. Has seen orthopedic surgeon who recommends surgery but woud like patient to complete PT first. BP elevated at today's visit. Patient reports seeing Dr. Banks for primary care. States he has not taken his medication today and plans to pickup refill from pharmacy today. Denies headache, vision changes, dizziness, shortness of breath, chest pain, oliguira, peripheral edema, or other complaints. Medication Monitoring and Risk Mitigation U p-to-date on ASAM recommended lab testing? N o, P rescribed a buprenorphine product? Y es, H as patient had a buprenorphine and metabolite lab ordered/collected? Y es (see notes for date of last metabolite testing), D ate of last buprenorphine and metabolite 0 11/14/2023, P rescription Drug Monitoring Program Review O ther (specify): 02/11/24 - cyclobenzaprine 10mg #30 Med Banks02/15/24 - hydrocodone-apap 5-325mg #6 Jose Elias Gerdelman, P adrienne to address any concerns identified: N o concerns identified. Will continue treatment plan as is.. C ravings, Setbacks, Substance use, and Stressors C ravings since last visit: N o. Patient denies cravings since last visit., S etbacks since last visit? N o, patient denies setbacks since last visit., M isuse of substances since last visit: N o, patient denies., S tressors N o, patient denies stressors at this time.. W ithdrawal and Intoxication Symptoms I ntoxication Symptoms: No signs of intoxication are present during visit., W ithdrawal Symptoms: N o withdrawal signs are present during visit.. M ental Health, Support System, and Social Determinants M ental Health Status S table., S upport Systems Include: P ersonal support system (see notes)., C ourt System Involvement? N o, H ousing Stability: S table and safe housing.,?Currently employed? U nemployed., R eferrals needed: N o referrals needed at this time.. R ecommended Wellness and Prevention Follow-up R ecommended Wellness and Prevention reviewed: R ecommended Wellness and Prevention not reviewed during this visit (see notes):. O ther concerns: O ther Concerns? N o., N arcan need N o. Patient already has Narcan..? S creening: [place] Suicide Severity Rating Scale (LF) D o you want to initiate with S creener form, 1 . Wish to be : Have you wished you were or wished you could go to sleep and not wake up? N o, 2 . Suicidal Thoughts: Have you actually had any thoughts of killing yourself? N o, 6 . Suicide Behaviour: Have you ever done anything,started to do anything, or prepared to end your life? N o, I nterpretation: L ow Risk. I nterim History: Emergency room visit Y es. W as hospitalized N o.? D epression Screening: PHQ-9 L ittle interest or pleasure in doing things N ot at all, F eeling down, depressed, or hopeless N ot at all, T rouble falling or staying asleep, or sleeping too much N ot at all, F eeling tired or having little energy N ot at all, P oor appetite or overeating N ot at all, F eeling bad about yourself or that you are a failure, or have let yourself or your family down N ot at all, T rouble concentrating on things, such as reading the newspaper or watching television N ot at all, M oving or speaking so slowly that other people could have noticed; or the opposite, being so fidgety or restless that you have been moving around a lot more than usual N ot at all, T houghts that you would be better off or of hurting yourself in some way N ot at all, T otal Score 0 . C SSRS Interpretation and Follow Up Plan: CSSRS Interpretation and Follow Up Plan C SSRS Screen documented using SF Y es, R isk Disposition from L ow - No Follow Up Plan Required, F ollow Up Plan N o Follow Up Plan required at this time.. F jimy vaccine: Flu vaccine offered F jimy Vaccine Declined .. P reventative Health and Wellness follow-up: Action Plans for Clinical Quality Measures: C olorectal Cancer Screening: D iscussed need for colorectal cancer screening. Patient declined.. . * ROS: B asic ROS: Denies S weats. D enies C onstipation. D enies?Blurred Vision. D enies N osebleed. D enies S hortness of breath. D enies?Chest pain. D enies F luid Accumulation in the legs. D enies P alpitations. D enies D ifficulty urinating. D enies H eadache. D enies T ingling/Numbness.?Denies S ubstance Abuse. D enies S uicidal Thoughts. * Medical History: * Surgical History: t otal knee replacement 2023 * Hospitalization/Major Diagno stic Procedure: d etox 07/2023 * Family History: F ather: . M other: . 2 brother(s) , 3 sister(s) - healthy. 2 son(s) , 3 daughter(s) - healthy. . Father- high blood pressure, of heart attack Mother-high blood pressure. * Social History: P rimary Social History: L iving Arrangement L iving Arrangement: D ependent Living, L iving with: lives with daughter, I s this a supportive environment? Y es. A lcohol Use A lcohol Use Frequency: N ever. I llicit Substance Usage I llicit Substance Usage: N o. E mployment Status E mployment Status: U nemployed. T obacco Use: T obacco Control (Standard) T obacco use: N onsmoker. M iscellaneous: M ethod of learning P referred method of learning: H earing. * Medications: T akingSuboxone 8-2 MG Film 1 film under the tongue and allow to dissolve three times a day Potassium Chloride 10 MEQ Packet 1 packet with food Orally Twice a day Cyclobenzaprine HCl 10 MG Tablet 1 tablet at bedtime as needed Orally Once a day amLODIPine Besylate 5 MG Tablet 1 tablet Orally Once a day Methocarbamol 500 MG Tablet 1 Tab Orally 3 times daily Omeprazole 20 MG Capsule Delayed Release 1 capsule 30 minutes before morning meal Aspirin 81 MG Capsule 1 capsule Meloxicam 7.5 MG Tablet 1 tablet Furosemide 40 MG Tablet 1 tablet Carvedilol 12.5 MG Tablet 1 tablet with food Orally Twice a day Losartan Potassium 100 MG Tablet 1 tablet Orally Once a day Taking Suboxone 8-2 MG Film 1 film under the tongue and allow to dissolve three times a day Taking Potassium Chloride 10 MEQ Packet 1 packet with food Orally Twice a day Taking Cyclobenzaprine HCl 10 MG Tablet 1 tablet at bedtime as needed Orally Once a day Taking amLODIPine Besylate 5 MG Tablet 1 tablet Orally Once a day Taking Methocarbamol 500 MG Tablet 1 Tab Orally 3 times daily Taking Omeprazole 20 MG Capsule Delayed Release 1 capsule 30 minutes before morning meal Taking Aspirin 81 MG Capsule 1 capsule Taking Meloxicam 7.5 MG Tablet 1 tablet Taking Furosemide 40 MG Tablet 1 tablet Taking Carvedilol 12.5 MG Tablet 1 tablet with food Orally Twice a day Taking Losartan Potassium 100 MG Tablet 1 tablet Orally Once a day Not-TakingpredniSONE 20 MG Tablet 2 tablets once daily Ativan Medication List reviewed and reconciled with the patientNot-Taking predniSONE 20 MG Tablet 2 tablets once daily Not-Taking Ativan Medication List reviewed and reconciled with the patient * Allergies: N .K.D.A.no[Allergies Verified] Objective: * Vitals: I nitials: st, Wt:219, Ht: 70, BMI:31.42, BP:204/96, 2nd BP read:194/92, HR:86, Oxygen sat %:97, RR:16, Pain scale:9. Second reading done by Jess Bailon RN. Pt reports he is in severe pain today and that he has to potato picker his blood pressure medications when he leaves the office. Notified Kaila Canales. - STEPHAN Fay 15:58 - 3rd BP reading 160/92 (manual left arm). * Examination: [facility] Physical Assessment: Intoxication and Withdrawal signs I ntoxication signs N o signs of intoxication are present during examination.Withdrawal Signs N o withdrawal signs are present during examination.. G eneral Examination: GENERAL APPEARANCE: a lert, pleasant, in no acute distress.? SKIN: w arm and dry. HEART: r egular rate and rhythm, no murmurs. LUNGS: r espirations regular and easy, clear to auscultation bilaterally. PSYCH: a lert, oriented x4, speech clear, good eye contact.? Assessment: * Assessment: 1. N utritional counseling - Z71.3 2 . O pioid use disorder - F11.99 (Primary) Plan: * Treatment: Value Reference Range T HC neg * C OC neg * M OP (OPI) neg * A MP neg * M ET neg * B AR neg * B ZO neg * M DMA neg * M TD neg * O XY neg * P CP neg * B UP POS 2.?Others? Notes:BP consistently elevated at visits. Recommend follow-up with PCP. Discussed risks of uncontrolled hypertension including heart attack, stroke, kidney disease, and other cardiovascular complications. Discussed s/s of hypertensive emergency and when to seek emergent medical attention. Patient agrees to take medication as prescribed. Discussedmedication side effects, adverse effects,risks, benefits, as well asinteractions. Encouraged non-use of opioids and other illicit substances. Hasnaloxone. Discontinuing buprenorphine increases the risk of overdose uponreturn to illicit opioid use. Use of alcohol or benzodiazepines withbuprenorphine increases the risk of overdose anddeath. Education providedabout safe storage of medications. Encouragedparticipation in recovery groups/counseling services. Contact office withquestions or concerns. ?? * Recommended Wellness and Pre vention Guidelines: * S tatus A lert L ast Done N ext Due A ction Taken N ONCOMPLIANT C olorectal cancer screening - 0 03/10/2024 - N ONCOMPLIANT H IV screening - 0 03/10/2024 - N ONCOMPLIANT I nfluenza vaccine (over 50) - 0 03/10/2024 - * Procedure Codes: C HS07 Flu Vaccine [id number] BODY MASS INDEX [id number] MEDICAL NUTRITION, INDIV, [id number] TOBACCO NON-USER * Preventive Medicine: Counseling: C are goal follow-up plan: B MS management provided Y es, Mal mariee Normal BMI Follow-up L ifestyle education regarding diet. 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: Completed true * Provider: Nathanael Canales, MSN, BUS MECHANIC, PMHNP-BC Date: 0 03/10/2024 Generated for Printing/Faxing/eTransmitting on: 0 05/25/2024 06:12 PM CDT History and Physical Notes * HPI (History of Present Illness) Category Sub-Category Detail Notes Category Not es Interim History Was hospitalized No Emergency room visit Yes Depression Screening PHQ-9 Little inte rest or pleasure in doing things: Not at all Feeling down, depressed, or hopeless: No t at all Trouble falling or staying asleep, or sl eeping too much: Not at all Feeling tired or having little energy: N ot at all Poor appetite or overeating: Not at all Feeling bad about yourself o r that you are a failure, or have let yourself or your family down: Not at all Trouble concentrating on thi ngs, such as reading the newspaper or watching television: Not at all Moving or speaking so slowly that other people could have noticed; or the opposite, being so fidgety or restless that you have been moving around a lot more than usual: Not at all Thoughts that you would be b arin off or of hurting yourself in some way: Not at all Total Score: 0 Screening [place] Suicide Sev erity Rating Scale (LF) Do you want to initiate with: Screener form 1. Wish to be : Have you wished you were or wished you could go to sleep and not wake up?: No 2. Suicidal Thoughts: Have you actually had any thoughts of killing yourself?: No 6. Suicide Behavior Question: Have you ever done anything,started to do anything, or prepared to end your life?: No Interpretation:: Low Risk Flu vaccine Flu vaccine offered Flu Vaccine Declined: . MAR follow-up Medication Monitorin g and Risk Mitigation Up-to-date on ASAM recommended lab testing?: No Prescribed a buprenorphine product?: Yes Has patient had a buprenorphine and metabolite lab ordered/collected?: Yes (see notes for date of last metabolite testing) Date of last buprenorphine and metabolite: 11/14/2023 Prescription Drug Monitoring Program Review: Other (specify): 02/11/24 - cyclobenzaprine 10mg #30 Med [facility] 02/15/24 - hydrocodone-apap 5-325mg #6 Jose Elias Petit Plan to address any concerns identified:: No concerns identified. Will continue treatment plan as is. Cravings, Setbacks, Substanc e use, and Stressors Cravings since last visit:: No. Patient denies cravings since last visit. Setbacks since last visit?: No, patient denies setbacks since last visit. Misuse of substances since last visit:: No, patient denies. Stressors: No, patient denies stressors at this time. Withdrawal and Intoxication Symptoms Int oxication Symptoms:: No signs of intoxication are present during visit. Withdrawal Symptoms:: No withdrawal sign s are present during visit. Mental Health, Support Syste m, and Social Determinants Mental Health Status: Stable. Support Systems Include:: Personal suppo rt system (see notes). Court System Involvement?: No Housing Stability:: Stable and safe hous ing. Currently employed?: Unemployed. Referrals needed:: No referrals needed a t this time. Recommended Wellness and Pre vention Follow-up Recommended Wellness and Prevention reviewed:: Recommended Wellness and Prevention not reviewed during this visit (see notes): Other concerns: Other Concerns?: No. Narcan need: No. Patient already has [facility] can. Preventative Health and Wellness follow-up Action Plans for Clinical Quality Measures: Colorectal Cancer Screening:: Discussed need for colorectal cancer screening. Patient declined. . CSSRS Interpretation and Follow Up Plan CSSRS Interpretation and Follow Up Plan CSSRS Screen documented using SF: Yes Risk Disposition from SF: Low - No Follo w Up Plan Required Follow Up Plan: No Follow Up Plan requir ed at this time. Examination Category Sub-Category Detail Notes Category Not es General Examination GENERAL APPEARANCE: alert, p leasant, in no acute distress HEART: regular rate and rhy thm, no murmurs LUNGS: respirations regular and easy, clear to auscultation bilaterally SKIN: warm and dry PSYCH: alert, oriented x4, speech clear, good eye contact ASAM Physical Assessment Intoxication an d Withdrawal signs Intoxication signs: No signs of intoxication are present during examination. Withdrawal Signs: No withdrawal signs ar e present during examination.
--- OUTSIDE RECORDS SUMMARY | 2024-05-25 18:12 | XMS_ITS | Clinical Summary ---
Author Organization [facility] [place] [address] [facility] Address [address] [place] [address] Care Team Providers Care Building Carpenter Name Role Phone Med Banks MD Primary Care Provider [phone] Gui Maya MD Unavailable [phone] [facility] Unavailable Jaskaran Rowland NP Unavailable [phone] Allergies No known active allergies Medications losartan (COZAAR) 100 mg tablet TAKE 1 TABLET(100 MG) BY MOUTH DAILY 90 tablet 4 06/03/19 24 Active acetaminophen (TYLENOL) 325 mg tabletIndicat ions:Fever,Pa in Take 2 tablets (650 mg total) by mouth every 4 (four) hours as needed for pain, headaches or fever 08/26/19 24 Active bisacodyl EC (DULCOLAX EC) 5 mg EC tabletIndicat ions:constipa tion Take 2 tablets (10 mg total) by mouth daily as needed for constipation (if no results 24 hours after polyethylene glycol administration) 08/26/19 24 Active naloxone (NARCAN) 4 mg/actuation spray,non-aer osol Administer 1 spray into affected nostril(s) as needed for opioid reversal for up to 2 doses Call 911. Administer a single spray in one nostril. Repeat every 3 minutes as needed if no or minimal response. 2 each 08/27/19 24 Active buprenorphine -naloxone (SUBOXONE) 4-[address] 1 Film under the tongue 2 (two) times a day 60 Film 09/02/[address] (PROTONIX) 40 mg EC tabletIndicat ions:Treatmen t of Non-Bleeding Gastric Disorder Take 1 tablet (40 mg total) by mouth daily 30 tablet 11 10/24/19 24 025 Active aspirin 81 mg enteric coated tablet Take 1 tablet (81 mg total) by mouth daily 30 tablet 3 10/28/19 24 Active potassium chloride ER 10 mEq CR tablet 09/04/19 24 Active hydroCHLOROth iazide (HYDRODIURIL) 25 mg tablet Take 1 tablet (25 mg total) by mouth daily 90 tablet 4 01/30/20 24 025 Active furosemide (LASIX) 40 mg tablet TAKE 1 TABLET BY MOUTH EVERY DAY NEEDED FOR SWELLING 30 tablet 3 02/19/19 25 Active amLODIPine (NORVASC) 5 mg tablet Take 1 tablet (5 mg total) by mouth daily 100 tablet 1 03/17/19 25 Active cyclobenzapri ne (FLEXERIL) 10 mg tablet Take 1 tablet (10 mg total) by mouth 3 (three) times a day as needed for muscle spasms for muscle spasms 30 tablet 1 03/17/19 25 Active carvediloL (COREG) 12.5 mg tablet TAKE 1 TABLET BY MOUTH TWICE A DAY WITH MEALS 60 tablet 2 04/06/19 25 Active predniSONE (DELTASONE) 10 mg tablet Take 1 tablet (10 mg) by mouth 3 (three) times a day 90 tablet 05/05/19 25 Active meloxicam (MOBIC) 7.5 mg tablet TAKE 1 TABLET BY MOUTH EVERY DAY 30 tablet 1 05/19/19 25 Active meloxicam (MOBIC) 7.5 mg tablet TAKE 1 TABLET BY MOUTH EVERY DAY 30 tablet 1 03/10/19 25 025 Discontinued predniSONE (DELTASONE) 10 mg tabletIndicat ions:Anti-inf lammatory Take 1 tablet (10 mg) by mouth 4 (four) times a day 120 tablet 04/07/19 25 025 Discontinued(A lternate therapy) Active Problems Problem Noted Date Diagnosed Date Chronic systolic congestive heart failure 2023 Assessment & Plan (02/16/2024 8:42 AM ASSIGNMENT AGENT): NO fluid overload and will montior ersponse. Healthy food chocies. WIll montior erspnose. BMI 30.0-30.9,adult 02/16/2024 Assessment & Plan (02/16/2024 8:42 AM ASSIGNMENT AGENT): Encourage 150min/week aerobic exericse. Healthy food choices. Obesity (BMI 30.0-34.9) 02/16/2024 Assessment & Plan (02/16/2024 8:42 AM ASSIGNMENT AGENT): As above. Annual physical exam 01/30/2024 Assessment & Plan (01/30/2024 4:35 PM ASSIGNMENT AGENT): In regard to health maintenance, Colonoscopy has referral- encourage to schedule PSA ordered Influenza vaccine declines Eat a healthy diet: focus on lean meats and proteins, more fruits, vegetables and whole grains and low in sugars and fats. Limit red meat and avoid processed meat. Maintain a healthy weight; avoid being overweight. Aim for a normal body mass index (BMI) of 18.5-24.9. Help learning to eat healthier, we can set up appointment with stand up forklift operator/chenille machine operator. Have an active lifestyle, strive for 30 minutes of moderate exercise 5 times a week and strength or resistance training at least twice a week. Use broad-spectrum (UVA+UVB) sunscreen with SPF 30 or greater, is water resistant, limit time spent in the sun (10 am-4pm), wear hat, wear UV protective clothing, wear sunglasses. Never use a tanning bed. Skin that was irradiated may be more sensitive over your lifetime. Do not smoke or chew tobacco; participate in a smoking cessation program. Limit alcohol intake, 1 drink per day for a woman and 2 drinks per day for a man. Radiculopathy, lumbosacral region 12/10/2023 Spinal stenosis of lumbar re gion with neurogenic claudication 11/25/2023 Assessment & Plan (02/16/2024 8:42 AM ASSIGNMENT AGENT): As above. Assessment & Plan (01/30/2024 4:43 PM ASSIGNMENT AGENT): Following with pain management and neurosurgery. Worsening pain. Will have him fu with Dr Banks to discuss options. Spondylosis of lumbar region without myelopathy or radiculopathy 11/06/2023 Assessment & Plan (02/16/2024 8:41 AM ASSIGNMENT AGENT): No evidence of cauda euqina. Continue f/u with surgeion and will also recommend f/u with prednisone taper and will monitor response. Myalgia 11/06/2023 Chronic bilateral low back pain with bilateral s ciatica 10/24/2023 Assessment & Plan (10/24/2023 10:02 AM CDT): Will obtain x-ray. Recommend physical therapy. Will also put in referral to pain management to follow-up if not improving. We reviewed red flags. Will send in prednisone taper as it did provide him relief. Discussed this is not a long-term alternative. Reviewed the risks and benefits. He is agreeable and states understanding. Elevated hemoglobin A1c 08/30/2023 Hypertensive urgency 08/29/2023 Opiate withdrawal 08/28/2023 Diplopia 08/27/2023 Fentanyl dependence 08/20/2023 Assessment & Plan (02/16/2024 8:41 AM ASSIGNMENT AGENT): See discussion as above. WIll montior ersponse. Contineus on suboxone and any opioid therapy will follow response. Assessment & Plan (01/30/2024 4:32 PM ASSIGNMENT AGENT): Currently abstaining. UDS ordered. Follow up with Dr Banks to discuss additional treatment options. Assessment & Plan (10/24/2023 10:01 AM CDT): Currently abstaining. Will continue to monitor. Screening for prostate cancer 07/29/2023 Assessment & Plan (07/29/2023 3:47 PM CDT): PSA with next set of labs. Colon cancer screening 07/29/2023 Assessment & Plan (07/29/2023 3:47 PM CDT): Referral to GI for screening colonoscopy. He is agreeable. Encouraged to schedule. Rectus diastasis 07/29/2023 Assessment & Plan (07/29/2023 3:50 PM CDT): Discussed benefits of losing weight in the abdomen. Requests to see Surgeon. Referral to General surgery placed. Stage 3b chronic kidney disease 07/29/2023 Assessment & Plan (07/29/2023 3:48 PM CDT): He is going to avoid meloxicam and ibuprofen. Discussed Tylenol p.r.n. and Voltaren gel for pain. Will continue to monitor. Prediabetes 07/29/2023 Assessment & Plan (01/30/2024 4:33 PM ASSIGNMENT AGENT): A1C ordered. Will plan accordingly once results received. Assessment & Plan (07/29/2023 3:49 PM CDT): Reviewed diet recommendations. Sounds like he eats pretty healthy. Will check A1c with next set of labs. Primary osteoarthritis of right knee 07/17/2023 Arthritis due to other bacteria, left knee 04/21 Cellulitis of left knee 04/19/2023 Aftercare following left knee joint replacement surgery 03/20/2023 Acute knee pain 03/01/2023 Pre-op examination 01/21/2023 Assessment & Plan (01/21/2023 12:45 PM ASSIGNMENT AGENT): Patient having left total knee replacement on 01/[address] Maya Presents for preop clearance Acute congestive heart failure 01/18/2023 Acute renal failure 01/18/2023 Bilateral knee pain 01/18/2023 Chest pain 01/18/2023 Dermatitis 01/18/2023 Assessment & Plan (01/30/2024 4:48 PM ASSIGNMENT AGENT): Improving. Recommend good moisturizing cream such as CeraVe daily. Monitor. Leg pain 01/18/2023 Mediastinal adenopathy 01/18/2023 Non-ST elevation (NSTEMI) myocardial infarction 01/18/2023 Pulmonary hypertension 01/18/2023 Sciatica 01/18/2023 Hypertension 01/18/2023 Anxiety 08/13/2019 Hiatal hernia 08/13/2019 Assessment & Plan (08/13/2019 2:36 PM CDT): Reviewed swallow study and imaging with patient. Advised on diet which is conducive to controlling stomach acid. Reviewed atfo-xed-llrdblk measures to help with acid control. Benign essential hypertension 07/20/2016 Overview (07/31/2016): Essential hypertension, benign Assessment & Plan (01/30/2024 4:49 PM ASSIGNMENT AGENT): Uncontrolled. Will add hydrochlorothiazide to current regimen. Follow-up next week to monitor response. Red flags reviewed. Assessment & Plan (10/24/2023 10:00 AM CDT): Stable. Will continue amlodipine, carvedilol losartan. Reviewed lifestyle recommendations. Assessment & Plan (07/29/2023 3:47 PM CDT): Much improved. Continue amlodipine, carvedilol, losartan. Will continue to monitor. Assessment & Plan (08/13/2019 2:30 PM CDT): Patient states he is using his lisinopril and furosemide daily and this is been very helpful. Dysphagia 05/11/2015 Braun's esophagus 02/01/2015 Chronic hiccoughs 06/24/2012 GERD (gastroesophageal reflux disease) 2 Resolved Problems Problem Noted Date Diagnosed Date Resolved Date Influenza A 01/18/2023 01/18/2023 Pneumonia 01/18/2023 01/18/2023 Primary osteoarthritis of left knee 01/09/2023 03/20/2023 Assessment & Plan (01/21/2023 12:46 PM ASSIGNMENT AGENT): Scheduled for left total knee replacement 01/23 Encounters Date Type Department Care Team Description 05/04/2024 Orders Only [facility] [address] [place] [address] Med Banks MD 04/27/2024 Telephone [facility] [address] [address] Med Banks MD 04/07/2024 12:00 PM ASSIGNMENT AGENT Office Visit [facility] Neurosurgery [address] [facility] [address] [place] [address] Warner Griffin PA Spondylosis of lumbar region without myelopathy or radiculopathy (Primary Dx); Thoracogenic scoliosis of thoracolumbar region; Spinal stenosis of lumbar region with neurogenic claudication; Congenital kyphosis of cervicothoracic region 04/07/2024 11:26 AM ASSIGNMENT AGENT - 04/07/2024 11:59 PM ASSIGNMENT AGENT Hospital Encounter [facility] [address] [facility] [address] [place] [address] Spondylosis of lumbar region without myelopathy or radiculopathy; Spinal stenosis of lumbar region with neurogenic claudication Discharge Disposition: Discharge to home or self care 04/07/2024 Telephone [facility] [address] [address] Med Banks MD Medical Question/Miscellaneous 04/06/2024 Orders Only [facility] [address] [address] Med Banks MD 04/03/2024 Orders Only [facility] [address] [phone] Med Banks MD 04/03/2024 Orders Only [facility] Neurosurgery [facility] [address] [place] [address] Zhou Oakley MD Spondylosis of lumbar region without myelopathy or radiculopathy (Primary Dx); Spinal stenosis of lumbar region with neurogenic claudication 04/03/2024 Telephone [facility] [address] [address] Med Banks MD Symptom Based Call 03/26/2024 Telephone [facility] [address] [address] Med Banks MD 03/25/2024 Orders Only [facility] [id number] [place] [address] [address] [place] [address] Jus Mcnamara MD Spondylosis of lumbar region without myelopathy or radiculopathy (Primary Dx); Vertebrogenic low back pain 03/25/2024 Telephone [facility] [address] [address] Med Banks MD 03/24/2024 Telephone [facility] Scheduling [address] [place] [address] Conchita Wilson 03/17/2024 Nurse Triage [facility] [address] [phone] Med Banks MD 03/17/2024 Nurse Triage [facility] [address] [phone] Med Banks MD 03/17/2024 Orders Only [facility] Primary [facility] at [address] [address] Med Banks MD 03/17/2024 Nurse Triage [facility] [address] [address] Med Banks MD 03/12/2024 11:12 AM ASSIGNMENT AGENT - 03/12/2024 11:59 PM ASSIGNMENT AGENT Hospital Encounter [facility] [id number] [place] [address] Saulo Bartholomew MD Radiculopathy, lumbosacral region [M54.17] (Primary Dx); Spinal stenosis of lumbar region with neurogenic claudication Discharge Disposition: Discharge to home or self care 03/12/2024 9:45 AM ASSIGNMENT AGENT Office Visit [facility] [address] [place] [address] 2 [address] [place] [address] Jus Mcnamara MD Thoracogenic scoliosis of thoracolumbar region (Primary Dx) 03/10/2024 Telephone [facility] [address] [facility] [address] [place] [address] Jus Mcnamara MD 03/05/2024 4:37 PM ASSIGNMENT AGENT - 03/05/2024 11:59 PM ASSIGNMENT AGENT Hospital Encounter [facility] Diagnostic Imaging [id number] [place] [id number] Spondylosis of lumbar region without myelopathy or radiculopathy; Spinal stenosis of lumbar region with neurogenic claudication Discharge Disposition: Discharge to home or self care 03/05/2024 4:03 PM ASSIGNMENT AGENT - 03/05/2024 11:59 PM ASSIGNMENT AGENT Hospital Encounter [facility] Imaging and Radiology [address] [place], [place] [id number] Spondylosis of lumbar region without myelopathy or radiculopathy; Spinal stenosis of lumbar region with neurogenic claudication Discharge Disposition: Discharge to home or self care 03/02/2024 9:00 AM ASSIGNMENT AGENT - 03/02/2024 11:59 PM ASSIGNMENT AGENT Hospital Encounter [facility] [id number] [place] [address] Jaskaran Rowland NP Radiculopathy, lumbosacral region (Primary Dx); Spinal stenosis of lumbar region with neurogenic claudication; Chronic bilateral low back pain with bilateral sciatica Discharge Disposition: Discharge to home or self care from Last 3 Months Immunizations Immunization Administration Dates Next Due Influenza, Unspecified 10/24/2023(Deferr ed: Patient Refused),05/19/2023(Deferred: Patient Refused),11/06/2022(Deferred: Patient Refused),03/08/2022(Deferred: Patient Refused),2021(Deferred: Patient Refused),10/19/2021(Deferred: Patient Refused),11/18/2020(Deferred: Patient Refused),08/13/2019(Deferred: Patient Refused),02/18/2019(Deferred: Patient Refused),02/18/2018(Deferred: Patient Refused),05/08/2017(Deferred: Patient Refused) Tdap 09/13/2023 Surgical History Surgery Date Site/Laterality Comments REPLACEMENT TOTAL KNEE 03/21/2023 - 04/18/2023 Left Medical History Medical History Date Comments Hx Other Medical esophagus probl ems; Comments: CLS 05/31/2015 - [facility]ughnelli Hypertension GERD (gastroesophageal reflux disease) CHF (congestive heart failure) (HCC) Family History Relation Name Status Comments Brother 1 ravindra Brother 2 Alive Father Alive Mother Alive Sister 1 Alive Sister 2 Alive Sister 3 Alive Social History Tobacco Use Types Packs/Day Years Used Date Smoking Tobacco: Former Cigarettes Passive Smoke Exposure: Past Smokeless Tobacco: Never Tobacco Cessation:Counseling Given: No Comments:Quit 16-17 years ago Alcohol Use Standard Drinks/Week Comments No 0 (1 standard drink = 0.6 oz pur e alcohol) [facility] Utilities Answer Date Recorded In the past 12 months has [employer], gas, oil, or water [employer] threatened to shut off services in your home? No 08/29/2023 Social Connection and Isolation Panel [NHANES] A nswer Date Recorded In a typical week, how many times do you talk on the phone with family, friends, or neighbors? Three times a week 08/29/19 How often do you get togethe r with friends or relatives? Three times a week 08/29/2023 How often do you attend chur ch or rastafari services? 1 to 4 times per year 08/29/2023 Do you belong to any clubs o r organizations such as faith groups, unions, fraternal or athletic groups, or school groups? No 08/29/2023 How often do you attend meet ings of the clubs or organizations you belong to? Never 08/29/2023 Are you , , di vorced, , never , or living with a partner? Never 08/29/2023 AUDIT-C Answer Date Recorded Q1: How often do you have a drink containing alcohol? Monthly or less 04/19/2023 Q2: How many drinks containi ng alcohol do you have on a typical day when you are drinking? Patient does not drink Q3: How often do you have si x or more drinks on one occasion? Less than monthly 04/19/2023 Overall Financial Resource Strain (CARDIA) Answe r Date Recorded How hard is it for you to pa y for the very basics like food, housing, medical care, and heating? Not very hard 08/29/2023 PHQ-2 Answer Date Recorded PHQ-2 Total Score (If total score is 3 or more points, staff should administer the PHQ-9) 1 01/30/2024 Hunger Vital Sign Answer Date Recorded Within the past 12 months, y ou worried that your food would run out before you got the money to buy more. Never true 08/29/19 24 Within the past 12 months, t he food you bought just didn't last and you didn't have money to get more. Never true 08/29/2023 PRAPARE - Transportation Answer Date Re corded In the past 12 months, has l ack of transportation kept you from medical appointments or from getting medications? No 08/18 In the past 12 months, has l ack of transportation kept you from meetings, work, or from getting things needed for daily living? No 08/29/2023 Housing Stability Vital Sign Answer Devaughn e Recorded In the last 12 months, was t here a time when you were not able to pay the mortgage or rent on time? No 08/29/2023 In the past 12 months, how m any times have you moved where you were living? 0 08/29/2023 At any time in the past 12 m [facility], were you homeless or living in a chcf (including now)? No 08/29/2023 Personal Safety Answer Date Recorded Have you ever been in or are you currently in a harmful physical or emotional relationship or is someone making you feel afraid or unsafe? Denies 10/22/2023 Sex and Gender Information Value Date Recorded Sex Assigned at Not on file Legal Sex Male 4:03 AM ASSIGNMENT AGENT Gender Identity Male 08/20/2023 5:01 PM CDT Sexual Orientation Not on file Obstetrics History Last Filed Vital Signs Vital Sign Reading Time Taken Comments Blood Pressure 135/98 03/12/2024 12:05 PM ASSIGNMENT AGENT Pulse 82 03/12/2024 12:05 PM ASSIGNMENT AGENT Temperature 36.4 C (97.5 F) 03/12/2024 10:06 AM ASSIGNMENT AGENT Respiratory Rate 20 03/12/2024 12:05 PM ASSIGNMENT AGENT Oxygen Saturation 99% 03/12/2024 12:05 PM ASSIGNMENT AGENT Inhaled Oxygen Concentration - - Weight 97.5 kg (215 lb) 04/07/2024 11:59 AM ASSIGNMENT AGENT Height 177.8 cm (5' 10 ) 04/07/2024 11:59 AM ASSIGNMENT AGENT Body Mass Index 30.85 04/07/2024 11:59 AM ASSIGNMENT AGENT Plan of Treatment Health Maintenance Due Date Last Done Comments Colon Cancer Screening-Colonoscopy 1971 Prostate Cancer Screening-PSA 1971 Hepatitis B Screening 11/27/1989 Pneumococcal vaccine <65 (1 of 2 - PCV) 11/27/1990 Zoster Vaccine (1 of 2) 11/27/2021 Regular Well Visit/Exam 18-64 02/07/2022 02/07/2021 Influenza Vaccine (Season Ended) 2024 Depression Screening 01/29/2025 01/30/2024, 01/21/2023, 11/06/2022, Additional history exists DTaP/Tdap/Td Vaccine (2 - Td or Tdap) 09/12/2033 09/13/2023 Hepatitis C Screening Completed 08/21/2023 Medical Devices Implanted Type Area Medical Facilities Section Director Device Identifier Shelf Expiration Date Model / Serial / Lot [employer] Cement Bone High Viscosity Gentamicin Radiopaque Single Dose Hemi[employer]roplp[employer] Simplex [id number] Pmma 6195-1-010 - [id number] Implanted:Qty: 1 on 01/23/2023 by Gui Maya MD at [facility] Left: Knee [employer] 05/18/2024 6195-1-010 / / [id number] [employer] Cement Bone High Viscosity Gentamicin Radiopaque Single Dose Hemiarthroplpasty Simplex [id number] Pmma 6195-1-010 - [id number] Implanted:Qty: 1 on 01/23/2023 by Gui Maya MD at [facility] Left: Knee [employer] 05/18/2024 6195-1-010 / / [id number] [employer] Attune Cemented Posterior Stabilize Knee Left 7 Component Femoral [id number] - [id number] Implanted:Qty: 1 on 01/23/2023 by Gui Maya MD at [facility] Left: Knee [employer] 06/17/2032 [id number] / / [id number] [employer] Attune S+ Cement Fix Bearing Knee 6 Baseplate Tibial [id number] - [id number] Implanted:Qty: 1 on 01/23/2023 by Gui Maya MD at [facility] Left: Knee [employer] 05/18/2032 [id number] / / [id number] [employer] Attune 5mm Posterior Stabilize Fix Bearing Knee 7 Insert Tibial [id number] - [id number] Implanted:Qty: 1 on 01/23/2023 by Gui Maya MD at [facility] Left: Knee [employer] 08/18/2027 [id number] / / [id number] Procedures Procedure Name Priority Date/Time Associated Diagnosis Comments XR SCOLIOSIS 6 OR MORE VIEWS Schedule Routine, Read Routine (OP Routine) 04/07/2024 11:50 AM ASSIGNMENT AGENT Spondylosis of lumbar region without myelopathy or radiculopathy Spinal stenosis of lumbar region with neurogenic claudication PAIN MGMT IMAGING LUMBAR/CAUDAL EPIDURAL STEROID INJ Schedule Routine, Read Routine (OP Routine) 03/12/2024 12:01 PM ASSIGNMENT AGENT Spinal stenosis of lumbar region with neurogenic claudication XR SCOLIOSIS 6 OR MORE VIEWS Schedule Routine, Read Routine (OP Routine) 03/05/2024 4:58 PM ASSIGNMENT AGENT Spondylosis of lumbar region without myelopathy or radiculopathy Spinal stenosis of lumbar region with neurogenic claudication CT LUMBAR SPINE WO CONTRAST Schedule Routine, Read Routine (OP Routine) 03/05/2024 4:31 PM ASSIGNMENT AGENT Spondylosis of lumbar region without myelopathy or radiculopathy Spinal stenosis of lumbar region with neurogenic claudication HEPATITIS PANEL, ACUTE Routine 08/21/2023 10:42 AM CDT from Last 3 Months or Most Recently Relevant to Health Maintenance Results * XR Scoliosis 6 or More Views (04/07/2024 11:50 AM ASSIGNMENT AGENT) Anatomical Region Laterality Modality Spine N/A Computed Radiogr aphy 04/07/2024 12:0 1 PM ASSIGNMENT AGENT Impressions 04/07/2024 12:01 PM ASSIGNMENT AGENT 1. Mild lumbar dextroscoliosis with mild anterior sagittal imbalance. 2. Age-indeterminate compression deformities of the C5 and C6 vertebral bodies with focal kyphosis at this level and severe degenerative disc disease from C5 to C7. 3. Multilevel degenerative disc disease in the lumbar spine, worst and moderate to severe from L3 to S1, with adynamic grade 1 anterolisthesis of L3 on L4. Electronically signed by: Ney Woods D.O. Narrative 04/07/2024 12:01 PM ASSIGNMENT AGENT EXAMINATION: XR SCOLIOSIS 6 OR MORE VIEWS HISTORY: lumbar pain COMPARISON: 03/05/2024 FINDINGS: Mild lumbar dextroscoliosis centered at L2. Mild leftward coronal imbalance. No significant pelvic obliquity. Mild anterior sagittal imbalance. Age indeterminant compression deformities of the C5 and C6 vertebral bodies with focal cervical kyphosis at this level. Severe degenerative disc disease from C5 to C7. Straightening of the thoracic and lumbar spine. Multilevel mild degenerative disc disease in the thoracic spine. Adynamic grade 1 anterolisthesis of L3 on L4. Multilevel degenerative disc disease in the lumbar spine, worst and moderate to severe from L3 to S1. Procedure Note Ney Woods DO - 04/07/2024 EXAMINATION: XR SCOLIOSIS 6 OR MORE VIEWS HISTORY: lumbar pain COMPARISON: 03/05/2024 FINDINGS: Mild lumbar dextroscoliosis centered at L2. Mild leftward coronal imbalance. No significant pelvic obliquity. Mild anterior sagittal imbalance. Age indeterminant compression deformities of the C5 and C6 vertebral bodies with focal cervical kyphosis at this level. Severe degenerative disc disease from C5 to C7. Straightening of the thoracic and lumbar spine. Multilevel mild degenerative disc disease in the thoracic spine. Adynamic grade 1 anterolisthesis of L3 on L4. Multilevel degenerative disc disease in the lumbar spine, worst and moderate to severe from L3 to S1. IMPRESSION: 1. Mild lumbar dextroscoliosis with mild anterior sagittal imbalance. 2. Age-indeterminate compression deformities of the C5 and C6 vertebral bodies with focal kyphosis at this level and severe degenerative disc disease from C5 to C7. 3. Multilevel degenerative disc disease in the lumbar spine, worst and moderate to severe from L3 to S1, with adynamic grade 1 anterolisthesis of L3 on L4. Electronically signed by: Ney Woods D.O. Zhou Oakley MD IMG XR PROCEDURES Final Re sult * Imaging Lumbar/Caudal Epidural Steroid INJ ([id number]) (03/12/2024 12:01 PM ASSIGNMENT AGENT) Narrative [facility] - 03/12/2024 12:01 PM ASSIGNMENT AGENT The images from this study are not interpreted by Radiology. Please refer to the physician's procedure / OR operative note. Jaskaran Rowland NP IMG PAIN MGMT PROCEDURES Calista l Result RAD_PACS_[facility] * XR Scoliosis 6 or More Views (03/05/2024 4:58 PM ASSIGNMENT AGENT) Anatomical Region Laterality Modality Spine N/A Computed Radiogr aphy 03/06/2024 2:17 PM ASSIGNMENT AGENT Impressions 03/06/2024 2:17 PM ASSIGNMENT AGENT Multilevel degenerative change, worse in the lower lumbar spine. Mild lumbar levoscoliosis. Electronically signed by: Sourav Nguyen M.D. Narrative 03/06/2024 2:17 PM ASSIGNMENT AGENT EXAMINATION: XR SCOLIOSIS 6 OR MORE VIEWS DATE: 03/05/2024 4:40 PM HISTORY: lumbar spondylosis, back pain, preop planning FINDINGS: Scoliosis series, AP and lateral with flexion and extension views of the lumbar spine. Approximately 14 degrees of dextroscoliosis are present between L1 and L4. Grade 1 spondylolisthesis is present at L3-L4. Grade 1 retrolisthesis is present at L4-L5. Degenerative disc disease with loss of disc height, endplate sclerosis, vacuum disc phenomenon and anterior and posterior osteophyte formation is present at L3-L4, L4-L5 and L5-S1. Degenerative changes of the facet joints are noted in the lower lumbar spine. Flexion and extension views demonstrate no instability. Procedure Note Sourav Nguyen MD - 03/06/2024 EXAMINATION: XR SCOLIOSIS 6 OR MORE VIEWS DATE: 03/05/2024 4:40 PM HISTORY: lumbar spondylosis, back pain, preop planning FINDINGS: Scoliosis series, AP and lateral with flexion and extension views of the lumbar spine. Approximately 14 degrees of dextroscoliosis are present between L1 and L4. Grade 1 spondylolisthesis is present at L3-L4. Grade 1 retrolisthesis is present at L4-L5. Degenerative disc disease with loss of disc height, endplate sclerosis, vacuum disc phenomenon and anterior and posterior osteophyte formation is present at L3-L4, L4-L5 and L5-S1. Degenerative changes of the facet joints are noted in the lower lumbar spine. Flexion and extension views demonstrate no instability. IMPRESSION: Multilevel degenerative change, worse in the lower lumbar spine. Mild lumbar levoscoliosis. Electronically signed by: Sourav Nguyen M.D. Jsu Mcnamara MD IMG XR PROCEDURES Final Resul t * CT Lumbar Spine WO Contrast (03/05/2024 4:31 PM ASSIGNMENT AGENT) Anatomical Region Laterality Modality Spine N/A Computed Tomogra phy 03/06/2024 8:51 AM ASSIGNMENT AGENT Impressions 03/06/2024 11:06 AM ASSIGNMENT AGENT Grade 1 spondylolisthesis at L4-L5, degenerated vacuum disc, facet arthropathy, epidural lipomatosis, moderate central stenosis, moderate to marked foraminal and lateral recess stenosis. L3-L4 disc degeneration, facet arthropath , epidural lipomatosis , moderate to severe central stenosis, moderate to marked foraminal and lateral recess stenosis. L2-L3 disc bulge, facet arthropathy and epidural lipomatosis with mild central stenosis. Marked L5-S1 disc degeneration facet arthropathy and marked foraminal stenosis with L5 root impingement. Electronically signed by: Lola Pritchard M.D. Narrative 03/06/2024 11:06 AM ASSIGNMENT AGENT EXAM: CT LUMBAR SPINE WO CONTRAST: DATE: 03/05/2024 4:30 PM CLINICAL HISTORY: lumbar spondylosis, back pain TECHNIQUE: Computed tomographic images of the lumbar spine were obtained in the axial plane in both bone and soft tissue windows. Coronal and sagittal reformatted images were performed. COMPARISON: MRI lumbar spine 11/22/2023. FINDINGS: There are 5 [id number] lumbar vertebral bodies. Mild scoliosis convex right is seen centered at L3. Grade 1/4 spondylolisthesis of L3 on 4 is noted. Lumbar vertebra are otherwise normal in alignment and height. Vacuum disc, marked disc narrowing, endplate osteophyte, and chronic Schmorl nodes noted at L4-L5 and L5-S1, mild to moderate at L3-L4. Bilateral SI joint vacuum phenomenon sclerosis noted with only mild erosion with no ankylosis. There are small nonspecific retroperitoneal para-aortic and paracaval nodes L1-L2: Disc bulging and mild facet arthropathy is noted with mild bilateral foraminal stenosis but no central or lateral recess stenosis. L2-L3: Disc bulging is seen extending into the foramina which are mildly stenosed. Short pedicles, mild facet arthropathy, epidural lipomatosis, sac compression and mild central stenosis is seen. L3-L4: Degenerated bulging vacuum disc with uncovering extends to the foramina with marked left foraminal stenosis and L3 root impingement and moderate on the right. Marked hypertrophic facet arthropathy, calcified thickened ligamentum flavum, epidural lipomatosis, moderate to severe central and lateral recess stenosis is seen. L4-L5: Degenerated bulging vacuum disc and osteophyte seen extending into the foramina with marked right and moderate left foraminal stenosis. Short pedicles, moderate facet arthropathy, epidural lipomatosis, moderate central and lateral recess stenosis is seen. L5-S1: Severe degenerated bulging disc and endplate osteophyte extends into the foramina with marked bilateral foraminal stenosis and L5 root impingement. [Marked facet arthropathy noted without central or lateral recess stenosis. Procedure Note Lola Pritchard MD - 03/06/2024 EXAM: CT LUMBAR SPINE WO CONTRAST: DATE: 03/05/2024 4:30 PM CLINICAL HISTORY: lumbar spondylosis, back pain TECHNIQUE: Computed tomographic images of the lumbar spine were obtained in the axial plane in both bone and soft tissue windows. Coronal and sagittal reformatted images were performed. COMPARISON: MRI lumbar spine 11/22/2023. FINDINGS: There are 5 [id number] lumbar vertebral bodies. Mild scoliosis convex right is seen centered at L3. Grade 1/4 spondylolisthesis of L3 on 4 is noted. Lumbar vertebra are otherwise normal in alignment and height. Vacuum disc, marked disc narrowing, endplate osteophyte, and chronic Schmorl nodes noted at L4-L5 and L5-S1, mild to moderate at L3-L4. Bilateral SI joint vacuum phenomenon sclerosis noted with only mild erosion with no ankylosis. There are small nonspecific retroperitoneal para-aortic and paracaval nodes L1-L2: Disc bulging and mild facet arthropathy is noted with mild bilateral foraminal stenosis but no central or lateral recess stenosis. L2-L3: Disc bulging is seen extending into the foramina which are mildly stenosed. Short pedicles, mild facet arthropathy, epidural lipomatosis, sac compression and mild central stenosis is seen. L3-L4: Degenerated bulging vacuum disc with uncovering extends to the foramina with marked left foraminal stenosis and L3 root impingement and moderate on the right. Marked hypertrophic facet arthropathy, calcified thickened ligamentum flavum, epidural lipomatosis, moderate to severe central and lateral recess stenosis is seen. L4-L5: Degenerated bulging vacuum disc and osteophyte seen extending into the foramina with marked right and moderate left foraminal stenosis. Short pedicles, moderate facet arthropathy, epidural lipomatosis, moderate central and lateral recess stenosis is seen. L5-S1: Severe degenerated bulging disc and endplate osteophyte extends into the foramina with marked bilateral foraminal stenosis and L5 root impingement. [Marked facet arthropathy noted without central or lateral recess stenosis. IMPRESSION: Grade 1 spondylolisthesis at L4-L5, degenerated vacuum disc, facet arthropathy, epidural lipomatosis, moderate central stenosis, moderate to marked foraminal and lateral recess stenosis. L3-L4 disc degeneration, facet arthropath , epidural lipomatosis , moderate to severe central stenosis, moderate to marked foraminal and lateral recess stenosis. L2-L3 disc bulge, facet arthropathy and epidural lipomatosis with mild central stenosis. Marked L5-S1 disc degeneration facet arthropathy and marked foraminal stenosis with L5 root impingement. Electronically signed by: Lola Pritchard M.D. Jus Mcnamara MD IMG CT PROCEDURES Final Resul t * (ABNORMAL) Hepatitis panel, acute Blood (08/21/2023 10:42 AM CDT) Hep A IgM Nonreactive Nonreactive Comment: Interpretive Data: If Hep A IgM Ab is reported as Equivocal, a new sample should be drawn in two weeks for testing. Current interpretive data was last revised on 19. Hep B core IgM Nonreactive Nonreactive CAMILO Comment: Interpretive Data If HepB Core IgM Ab is reported as Equivocal, a new sample should be drawn in two weeks for testing. Current interpretive data was last revised on 19. Hep C Ab Reactive(A) Nonreactive CAMILO Comment: Reactive for HCV antibodies. This may represent current or past HCV infection. Supplemental molecular testing will be automatically performed to determine current infection status in accordance with current CDC screening recommendations. Current interpretive data was last revised on 21 Interpretive Data Nonreactive: Antibodies to HCV not detected. Does NOT exclude the possibility of recent exposure to HCV. Equivocal: Equivocal for HCV antibodies. Supplemental molecular testing will be automatically performed to determine infection status in accordance with current CDC screening recommendations. Reactive: Positive for HCV antibodies. This may represent current or past HCV infection. Supplemental molecular testing will be automatically performed to determine current infection status in accordance with current CDC screening recommendations. Interpretive data was last revised on 2019. HepBsAg Nonreactive Nonreactive CAMILO Blood 08/21/2023 10:4 2 AM CDT 08/21/2023 11:09 AM CDT Sergio Manjarrez MD LAB MICROBIOLOGY - GENERAL O RDERABLES Final Result Performing Organization Address City/State/[facility] Co de Phone Number [facility] [address] [facility] Department [place] [address] from Last 3 Months or Most Recently Relevant to Health Maintenance Insurance MEDICARE IDPA MEDICARE [facility] Advance Directives For more information, please contact: [phone] * Full Code (Latest Code Status on File) Date Activated Date Inactivated Comments 08/28/2023 10:51 PM 09/02/2023 8:08 PM * Full Code Date Activated Date Inactivated Comments 08/20/2023 10:00 PM 08/27/2023 1:44 PM * Full Code Date Activated Date Inactivated Comments 04/19/2023 7:57 PM 04/23/2023 10:18 PM * Full Code Date Activated Date Inactivated Comments 01/23/2023 3:09 PM 01/24/2023 5:25 PM Care Teams Building Carpenter Relationship Specialty Start Date End Date Med Banks MD [address] [place] [address] PCP - General 05/31/15 Gui Maya MD [address] [facility] [address] [address] Surgeon Orthopedic Surgery 01/24/23 Justino Stanley Si, MD [address] [place] [address] Consulting Physician Neurology 08/26/23 Jaskaran Rowland, MORRIS [address] [place] [address] Nurse Practitioner Pain Management 11/25/23
--- OUTSIDE RECORDS SUMMARY | 2024-05-25 18:12 | XMS_ITS | Encounter Summary ---
Author Organization [facility] Healthcare Address [address] [place] [address] Care Team Providers Care Drawing Press Operator Name Role Phone Med Banks MD Primary Care Provider [phone] Gui Maya MD Unavailable [phone] Justino Stanley Si, MD Unavailable Jaskaran Rowland NP Unavailable [phone] Reason for Visit * Reason Onset Date Comments Back Pain 09/15/2023 Encounter Details Date Type Department Care Team (Late st Contact Info) Description 03/17/2024 Nurse Triage [facility] [address] [place] [address] Med Banks MD [address] [place] [address] Social History Tobacco Use Types Packs/Day Years Used Date Smoking Tobacco: Former Cigarettes Passive Smoke Exposure: Past Smokeless Tobacco: Never Comments:Quit 16-17 years ag o Alcohol Use Standard Drinks/Week Comments No 0 (1 standard drink = 0.6 oz pur e alcohol) [facility] Utilities Answer Date Recorded In the past 12 months has th e electric, gas, oil, or water company threatened to shut off services in your home? No 08/29/2023 Social Connection and Isolation Panel [NHANES] A nswer Date Recorded In a typical week, how many times do you talk on the phone with family, friends, or neighbors? Three times a week 08/29/19 24 How often do you get togethe r with friends or relatives? Three times a week 08/29/2023 How often do you attend chur ch or orthodox services? 1 to 4 times per year 08/29/2023 Do you belong to any clubs o r organizations such as jehovah's witness groups, unions, fraternal or athletic groups, or [...] any time in the past 12 m [facility], were you homeless or living in a jail (including now)? No 08/29/2023 Personal Safety Answer Date Recorded Have you ever been in or are you currently in a harmful physical or emotional relationship or is someone making you feel afraid or unsafe? 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 Gender Identity Male 08/20/2023 5:01 PM CDT Sexual Orientation Not on file documented as of this encounter Miscellaneous Notes * Telephone Encounter - Maddison Lucero MA - 03/17/2024 2:40 PM CST Patient aware [employer] * Telephone Encounter - Charo Nevarez RN - 03/17/2024 12:59 PM CST Reason for Disposition SEVERE back pain (e.g., excruciating, unable to do any normal activities) and not improved after pain medicine and CARE ADVICE Protocols used: Back Sqrm-Kyxox-HN Pt is a 53 y/o male with a hx of HTN, CHF and Sciatica calling with severe lower back pain that radiates down bilateral legs x 6 months that is worsening x 2 days. Pt states he has had appts with a surgeon and pain management. Pt received injections with no relief from pain. Pt states his surgeon stated that he was not able to do surgery on his back because it was too extensive. Pt has an appt on03-24-2024 with a neurosurgeon for another opinion. Pt states walking is difficult. Denies any difficulty with bowels and bladder. Pt declines appt and is requesting Prednisone. Please contact pt at [phone]. Please call Rx [phone]. Care advice given including Tylenol, ice and heat to area. Pt verbalized understanding and will call with worsening sx's. [employer] * Telephone Encounter - Charo Nevarez RN - 03/17/2024 12:52 PM CST Regarding: Severe back pain ----- Message from Daniela Izaguirre sent at 03/17/2024 12:51 PM MANAGER RETAIL SALES ----- Symptom Based Call Chief Complaint(s): Severe back pain Duration: worse in the last week. What type of symptom(s) is the patient experiencing? Red Flag. Is the patient concerned they are experiencing a medical emergency requiring an ambulance? No Additional Comments: Patient has a history of back pain due to arthritis. He has currently no pain medication and is in severe back pain. He has had injections and it has not helped. Does message need to be routed? Yes-Action Needed [employer] documented in this encounter Plan of Treatment Not on file documented as of this encounter Visit Diagnoses Not on filedocumented in this encounter Care Teams Drawing Press Operator Relationship Specialty Start Date End Date Med Banks MD [address] [place] [address] PCP - General 05/31/15 Gui Maya MD [address] [facility] [address] [place] [address] Surgeon Orthopedic Surgery 01/24/23 Justino Stanley Si, MD [address] [facility] [place] [address] Consulting Physician Neurology 08/26/23 [place] [address] [address] [facility] [address] [place] [address] Nurse Practitioner Pain Management 11/25/23 documented as of this encounter
--- OUTSIDE RECORDS SUMMARY | 2024-05-25 18:12 | XMS_ITS ---
Author Organization [facility] Address [address] [place] [address] Care Team Providers Care Environmental Construction Engineer Name Role Phone Alona Huston Primary Care Provider Ry Turner [phone] REASON FOR VISIT mat clinic Medications Medication SIG (Take, Route, Frequency, Duration) Notes Start Date End Date Status Meloxicam 7.5 MG 1 tablet Act cassandra Furosemide 40 MG 1 tablet Act cassandra Omeprazole 20 MG 1 capsule 30 minutes before morning meal Active Aspirin 81 MG 1 capsule Active Methocarbamol 500 MG 1 Tab Orally 3 time s daily Active Cyclobenzaprine HCl 10 MG 1 tablet at be dtime as needed Orally Once a day Active amLODIPine Besylate 5 MG 1 tablet Orally Once a day Active amLODIPine Benzoate Active Potassium Chloride 10 MEQ 1 packet with food Orally Twice a day Active Potassium Active predniSONE 20 MG 2 tablets once daily for 5 days Active Ativan Not-Taking Suboxone 8-2 MG 1 film under the tongue and allow to dissolve three times a day 02/10/2024 Active Carvedilol 12.5 MG 1 tablet with food Orally Twice a day Active Losartan Potassium 100 MG 1 tablet Orall y Once a day Active Social History Sex Assigned At : Social History Observation Description Sex Assigned At Male Encounters Encounter Location Date Provider Diagnosis [address] [place] [address] 02/13/2024 Ry Turner Plan Of Treatment No Information Progress Notes * Patric RODRIGESDOB:1970 (53 yo M)Acc No.[id number]:02/13/2024 UNLOCKED PROGRESS NOTE Patient: Patric MCKEON Provider: Talya Turner, MSN, [facility] :1970 A ge:53 Y S ex:Male Date:02/13/2024 [facility] Pcp:Alona Huston Check In:02:47 PM FRAMING CONSULTANT Subjective: * Chief Complaints: * 1 . Mat clinic. * Medical History: * Medications: T aking Suboxone 8-2 MG Film 1 film under the tongue and allow to dissolve three times a day , Taking Potassium , Taking amLODIPine Benzoate , Taking Potassium Chloride 10 MEQ Packet 1 packet with food Orally Twice a day , Taking Cyclobenzaprine HCl 10 MG Tablet 1 tablet at bedtime as needed Orally Once a day , Taking amLODIPine Besylate 5 MG Tablet 1 tablet Orally Once a day , Taking Methocarbamol 500 MG Tablet 1 Tab Orally 3 times daily , Taking Omeprazole 20 MG Capsule Delayed Release 1 capsule 30 minutes before morning meal , Taking Aspirin 81 MG Capsule 1 capsule , Taking Meloxicam 7.5 MG Tablet 1 tablet , Taking Furosemide 40 MG Tablet 1 tablet , Taking Carvedilol 12.5 MG Tablet 1 tablet with food Orally Twice a day , Taking Losartan Potassium 100 MG Tablet 1 tablet Orally Once a day , Taking predniSONE 20 MG Tablet 2 tablets once daily , Not-Taking Ativan Objective: * Vitals: Assessment: Plan: * Treatment: * * Electronic signature of Floyd Turner APRN, [phone] on 05/25/2024 at 06:12 PM CDT Sign off status: Pending * Provider: Talya Turner, MSN, [facility] Date: 04/15/2023 Generated for Printing/Faxing/eTransmitting on: 0 05/25/2024 06:12 PM CDT
--- OUTSIDE RECORDS SUMMARY | 2024-05-25 18:12 | XMS_ITS | Referral Summary ---
Author Organization [facility] [address] [facility] lto Address [address] [place] [address] Care Team Providers Care Range Conservationist Name Role Phone Med Banks MD Primary Care Provider [phone] Gui Maya MD Unavailable [phone] Justino Stanley Si, MD Unavailable Jaskaran Rowland NP Unavailable [phone] Encounters Date Type Department Care Team Description 05/04/2024 Orders Only [facility] [address] [phone] Med Banks MD 04/27/2024 Telephone [facility] [address] [address] Med Banks MD 04/07/2024 Telephone [facility] [address] [address] Med Banks MD Medical Question/Miscellaneous 04/07/2024 11:26 AM FOIL SPINNER - 04/07/2024 11:59 PM FOIL SPINNER Hospital Encounter [facility] [address] [facility] [address] [place] [address] Spondylosis of lumbar region without myelopathy or radiculopathy; Spinal stenosis of lumbar region with neurogenic claudication Discharge Disposition: Discharge to home or self care 04/07/2024 12:00 PM FOIL SPINNER Office Visit [facility] [address] [facility] [address] [facility] [address] [place] [address] Warner Griffin PA Spondylosis of lumbar region without myelopathy or radiculopathy (Primary Dx); Thoracogenic scoliosis of thoracolumbar region; Spinal stenosis of lumbar region with neurogenic claudication; Congenital kyphosis of cervicothoracic region 04/06/2024 Orders Only [facility] [address] [phone] Med Banks MD 04/03/2024 Orders Only [facility] [address] [phone] Med Banks MD 04/03/2024 Orders Only [facility] [address] [facility] [address] [place] [address] Zhou Oakley MD Spondylosis of lumbar region without myelopathy or radiculopathy (Primary Dx); Spinal stenosis of lumbar region with neurogenic claudication 04/03/2024 Telephone [facility] [address] [address] Med Banks MD Symptom Based Call 03/26/2024 Telephone [facility] [address] [phone] Med Banks MD 03/25/2024 Orders Only [facility] [address] [facility] [address] [place] [address] Jus Mcnamara MD Spondylosis of lumbar region without myelopathy or radiculopathy (Primary Dx); Vertebrogenic low back pain 03/25/2024 Telephone [facility] [address] [phone] Med Banks MD 03/24/2024 Telephone [facility] [address] [place] [address] Conchita Wilson 03/17/2024 Nurse Triage [facility] [place] [address] [place] [address] Med Banks MD 03/17/2024 Nurse Triage [facility] [address] [address] Med Banks MD 03/17/2024 Orders Only [facility] Primary Care at [address] [phone] Med Banks MD 03/17/2024 Nurse Triage [facility] [address] [phone] Med Banks MD 03/12/2024 9:45 AM FOIL SPINNER Office Visit [facility] [address] [place] [address] [address] [place] [address] Jus Mcnamara MD Thoracogenic scoliosis of thoracolumbar region (Primary Dx) 03/12/2024 11:12 AM FOIL SPINNER - 03/12/2024 11:59 PM FOIL SPINNER Hospital Encounter [facility] [address] [place] [address] Saulo Bartholomew MD Radiculopathy, lumbosacral region [M54.17] (Primary Dx); Spinal stenosis of lumbar region with neurogenic claudication Discharge Disposition: Discharge to home or self care 03/10/2024 Telephone [facility] [address] [place] [address] 2 [address] [place], [place] [phone] Jus Mcnamara MD 03/05/2024 4:37 PM FOIL SPINNER - 03/05/2024 11:59 PM FOIL SPINNER Hospital Encounter [facility] [address] [place] [phone] Spondylosis of lumbar region without myelopathy or radiculopathy; Spinal stenosis of lumbar region with neurogenic claudication Discharge Disposition: Discharge to home or self care 03/05/2024 4:03 PM FOIL SPINNER - 03/05/2024 11:59 PM FOIL SPINNER Hospital Encounter [facility] [address] [place] [phone] Spondylosis of lumbar region without myelopathy or radiculopathy; Spinal stenosis of lumbar region with neurogenic claudication Discharge Disposition: Discharge to home or self care 03/02/2024 9:00 AM FOIL SPINNER - 03/02/2024 11:59 PM FOIL SPINNER Hospital Encounter [facility] [address] [place] [address] Jaskaran Rowland NP Radiculopathy, lumbosacral region (Primary Dx); Spinal stenosis of lumbar region with neurogenic claudication; Chronic bilateral low back pain with bilateral sciatica Discharge Disposition: Discharge to home or self care from Last 3 Months Allergies No known active allergies Medications losartan [...] 2023 Assessment & Plan (02/16/2024 8:42 AM FOIL SPINNER): NO fluid overload and will montior ersponse. Healthy food chocies. WIll montior erspnose. BMI 30.0-30.9,adult 02/16/2024 Assessment & Plan (02/16/2024 8:42 AM FOIL SPINNER): Encourage 150min/week aerobic exericse. Healthy food choices. Obesity (BMI 30.0-34.9) 02/16/2024 Assessment & Plan (02/16/2024 8:42 AM FOIL SPINNER): As above. Annual physical exam 01/30/2024 Assessment & Plan (01/30/2024 4:35 PM FOIL SPINNER): In regard to health maintenance, Colonoscopy has [...] healthier, we can set up appointment with pharmacy customer care specialist/air commodore. Have an active lifestyle, strive for 30 [...] 11/25/2023 Assessment & Plan (02/16/2024 8:42 AM FOIL SPINNER): As above. Assessment & Plan (01/30/2024 4:43 PM FOIL SPINNER): Following with pain management and neurosurgery. Worsening pain. Will have him fu with Dr Banks to discuss options. Spondylosis of lumbar region without myelopathy or radiculopathy 11/06/2023 Assessment & Plan (02/16/2024 8:41 AM FOIL SPINNER): No evidence of cauda euqina. Continue f/u [...] 08/20/2023 Assessment & Plan (02/16/2024 8:41 AM FOIL SPINNER): See discussion as above. WIll montior ersponse. Contineus on suboxone and any opioid therapy will follow response. Assessment & Plan (01/30/2024 4:32 PM FOIL SPINNER): Currently abstaining. UDS ordered. Follow up with [...] 07/29/2023 Assessment & Plan (01/30/2024 4:33 PM FOIL SPINNER): A1C ordered. Will plan accordingly once results [...] 01/21/2023 Assessment & Plan (01/21/2023 12:45 PM FOIL SPINNER): Patient having left total knee replacement on 01/[address] Maya Presents for preop clearance Acute congestive heart failure 01/18/2023 Acute renal failure 01/18/2023 Bilateral knee pain 01/18/2023 Chest pain 01/18/2023 Dermatitis 01/18/2023 Assessment & Plan (01/30/2024 4:48 PM FOIL SPINNER): Improving. Recommend good moisturizing cream such as CeraVe daily. Monitor. Leg pain 01/18/2023 Mediastinal adenopathy 01/18/2023 Non-ST elevation (NSTEMI) myocardial infarction 01/18/2023 Pulmonary hypertension 01/18/2023 Sciatica 01/18/2023 Hypertension 01/18/2023 Anxiety 08/13/2019 Hiatal hernia 08/13/2019 Assessment & Plan (08/13/2019 2:36 PM CDT): Reviewed swallow study and imaging with patient. Advised on diet which is conducive to controlling stomach acid. Reviewed oxhd-clu-egdkzzc measures to help with acid control. Benign essential hypertension 07/20/2016 Overview (07/31/2016): Essential hypertension, benign Assessment & Plan (01/30/2024 4:49 PM FOIL SPINNER): Uncontrolled. Will add hydrochlorothiazide to current regimen. [...] 03/20/2023 Assessment & Plan (01/21/2023 12:46 PM FOIL SPINNER): Scheduled for left total knee replacement 01/23 Immunizations Immunization Administration Dates Next Due Influenza, Unspecified 10/24/2023(Deferr ed: Patient Refused),05/19/2023(Deferred: Patient Refused),11/06/2022(Deferred: Patient Refused),03/08/2022(Deferred: Patient Refused),2021(Deferred: Patient Refused),10/19/2021(Deferred: Patient Refused),11/18/2020(Deferred: Patient Refused),08/13/2019(Deferred: Patient Refused),02/18/2019(Deferred: Patient Refused),02/18/2018(Deferred: Patient Refused),05/08/2017(Deferred: Patient Refused) Tdap 09/13/2023 Social History Tobacco Use Types Packs/Day Years Used Date Smoking Tobacco: Former Cigarettes Passive Smoke Exposure: Past Smokeless Tobacco: Never Tobacco Cessation:Counseling Given: No Comments:Quit 16-17 years ago Alcohol Use Standard Drinks/Week Comments No 0 (1 standard drink = 0.6 oz pur e alcohol) [facility] Utilities Answer Date Recorded In the past [...] often do you attend chur ch or rastafarian services? 1 to 4 times per year 08/29/2023 Do you belong to any clubs o r organizations such as jainism groups, unions, fraternal or athletic groups, or [...] any time in the past 12 m [facility], were you homeless or living in a group home (including now)? No 08/29/2023 Personal Safety Answer Date Recorded Have you ever been in or are you currently in a harmful physical or emotional relationship or is someone making you feel afraid or unsafe? Denies 10/22/2023 Sex and Gender Information Value Date Recorded Sex Assigned at Not on file Legal Sex Male 4:03 AM FOIL SPINNER Gender Identity Male 08/20/2023 5:01 PM CDT Sexual Orientation Not on file Last Filed Vital Signs Vital Sign Reading Time Taken Comments Blood Pressure 135/98 03/12/2024 12:05 PM FOIL SPINNER Pulse 82 03/12/2024 12:05 PM FOIL SPINNER Temperature 36.4 C (97.5 F) 03/12/2024 10:06 AM FOIL SPINNER Respiratory Rate 20 03/12/2024 12:05 PM FOIL SPINNER Oxygen Saturation 99% 03/12/2024 12:05 PM FOIL SPINNER Inhaled Oxygen Concentration - - Weight 97.5 kg (215 lb) 04/07/2024 11:59 AM FOIL SPINNER Height 177.8 cm (5' 10 ) 04/07/2024 11:59 AM FOIL SPINNER Body Mass Index 30.85 04/07/2024 11:59 AM FOIL SPINNER Plan of Treatment Not on file Medical Devices Implanted Type Area Night Clerk Auditor Device Identifier Shelf Expiration Date Model / Serial / Lot [employer] Cement Bone High Viscosity Gentamicin Radiopaque Single Dose Hemiarthroplpasty Simplex [id number] Pmma 6195-1-010 - [id number] Implanted:Qty: 1 on 01/23/2023 by Gui Maya MD at [facility] Left: Knee [employer] 05/18/2024 6195-1-010 / / [id number] [employer] Cement Bone High Viscosity Gentamicin Radiopaque Single Dose Hemiarthroplpasty Simplex [id number] Pmma 6195-1-010 - [id number] Implanted:Qty: 1 on 01/23/2023 by Gui Maya MD at [facility] Left: Knee [employer] 05/18/2024 6195-1-010 / / [id number] [employer] Attune Cemented Posterior Stabilize Knee Left 7 Component Femoral [id number] - [id number] Implanted:Qty: 1 on 01/23/2023 by Gui Maya MD at [facility] Left: Knee [employer] 06/17/2032 [id number] / / [id number] [employer] Attune S+ Cement Fix Bearing Knee 6 Baseplate Tibial [id number] - [id number] Implanted:Qty: 1 on 01/23/2023 by Gui Maya MD at [facility] Left: Knee [employer] 05/18/2032 [id number] / / [id number] [employer] Attune 5mm Posterior Stabilize Fix Bearing Knee 7 Insert Tibial [id number] - [id number] Implanted:Qty: 1 on 01/23/2023 by Gui Maya MD at [facility] Left: Knee [employer] 08/18/2027 [id number] / / [id number] Procedures Procedure Name Priority Date/Time Associated Diagnosis Comments XR SCOLIOSIS 6 OR MORE VIEWS Schedule Routine, Read Routine (OP Routine) 04/07/2024 11:50 AM FOIL SPINNER Spondylosis of lumbar region without myelopathy or radiculopathy Spinal stenosis of lumbar region with neurogenic claudication PAIN MGMT IMAGING LUMBAR/CAUDAL EPIDURAL STEROID INJ Schedule Routine, Read Routine (OP Routine) 03/12/2024 12:01 PM FOIL SPINNER Spinal stenosis of lumbar region with neurogenic claudication XR SCOLIOSIS 6 OR MORE VIEWS Schedule Routine, Read Routine (OP Routine) 03/05/2024 4:58 PM FOIL SPINNER Spondylosis of lumbar region without myelopathy or radiculopathy Spinal stenosis of lumbar region with neurogenic claudication CT LUMBAR SPINE WO CONTRAST Schedule Routine, Read Routine (OP Routine) 03/05/2024 4:31 PM FOIL SPINNER Spondylosis of lumbar region without myelopathy or radiculopathy Spinal stenosis of lumbar region with neurogenic claudication HEPATITIS PANEL, ACUTE Routine 08/21/2023 10:42 AM CDT from Last 3 Months or Most Recently Relevant to Health Maintenance Results * XR Scoliosis 6 or More Views (04/07/2024 11:50 AM FOIL SPINNER) Anatomical Region Laterality Modality Spine N/A Computed Radiogr aphy 04/07/2024 12:0 1 PM FOIL SPINNER Impressions 04/07/2024 12:01 PM FOIL SPINNER 1. Mild lumbar dextroscoliosis with mild anterior [...] Ney Woods D.O. Narrative 04/07/2024 12:01 PM FOIL SPINNER EXAMINATION: XR SCOLIOSIS 6 OR MORE VIEWS [...] sult * Imaging Lumbar/Caudal Epidural Steroid INJ (59546) (03/12/2024 12:01 PM FOIL SPINNER) Narrative RAD_PACS_CH - 03/12/2024 12:01 PM FOIL SPINNER The images from this study are not interpreted by Radiology. Please refer to the physician's procedure / OR operative note. Jaskaran Rowland NP IMG PAIN MGMT PROCEDURES Calista l Result RAD_PACS_CH * XR Scoliosis 6 or More Views (03/05/2024 4:58 PM FOIL SPINNER) Anatomical Region Laterality Modality Spine N/A Computed Radiogr aphy 03/06/2024 2:17 PM FOIL SPINNER Impressions 03/06/2024 2:17 PM FOIL SPINNER Multilevel degenerative change, worse in the lower lumbar spine. Mild lumbar levoscoliosis. Electronically signed by: Sourav Nguyen M.D. Narrative 03/06/2024 2:17 PM FOIL SPINNER EXAMINATION: XR SCOLIOSIS 6 OR MORE VIEWS [...] levoscoliosis. Electronically signed by: Sourav Nguyen M.D. Jus Mcnamara MD IMG XR PROCEDURES Final Resul t * CT Lumbar Spine WO Contrast (03/05/2024 4:31 PM FOIL SPINNER) Anatomical Region Laterality Modality Spine N/A Computed Tomogra phy 03/06/2024 8:51 AM FOIL SPINNER Impressions 03/06/2024 11:06 AM FOIL SPINNER Grade 1 spondylolisthesis at L4-L5, degenerated vacuum [...] Lola Pritchard M.D. Narrative 03/06/2024 11:06 AM FOIL SPINNER EXAM: CT LUMBAR SPINE WO CONTRAST: DATE: 03/05/2024 4:30 PM CLINICAL HISTORY: lumbar spondylosis, back pain TECHNIQUE: Computed tomographic images of the lumbar spine were obtained in the axial plane in both bone and soft tissue windows. Coronal and sagittal reformatted images were performed. COMPARISON: MRI lumbar spine 11/22/2023. FINDINGS: There are 5 akq-ucb-teasgas lumbar vertebral bodies. Mild scoliosis convex right [...] lumbar spine 11/22/2023. FINDINGS: There are 5 ruk-kec-iguvnyl lumbar vertebral bodies. Mild scoliosis convex right [...] by: Lola Pritchard M.D. Jus Mcnamara MD IM CT PROCEDURES Final Resul t * (ABNORMAL) Hepatitis panel, acute Blood (08/21/2023 10:42 AM CDT) Hep A IgM Nonreactive Nonreactive Comment: Interpretive Data: If Hep A IgM Ab is reported as Equivocal, a new sample should be drawn in two weeks for testing. Current interpretive data was last revised on 19. Hep B core IgM Nonreactive Nonreactive [facility] Comment: Interpretive Data If HepB Core IgM Ab is reported as Equivocal, a new sample should be drawn in two weeks for testing. Current interpretive data was last revised on 19. Hep C Ab Reactive(A) Nonreactive [facility] Comment: Reactive for HCV antibodies. This may [...] last revised on 2019. HepBsAg Nonreactive Nonreactive [facility] Blood 08/21/2023 10:4 2 AM CDT 08/21/2023 11:09 AM CDT Sergio Manjarrez MD LAB MICROBIOLOGY - GENERAL O RDERABLES Final Result Performing Organization Address City/State/ZIP Co or Phone Number [facility] [address] [facility] [place] [address] from Last 3 Months or Most Recently Relevant to Health Maintenance [place] [address] [facility] MEDICARE [facility] Address: [address] [address] [place] [address] [employer] Advance Directives For more information, please contact: [phone] * Full Code (Latest Code Status on File) Date Activated Date Inactivated Comments 08/28/2023 10:51 PM 09/02/2023 8:08 PM * Full Code Date Activated Date Inactivated Comments 08/20/2023 10:00 PM 08/27/2023 1:44 PM * Full Code Date Activated Date Inactivated Comments 04/19/2023 7:57 PM 04/23/2023 10:18 PM * Full Code Date Activated Date Inactivated Comments 01/23/2023 3:09 PM 01/24/2023 5:25 PM Care Teams Range Conservationist Relationship Specialty Start Date End Date Med Banks MD [address] [place] [address] PCP - General 05/31/15 Gui Maya MD [address] [facility] [address] [place] [address] Surgeon Orthopedic Surgery 01/24/23 [place] [address] [place] [address] [address] [place] [address] Consulting Physician Neurology 08/26/23 [place] [address] [address] [address] [place] [address] Nurse Practitioner Pain Management 11/25/23
--- OUTSIDE RECORDS SUMMARY | 2024-05-25 18:12 | XMS_ITS ---
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 Role Phone Alona Huston Primary Care Provider [phone] LexisildefonsoKaila Unavailable [phone] Allergies No Known Allergies Results Component Value Reference Range Notes 12 Panel Urine Drug Screen Reviewed date:04/23/2024 03:10:43 PM Interpretation: Performing Lab: Notes/Report: THC neg KEYSHAWN neg MOP (OPI) neg AMP neg MET neg BAR neg BZO neg MDMA neg MTD neg OXY neg PCP neg BUP POS REASON FOR VISIT Walk-In Medications Medication SIG (Take, Route, Frequency, Duration) Notes Start Date End Date Status Ativan Not-Taking Losartan Potassium 100 MG 1 tablet Orall y Once a day Active predniSONE 20 MG 2 tablets once daily for 5 days Not-Taking Furosemide 40 MG 1 tablet Act cassandra Carvedilol 12.5 MG 1 tablet with food Orally Twice a day Active Suboxone 8-2 MG 1 film under the tongue and allow to dissolve three times a day 04/23/2024 Active Methocarbamol 500 MG 1 Tab Orally 3 time s daily Active Meloxicam 7.5 MG 1 tablet Act cassandra Omeprazole 20 MG 1 capsule 30 minutes before morning meal Active Aspirin 81 MG 1 capsule Active amLODIPine Besylate 5 MG 1 tablet Orally Once a day Active Potassium Chloride 10 MEQ 1 packet with food Orally Twice a day Active Cyclobenzaprine HCl 10 MG 1 tablet at be dtime as needed Orally Once a day Active Social History Tobacco Use: Social History Observation Description Date Details (start date - stop date) Never Smoker NA - NA Sex Assigned At : Social History Observation Description Sex Assigned At Male Tobacco Control (Standard) Question Answer Notes Tobacco use: Nonsmoker Vital Signs Weight 210.0 lbs 04/23/2024 Height 70 in 04/23/2024 BMI 30.13 kg/m2 04/23/2024 Blood pressure systolic 140 mm Hg 04/24/19 25 Blood pressure diastolic 78 mm Hg 025 Heart Rate 81 /min 04/23/2024 Oximetry 97 % 04/23/2024 Respiratory Rate 16 /min 04/23/2024 Encounters Encounter Location Date Provider Diagnosis [address] [place] [address] 04/23/2024 Kalia Canales Opioid use disorder F11.99 and Nutritional counseling Z71.3 Assessments Encounter Date Diagnosis (ICD Code) Assessment Notes Treatment Notes Treatment Clinical Notes Section Notes 04/23/2024 Opioid use disorder (ICD-10 - F11.99) 04/23/2024 Nutritional counseling (ICD-10 - Z71.3) 04/23/2024 Other Patient agrees to take medication as prescribed. [...] services. Contact office with questions or concerns. Patient may self-administe r their own medications or may self-administe r their own oral medications per [facility] Protocol. Plan Of Treatment Medication Medication Name Sig Start Date Stop Date Notes Suboxone 8-2 MG 1 film under the ton shirley and allow to dissolve three times a day 04/23/2024 Treatment Notes Assessment Notes Other Patient agrees to take medication as prescribed. [...] Weeks, Reason: MAR f/u Progress Notes * KIBBONS, PerryDOB:1970 (53 yo M)Acc No.[id number]:04/23/2024 Patient: Patric MCKEON Provider: Nathanael Canales, MSN, INSURANCE OFFICE SUPERVISOR, PMHNP-BC :1970 A ge:53 Y S ex:Male Date:04/23/2024 [facility] Pcp:Alona Huston Subjective: * Chief Complaints: * W alk-In * HPI: D epression Screening: PHQ-9 L ittle interest [...] at all, T otal Score 0 . P reventative Health and Wellness follow-up: Action Plans for Clinical Quality Measures: C olorectal Cancer Screening: N ot addressed during this visit. See notes for details., H IV Screening:?Not addressed during this visit. See notes for details.. . C SSRS Interpretation and Follow Up Plan: CSSRS Interpretation and Follow Up Plan C SSRS Screen documented using SF Y es, R isk Disposition from SF L ow - No Follow Up Plan Required, F ollow Up Plan N o Follow Up Plan required at this time.. S creening: Saunders Suicide Severity Rating Scale (LF) D o you want to initiate with S creener form, 1 . Wish to be : Have you wished you were or wished you could go to sleep and not wake up? N o, 2 . Suicidal Thoughts: Have you actually had any thoughts of killing yourself? N o, 6 . Suicide Behavior Question: Have you ever done anything,started to do anything, or prepared to end your life? N o, I nterpretation: L ow Risk. M AR follow-up: MAR walk-in, overdue for 4 week f/u Had brief lapse in insurance, stretched medication until it was active again. Has been working on eating healthier. Referred to new orthopedic surgeon, expecting to have surgery. Date still TBD. No issues with buprenorphine. Feels current dose is effective. Denies cravings or setbacks. Medication Monitoring and Risk Mitigation U p-to-date on ASAM recommended lab testing? N o, P rescribed a buprenorphine product? Y es, H as patient had a buprenorphine and metabolite lab ordered/collected? Y es (see notes for date of last metabolite testing), D ate of last buprenorphine and metabolite 0 11/14/2023, P rescription Drug Monitoring Program Review Y es. No concerns at this time., P adrienne to address any concerns identified: [...] ithdrawal and Intoxication Symptoms I ntoxication Symptoms: N o signs of intoxication are present during visit., W ithdrawal Symptoms: N o withdrawal signs are present during visit.. M ental Health, Support System, and Social Determinants M ental Health Status S table., S upport Systems Include: P ersonal support system (see notes)., C ourt System Involvement? N o, H ousing Stability: S table and safe housing., C urrently employed? S ocial Security/disability., R eferrals needed: N o referrals needed at this time.. R ecommended Wellness and Prevention Follow-up R ecommended Wellness and Prevention reviewed: R ecommended Wellness and Prevention not reviewed during this visit (see notes):. O ther concerns: O ther Concerns? N o., N arcan need N o. Patient already has Narcan.. * ROS: B asic ROS: Denies C onstipation. D enies S ubstance Abuse.? * Medical History: * Surgical History: t [...] Arrangement L iving Arrangement: D ependent Living, I s this a supportive environment? Y es. A lcohol Use A lcohol Use Frequency: N ever. I llicit Substance Usage I llicit Substance Usage: N o. E mployment Status E mployment Status: U nemployed. T obacco Use: T obacco Control (Standard) T obacco use: N onsmoker. * Medications: T akingSuboxone 8-2 MG Film [...] N .K.D.A.no[Allergies Verified] Objective: * Vitals: I nitials:cv, Wt:210.0, Ht:70, BMI:30.13, BP:140/78, HR:81, Oxygen sat %:97, RR:16, Pain scale:8. * Examination: [facility] Physical Assessment: Intoxication and Withdrawal signs I ntoxication signs N o signs of intoxication are present during examination.Withdrawal Signs N o withdrawal signs are present during examination.. G eneral Examination: GENERAL APPEARANCE: a lert, pleasant, in no acute distress.? PSYCH: a lert, oriented x4, speech clear, [...] CP neg * B UP POS 2.?Others? Notes:Patient agrees to take medication as prescribed. Discussedmedication [...] services. Contact office withquestions or concerns. ?? Clinical Notes: Patient may self-administer their own medications or may self- administer their own oral medications per [facility] Protocol.?? * Recommended Wellness and Pre vention Guidelines: * S tatus A juliette L ast Done N ext Due A ction Taken N ONCOMPLIANT A lcohol use screening - 0 04/23/2024 - N ONCOMPLIANT C holesterol screen (genl pop) - 0 04/23/2024 - N ONCOMPLIANT C olorectal cancer screening - 0 04/23/2024 - N ONCOMPLIANT H IV screening - 0 04/23/2024 - N ONCOMPLIANT I nfluenza vaccine (over 50) - 0 04/23/2024 - * Procedure Codes: 9 9000 SPECIMEN [id number] BODY MASS INDEX [id number] MEDICAL NUTRITION, INDIV, CS2194S TOBACCO NON-USER * Preventive Medicine: Counseling: C are goal follow-up plan: B CO management provided Y michael, Mal mariee Normal BMI Follow-up L ifestyle education regarding diet. * Follow Up: 4 Weeks (Reason: Apr/) * * SER Sign off status: Completed true * Provider: Nathanael Canales, MSN, INSURANCE OFFICE SUPERVISOR, PMHNP-BC Date: 0 04/23/2024 Generated for Printing/Faxing/eTransmitting on: 0 05/25/2024 06:11 PM CDT History and Physical Notes * HPI (History of Present Illness) Category Sub-Category Detail Notes Category Not es Depression Screening PHQ-9 Little inte rest or [...] Not at all Total Score: 0 Screening Saunders Suicide Sev erity Rating Scale (LF) Do [...] end your life?: No Interpretation:: Low Risk MAR follow-up Medication Monitorin g and Risk Mitigation Up-to-date on ASAM recommended lab testing?: No Prescribed a buprenorphine product?: Yes Has patient had a buprenorphine and metabolite lab ordered/collected?: Yes (see notes for date of last metabolite testing) Date of last buprenorphine and metabolite: 11/14/2023 Prescription Drug Monitoring Program Rev iew: Yes. No concerns at this time. Plan to address any concerns identified:: No [...] Stable and safe hous ing. Currently employed?: Social Security/dis ability. Referrals needed:: No referrals needed a t this time. Recommended Wellness and Pre vention Follow-up Recommended Wellness and Prevention reviewed:: Recommended Wellness and Prevention not reviewed during this visit (see notes): Other concerns: Other Concerns?: No. Narcan need: No. Patient already has [facility] can. Preventative Health and Wellness follow-up Action Plans for Clinical Quality Measures: Colorectal Cancer Screening:: Not addressed during this visit. See notes for details. . HIV Screening:: Not addressed during thi s visit. See notes for details. CSSRS Interpretation and Follow Up Plan CSSRS Interpretation and Follow Up Plan CSSRS Screen documented using SF: Yes Risk Disposition from SF: Low - No Follo w Up Plan Required Follow Up Plan: No Follow Up Plan requir ed at this time. Examination Category Sub-Category Detail Notes Category Not es General Examination GENERAL APPEARANCE: alert, p leasant, in no acute distress PSYCH: alert, oriented x4, speech clear, good eye contact ASAM Physical Assessment Intoxication an d Withdrawal signs Intoxication signs: No signs of intoxication are present during examination. Withdrawal Signs: No withdrawal signs ar e present during examination.
--- OUTSIDE RECORDS SUMMARY | 2024-05-25 18:12 | XMS_ITS | Patient Health Record ---
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 Role Phone YinkaeverardojuanAlona Primary Care Provider [phone] Ry Turner Unavailable [phone] Ciara Blum Unavailable [phone] Kaila Canales Unavailable [phone] Allergies No Known Allergies Results Component Value Reference Range Notes 12 Panel Urine Drug Screen Reviewed date:10/16/2023 03:26:17 PM Interpretation: Performing Lab: Notes/Report: THC neg KEYSHAWN neg MOP (OPI) neg AMP neg MET neg BAR neg BZO neg MDMA neg MTD neg OXY neg PCP neg BUP POS Buprenorphine and Metabolite (Urine test) Reviewed date:11/26/2023 02:22:22 PM Interpretation: Performing Lab:[facility], [address] [facility], [facility], Phone - [phone], Director - PhDAbudu Notes/Report: Clinical Information:CCU:[id number] LM Buprenorphine Positive Confirmation p erformed by Mass Spectrometry Buprenorphine Positive Buprenorphine Conf, MS, UR 523 Cutoff=10 ng/m L Norbuprenorphine Positive Norbuprenorphine Conf, MS, UR >2000 Cutoff=10 n g/mL 12 Panel Urine Drug Screen Reviewed date:11/14/2023 03:01:43 PM Interpretation: Performing Lab: Notes/Report: THC neg KEYSHAWN neg MOP (OPI) neg AMP neg MET neg BAR neg BZO neg MDMA neg MTD neg OXY neg PCP neg BUP POS 12 Panel Urine Drug Screen Reviewed date:12/12/2023 02:23:48 PM Interpretation: Performing Lab: Notes/Report: THC neg KEYSHAWN neg MOP (OPI) neg AMP neg MET neg BAR neg BZO neg MDMA neg MTD neg OXY neg PCP neg BUP POS 12 Panel Urine Drug Screen Reviewed date:02/10/2024 02:03:32 PM Interpretation: Performing Lab: Notes/Report: THC neg KEYSHAWN neg MOP (OPI) neg AMP neg MET neg BAR neg BZO neg MDMA neg MTD neg OXY neg PCP neg BUP pos 12 Panel Urine Drug Screen Reviewed date:04/23/2024 03:10:43 PM Interpretation: Performing Lab: Notes/Report: THC neg KEYSHAWN neg MOP (OPI) neg AMP neg MET neg BAR neg BZO neg MDMA neg MTD neg OXY neg PCP neg BUP POS 12 Panel Urine Drug Screen Reviewed date:03/10/2024 03:38:15 PM Interpretation: Performing Lab: Notes/Report: THC neg KEYSHAWN neg MOP (OPI) neg AMP neg MET neg BAR neg BZO neg MDMA neg MTD neg OXY neg PCP neg BUP POS 12 Panel Urine Drug Screen Reviewed date:10/03/2023 02:55:33 PM Interpretation: Performing Lab: Notes/Report: THC neg KEYSHAWN neg MOP (OPI) neg AMP neg MET neg BAR neg BZO POS MDMA neg MTD neg OXY neg PCP neg BUP POS 12 Panel Urine Drug Screen Reviewed date:01/10/2024 10:38:06 AM Interpretation: Performing Lab: Notes/Report: THC neg KEYSHAWN neg MOP (OPI) neg AMP neg MET neg BAR neg BZO neg MDMA neg MTD neg OXY neg PCP neg BUP POS 12 Panel Urine Drug Screen Reviewed date:09/27/2023 01:20:12 PM Interpretation: Performing Lab: Notes/Report: THC neg KEYSHAWN neg MOP (OPI) neg AMP neg MET neg BAR neg BZO POS MDMA neg MTD neg OXY neg PCP neg BUP POS Reason For Referral No Information Medications Medication SIG (Take, Route, Frequency, Duration) Notes Start Date End Date Status amLODIPine Besylate 5 MG 1 tablet Orally Once a day Active Suboxone 8-2 MG 1 film under the tongue and allow to dissolve three times a day 04/23/2024 Active Methocarbamol 500 MG 1 Tab Orally 3 time s daily Active Potassium Chloride 10 MEQ 1 packet with food Orally Twice a day Active Ativan Not-Taking Cyclobenzaprine HCl 10 MG 1 tablet at be dtime as needed Orally Once a day Active Meloxicam 7.5 MG 1 tablet Act cassandra Omeprazole 20 MG 1 capsule 30 minutes before morning meal Active Aspirin 81 MG 1 capsule Active Losartan Potassium 100 MG 1 tablet [...] History Observation Description Sex Assigned At Male PRAPARE Question Answer Notes Date Completed/Updated: 10/16/2023 What is your current housing situation? I do not have housing (staying with others, in a hotel, in a mcfp, living outside on the street, on a beach, or in a park) Are you worried about losing your housing? No What is the highest level of school that you have finished? High school diploma or GED What is your current work situation? Unemployed and seeking work In the past year, have you o r any family members you live with been unable to get any of the following when it was really needed? Check all that apply I do not have problems meeting my needs Has lack of transportation k ept you from medical appointments, meetings, work or from getting things needed for daily living? No How often do you see or talk to people that you care about and feel close to? (For example: talking to friends on the phone, visiting friends or family, going to restoration or club meetings) More than 5 times a week How stressed are you? Stress is when someone feels tense, nervous, anxious, or can\t sleep at night because their mind is troubled Quite a bit In the past year have you sp ent more than 2 nights in a row in a penitentiary, half-way, alf center, or juvenile correctional facility? No Are you a refugee? No What country are you from? [place] Do you feel physically and e motionally safe where you currently live? Yes In the past year, have you b een afraid of your partner or ex-partner? 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) Active confirmed Problem 545248496 Lumbago with sciatica, left side (M54.42) Active confirmed Problem [id number] Obesity (BMI 30-39.9) (E66.9) Active confirmed Problem Opioid use disorder (7859865637) Opioid use disorder (F11.99) Active confirmed Vital Signs Heart Rate 81 /min 04/23/2024 Temperature 98.2 degrees Fahrenheit 02/10/2024 Respiratory Rate 16 /min 04/23/2024 Blood pressure diastolic 78 mm Hg 04/23/2024 Oximetry 97 % 04/23/2024 Height 70 in 04/23/2024 Blood pressure systolic 140 mm Hg 04/23/2024 Weight 210.0 lbs 04/23/2024 BMI 30.13 kg/m2 04/23/2024 Encounters Encounter Location Date Provider Diagnosis [address] [address] 09/24/2023 Alona Huston [address] [address] 10/03/[address] [address] 09/27/[address] [address] 10/16/[address] [address] 09/27/2023 Ry Turner Opioid use disorder F11.99 ; Obesity (BMI 30-39.9) E66.9 and Nutritional counseling Z71.[address] [address] 10/03/2023 Ry Turner Opioid use disorder F11.99 ; Obesity (BMI 30-39.9) E66.9 and Nutritional counseling Z71.[address] [address] 11/14/2023 Ry Turner Opioid use disorder F11.99 ; Lumbago with sciatica, right side M54.41 ; Lumbago with sciatica, left side M54.42 ; Obesity (BMI 30-39.9) E66.9 and Nutritional counseling Z71.[address] [address] 12/12/2023 Kaila Szlufik Opioid use disorder F11.99 ; Nutritional counseling Z71.3 and Obesity (BMI 30-39.9) E66.[address] [address] 01/10/2024 Ry Turner Opioid use disorder F11.99 ; Obesity (BMI 30-39.9) E66.9 and Nutritional counseling Z71.[address] [address] 02/10/2024 Kaila Szlufik Opioid use disorder F11.99 and Nutritional counseling Z71.[address] [address] 03/10/2024 Kaila Szlufik Opioid use disorder F11.99 and Nutritional counseling Z71.[address] [address] 04/23/2024 Kaila Szlufik Opioid use disorder F11.99 and Nutritional counseling Z71.[address] [address] 10/16/2023 Kaila Szlufik Opioid use disorder F11.99 ; Obesity (BMI 30-39.9) E66.9 and Nutritional counseling Z71.3 Assessments Encounter Date Diagnosis (ICD Code) Assessment Notes Treatment Notes Treatment Clinical Notes Section Notes 03/10/2024 Nutritional counseling (ICD-10 - Z71.3) 03/10/2024 Opioid use disorder (ICD-10 - F11.99) 04/23/2024 Nutritional counseling (ICD-10 - Z71.3) 04/23/2024 Opioid use disorder (ICD-10 - F11.99) 02/10/2024 Nutritional counseling (ICD-10 - Z71.3) 02/10/2024 Opioid use disorder (ICD-10 - F11.99) 01/10/2024 Obesity (BMI 30-39.9) (ICD-10 - E66.9) 12/12/2023 Nutritional counseling (ICD-10 - Z71.3) 12/12/2023 Opioid use disorder (ICD-10 - F11.99) 11/14/2023 Lumbago with sciatica, right side (ICD-10 - M54.41) 01/10/2024 Opioid use disorder (ICD-10 - F11.99) 11/14/2023 Opioid use disorder (ICD-10 - F11.99) 10/16/2023 Obesity (BMI 30-39.9) (ICD-10 - E66.9) 10/16/2023 Opioid use disorder (ICD-10 - F11.99) 10/03/2023 Obesity (BMI 30-39.9) (ICD-10 - E66.9) 10/03/2023 Opioid use disorder (ICD-10 - F11.99) 09/27/2023 Obesity (BMI 30-39.9) (ICD-10 - E66.9) 09/27/2023 Opioid use disorder (ICD-10 - F11.99) 09/27/2023 Nutritional counseling (ICD-10 - Z71.3) 10/03/2023 Nutritional counseling (ICD-10 - Z71.3) 10/16/2023 Nutritional counseling (ICD-10 - Z71.3) 12/12/2023 Obesity (BMI 30-39.9) (ICD-10 - E66.9) 11/14/2023 Lumbago with sciatica, left side (ICD-10 - M54.42) 01/10/2024 Nutritional counseling (ICD-10 - Z71.3) 11/14/2023 Obesity (BMI 30-39.9) (ICD-10 - E66.9) 11/14/2023 Nutritional counseling (ICD-10 - Z71.3) 09/27/2023 Other Potential side effects of buprenorphine discussed, as well as taking buprenorphine as prescribed. Dangers of using other controlled substances (prescribed or illegal/including benzodiazepines) with buprenorphine discussed. Patient understands taking other narcotics with buprenorphine could lead to respiratory distress and even . Patient understands that ALL treating providers/physician s should be informed of buprenorphine use as part of a Medication Assisted Treatment program 09/27/2023 Other Provided case management services to address social determinants of health needs and reduce barriers to health care services. 10/03/2023 Other Potential side effects of buprenorphine discussed, as well as taking buprenorphine as prescribed. Dangers of using other controlled substances (prescribed or illegal/including benzodiazepines) with buprenorphine discussed. Patient understands taking other narcotics with buprenorphine could lead to respiratory distress and even . Patient understands that ALL treating providers/physician s should be informed of buprenorphine use as part of a Medication Assisted Treatment program 10/03/2023 Other Provided case management services to address social determinants of health needs and reduce barriers to health care services. 10/16/2023 Other Contact PCP regarding elevated BP. Discussed risks of uncontrolled hypertension. ER precautions discussed. Client agrees to take medication as prescribed. Discussed medication side effects, adverse effects, risks, benefits, as well as interactions. Encouraged non-use of opioids and other illicit substances. Has naloxone. Understand that discontinuing buprenorphine increases the risk of overdose upon return to illicit opioid use. Know that that use of alcohol or benzodiazepines with buprenorphine increases the risk of overdose and . Education provided about safe storage of medications. Encourage participation in recovery groups/counseling services. Patient understands that all treating providers/physician s should be informed of buprenorphine use as part of a Medication Assisted Recovery program. Contact office with questions or concerns. 10/16/2023 Other Provided case management services to address social determinants of health needs and reduce barriers to health care services. 12/12/2023 Other Client agrees to take medication as prescribed. Discussed [...] services. Contact office with questions or concerns. 01/10/2024 Other Potential side effects of buprenorphine discussed, as well as taking buprenorphine as prescribed. Dangers of using other controlled substances (prescribed or illegal/including benzodiazepines) with buprenorphine discussed. Patient understands taking other narcotics with buprenorphine could lead to respiratory distress and even . Patient understands that ALL treating providers/physician s should be informed of buprenorphine use as part of a Medication Assisted Treatment program 02/10/2024 Other Patient agrees to take medication as [...] services. Contact office with questions or concerns. 03/10/2024 Other BP consistently elevated at visits. [...] services. Contact office with questions or concerns. 04/23/2024 Other Patient agrees to take medication [...] self-administe r their own oral medications per [facility] Protocol. Plan Of Treatment No Information Insurance Providers Payer Name Payer Address Payer Phone Subscriber Number Group Number Insured Name Patient Relationship to Insured Coverage Start Date Coverage End Date [facility] Medicare Assure [address] [address] [place] [address] [id number] Patric Rodriges Self - patient is the insured Medical (General) History Medical History History ICD Code Opiate Use Disorder hypertension Surgical History Surgery Date(Month/Year) total knee replacement 2023 Hospitalization History Reason Date(Month/Year) detox 07/2023
--- OUTSIDE RECORDS SUMMARY | 2024-05-25 18:12 | XMS_ITS | Encounter Summary ---
Author Organization [facility] Healthcare Address [address] [place] [address] Care Team Providers Care Manager Spring Name Role Phone Med Banks MD Primary Care Provider [phone] Gui Maya MD Unavailable [phone] Justino Stanley Si, MD Unavailable Jaskaran Rowland NP Unavailable [phone] Encounter Details Date Type Department Care Team (Late st Contact Info) Description 08/28/2023 Documentation [facility] Social Work [address] [place] [id number] Anahy Manley Social History Tobacco Use Types Packs/Day Years Used Date Smoking Tobacco: Former Cigarettes Smokeless Tobacco: Never Alcohol Use Standard Drinks/Week Comments No 0 (1 standard drink = 0.6 oz pur e alcohol) [facility] Utilities Answer Date Recorded In the past 12 months has Georgina Goodman, gas, oil, or water [employer] threatened to shut off services in your [...] 08/29/2023 How often do you attend chur or yarsanism services? 1 to 4 times per year 08/29/2023 Do you belong to any clubs o r organizations such as spiritism groups, unions, fraternal or athletic groups, or [...] more points, staff should administer the PHQ-9) 0 01/21/2023 Hunger Vital Sign Answer Date Recorded Within [...] were you homeless or living in a [place] (including now)? No 08/29/2023 Personal Safety Answer Date Recorded Have you ever been in or are you currently in a harmful physical or emotional relationship or is someone making you feel afraid or unsafe? 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 [address] Surgeon Orthopedic Surgery 01/24/23 [place] [address] [place] [address] [address] [place] [address] Consulting Physician Neurology 08/26/23 [place] [address] [address] [facility] [address] [place] [address] Nurse Practitioner Pain Management 11/25/23 documented as of this encounter
--- OUTSIDE RECORDS SUMMARY | 2024-05-25 18:12 | XMS_ITS | Continuity of Care Document ---
Author Organization [facility] Address [address] [place] [address] Phone Care Team Providers Care Food And Beverage Intern Name Role Phone Rajinder Wood PT Unavailable Unavailable Procedures Procedure Date Therapeutic Activities Neuromuscular Re-Ed Therapeutic Exercise Hot or Cold Pack Therapeutic Activities Neuromuscular Re-Ed Therapeutic Exercise Hot or Cold Pack Therapeutic Activities Neuromuscular Re-Ed Therapeutic Exercise Hot or Cold Pack Therapeutic Activities Neuromuscular Re-Ed Therapeutic Exercise Hot or Cold Pack PT Evaluation High Complexity Neuromuscular Re-Ed Therapeutic Exercise Advance Directives Directive Yes / No Effective Date File Name No Information Encounters Encounter Description Practice Location Reason(s) For Visit Diagnoses Date Provider Providers Copied on Encounter [facility], [place], [place], [id number], [place] tel:[phone] [place] No Information 5 Nina Calvillo. . [facility], [place], [place], [id number], [place] tel:[phone] [place] No Information Feb-2 4-202 5 Muehl Nik. [address] [place] [address], [address], [place], [place], [facility], [place]. tel: [phone] Referring Provider: Jus Mcnamara [address], [place], [address]. tel:[phone] [facility], [address] [place], [place] [address], [place], [place], [id number], tel:[phone] [place] No Information 5 Espino Steffi. . Referring Provider: Jus Mcnamara [address], [place], [address]. tel:[phone] [place], [place] [address], [place], [place], [id number], [place] tel:[phone] [place] No Information 5 Muehl Nik. [address] [place] [address], [address], [place], [place], [facility], [place]. tel: [phone] Referring Provider: Jus Mcnamara [address], [place], [address]. tel:[phone] [place], [place] [address], [place], [place], [id number], [place] tel:[phone] [place] No Information 0 5 Muehl Nik. [address] [place] [address], [address], [place], [place], [facility], [place]. tel: [phone] Referring Provider: Jus Mcnamara [address], [place], [address]. tel:[phone] [address], [place], [id number], [place] tel:[phone] [place] No Information b0 5 Muehl Nik. [address] [place] [address], [address], [place], [address], [place]. tel: [phone] Referring Provider: Jus Mcnamara [address], [place], [address]. tel:[phone] Family History Family Member Type Diagnosis Age At Onset No Information Payers Payer name Insurance type Covered green party ID Authoriza tijovi(s) Medicare [place] [id number] Social History Type Description Quantity Date Captured Comments Sex Male Smoking Status No Information Chief Complaint And Reason For Visit No Information Reason For Referral Reason For Referral No Information History Of Present Illness Encounter Date Complaint History Of Prese nt Illness No Information Functional Status Date Functional Assessmen t No Information Instructions Date Instruction Additional Infor mation No Information Assessments Type Assessment Date No Information Patient Care Teams Name Effective Dates (start - stop) Status Members No Information
--- OUTSIDE RECORDS SUMMARY | 2024-05-25 18:13 | XMS_ITS | Continuity of Care Document ---
Author Organization [facility] Address [address] [place] [address] Phone Care Team Providers Care It Communications Specialist Name Role Phone Rajinder Wood PT Unavailable [...] Diagnoses Date Provider Providers Copied on Encounter [facility], [place], [place], [id number], [place] tel:[phone] [place] No Information 5 Nina Calvillo. . [facility], [place], [place], [id number], [place] tel:[phone] [place] No Information Feb-2 4-202 5 Muehl Nik. [address] [place] [address], [address], [place], [place], [facility], [place]. tel: [phone] Referring Provider: Jus Mcnamara [address], [place], [address]. tel:[phone] [facility], [address] [place], [place] [address], [place], [place], [id number], tel:[phone] [place] No Information 5 Espino Steffi. . Referring Provider: Jus Mcnamara [address], [place], [address]. tel:[phone] [place], [place] [address], [place], [place], [id number], [place] tel:[phone] [place] No Information 5 Muehl Nik. [address] [place] [address], [address], [place], [place], [facility], [place]. tel: [phone] Referring Provider: Jus Mcnamara [address], [place], [address]. tel:[phone] [place], [place] [address], [place], [place], [id number], [place] tel:[phone] [place] No Information 0 5 Muehl Nik. [address] [place] [address], [address], [place], [place], [facility], [place]. tel: [phone] Referring Provider: Jus Mcnamara [address], [place], [address]. tel:[phone] [address], [place], [id number], [place] tel:[phone] [place] No Information b0 5 Muehl Nik. [address] [place] [address], [address], [place], [address], [place]. tel: [phone] Referring Provider: Jus Mcnamara [address], [place], [address]. tel:[phone] Family History Family Member Type Diagnosis Age At Onset No Information Payers Payer name Insurance type Covered democrat ID Authoriza tijovi(s) Medicare [place] [id number] Social History Type Description Quantity Date Captured [...]
--- NOTE | 2024-05-25 18:19 | ED_ITS ---
HPI - Skin/Abscess/Foreign Bdy General Chief complaint: Skin/Abscess/Foreign Body Stated complaint: Thumb/Skin Sore Time Seen by Provider: 05/25/24 17:30 Source: patient and RN notes reviewed Mode of arrival: ambulatory Limitations: no limitations History of Present Illness HPI narrative: 53-year-old male presents Express Care complaining with left thumb pain and wound for 3 weeks. 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 He said he always gets dry skin and cracks in his hands. The left thumb started as crack in the skin and then progressively got worse and started to turn red and purple. The patient states that the bruising was down to his IPJ and now has started to improve. He still has redness and bruising and tenderness to palpation to his left thumb. He has been putting antibiotic ointment on it however he has not been seen by a provider for further treatment and management of his symptoms. He denies any fevers, chills, body aches, red streaking or any other concerns. Related Data Home Medications ?Medication ?Instructions ?Recorded ?Confirmed ?Last Taken ?Type potassium chloride 10 mEq 10 meq PO BID 09/06/21 10/11/23 09/06/21 History tablet,extended release losartan 100 mg tablet 100 mg PO DAILY 09/23/22 10/11/23 Unknown History omeprazole 20 mg capsule,delayed 20 mg PO DAILY 09/23/22 10/11/23 Unknown History release amlodipine 5 mg tablet 5 mg PO DAILY 02/18/23 10/11/23 Unknown History meloxicam 7.5 mg tablet 7.5 mg PO DAILY 02/18/23 10/11/23 Unknown History cyclobenzaprine 10 mg tablet See Rx Instructions .Route .COMPLEX 10/11/23 10/11/23 Unknown History Allergies Allergy/AdvReac Type Severity Reaction Status Date / Time No Known Allergies Allergy Verified 05/25/24 17:16 Review of Systems Review of Systems: CONSTITUTIONAL: Denies fever, chills, or sweats. EYES: Denies visual changes, redness, or discharge. ENT: Denies rhinorrhea, congestion, sore throat, or otalgia. CARDIOVASCULAR: Denies chest pain, palpitations, or edema. RESPIRATORY: Denies cough or dyspnea. GASTROINTESTINAL: Denies abdominal pain, nausea, vomiting, or diarrhea. GENITOURINARY: Denies dysuria or hematuria. SKIN: Denies rash or itching. Positive for left thumb wound. MUSCULOSKELETAL: Denies back pain, joint pain, or myalgia. NEUROLOGIC: Denies headache, numbness, or weakness. PSYCHIATRIC: Denies anxiety or depression. All other systems reviewed are negative, except as documented in HPI. [facility] Past Medical History Medical History GERD (gastroesophageal reflux disease) (12/13/11) Pulmonary hypertension Acute CHF (congestive heart failure) Non-ST elevation (NSTEMI) myocardial infarction Positional vertigo Anxiety Braun's esophagus HTN (hypertension) Surgical History Surgical History No significant past surgical history Family History Family History Mother Hypertension Father Hypertension Heart attack Social History Social History Smoking packs per day: 1 Smoking cigarettes per day: 20.0 Years smoked: 15 Smoking pack-years: 15.00 Smoking status: Former smoker Tobacco type: cigarettes Second hand tobacco smoke exposure: Yes Alcohol intake: never Substance use: never Lack of Transportation: No Lack of Food: Never True Current Housing: I Have Housing Concerned About Future Housing: No Difficulty Paying Gas/Electric Bills: No Difficulty Paying for Meds: No Currently Unemployed: No Education: Decline to Answer Difficulty w/ Childcare or Family Care: No Gender identity (if verbalized by the patient): Male Spiritual care concerns: No Agree to blood products: Yes Comments At the time of my signature, I reviewed and agree with the nursing past medical, surgical, social, and family history. There is no relevant family history pertinent to the patient complaint. Exam Narrative: GENERAL: This is a well-nourished, well-developed adult, in no apparent distress. They are non ill-appearing, nontoxic appearing. HEAD: normocephalic, atraumatic. EYES: Sclera clear/white. Vision is grossly intact. EARS: External ears normal, Hearing grossly intact. NOSE: External nose normal THROAT: Mucous membranes moist, NECK: Normal range of motion CARDIOVASCULAR: Regular rate and rhythm RESPIRATORY: No respiratory distress, normal respiratory effort, breathing nonlabored SKIN: Left thumb: Redness and ecchymosis to the palmar surface of the left thumb at the distal tip. There are 2 scabbed ulcerations measuring approximately 0.5 cm each to the medial and lateral side of the palmar surface of the thumb at the distal tip. There is tenderness to palpation. Capillary refill less than 2 seconds, the distal tip of the thumb is cool to touch. Patient is able to extend and flex his thumb without discomfort. NEURO: awake, alert, and oriented to person, place and time. There were no obvious focal neurologic abnormalities. EXTREMITIES: No joint tenderness, effusion, or edema noted. Course Course Level of Care: Express Care Visit Vital Signs Vital signs: Vital Signs Temperature 98.4 F 05/25/24 17:18 Pulse Rate 81 05/25/24 17:18 Respiratory Rate 20 05/25/24 17:18 Blood Pressure 176/110 H 05/25/24 17:18 Pulse Oximetry 98 05/25/24 17:18 Oxygen Delivery Room Air 05/25/24 17:18 Temperature 98.4 F 05/25/24 17:18 Pulse Rate 81 05/25/24 17:18 Respiratory Rate 20 05/25/24 17:18 Blood Pressure 174/109 H 05/25/24 19:27 Pulse Oximetry 98 05/25/24 17:18 Oxygen Delivery Room Air 05/25/24 17:18 Reviewed MDM - Skin/Abscess/Foreign Bdy MDM Narrative Medical decision making narrative: X-ray noted there there is a possible avulsion fracture. Patient denies any recent traumatic injury to his left thumb but he states that he did a traumatic thumb injury as a child that required surgery. Will treat empirically for cellulitis with cephalexin for 10 days. Discussed physical exam findings. Advised supportive measures and signs/symptoms to go to the ER. Pt is appropriate for outpt treatment and f/u. Recheck of patient's blood pressure, and it remains elevated. Patient denies any symptoms and has a history of hypertension. He does take hypertensive medications but he has stated that he has not taken them today. Patient was advised to take his blood pressure medications as soon as he gets home in ER precautions were discussed. Differential Diagnosis Differential diagnosis: Likely abscess of skin or subcutaneous tissue, cellulitis and other (Osteomyelitis) Imaging Data Radiologist's impression: FINDINGS: 2.4 mm osseous density along the ulnar surface of the base of the distal phalanx of the first digit. This may represent an avulsion fracture. Joint spaces are preserved and alignment is maintained. Soft tissues are without radiopaque foreign body or significant calcification. Significant soft tissue swelling projecting over the thenar eminence. Age-appropriate mineralization. IMPRESSION: Possible avulsion fracture of the base of the distal phalanx of the first digit, as detailed above. Critical Care Time Critical Care Time Critical Care Time: No Discharge Plan Discharge Clinical Impression: Cellulitis and abscess of finger, unspecified Patient Disposition: Home Condition: Stable Instructions: Antibiotic Form, Cellulitis (ED) Additional Instructions: Your x-ray was negative for any signs of a bone infection. Clean with soap and water only; Avoid using alcohol and peroxide. May take Tylenol ibuprofen as needed for pain. Take antibiotic until it's gone. Please schedule a follow up visit with your personal physician for further evaluation and treatment within 3-5. Go to the ER if you develop worsening redness, swelling, red streaking, fevers, if the wound starts to turn black, or any other concerns Your blood pressure was elevated above 120/80 today at urgent care. This puts you above the threshold for follow-up. Please schedule a follow-up with your personal physician as soon as possible for further evaluation and treatment even blood pressures exceeding 120/80 may indicate pre-hypertension. Patient Language: Citizen [place] Prescriptions: New cephalexin 500 mg capsule 500 mg PO Q6H 10 Days Qty: 40 0RF No Action potassium chloride 10 mEq tablet extended release 10 meq PO BID omeprazole 20 mg capsule,delayed release(DR/EC) 20 mg PO DAILY losartan 100 mg tablet 100 mg PO DAILY amlodipine 5 mg tablet 5 mg PO DAILY meloxicam 7.5 mg tablet 7.5 mg PO DAILY cyclobenzaprine 10 mg tablet See Rx Instructions .ROUTE .COMPLEX Rx Instructions: as prescribed cyclobenzaprine 10 mg tablet 10 mg PO TID PRN (Reason: muscle spasm) Qty: 20 0RF prednisone 10 mg tablet 10 mg PO DAILY Qty: 42 0RF Rx Instructions: 6 tabs days 1-2, 5 tabs days 3-4, 4 tabs days 5-6, 3 tabs days 7-8, 2 tabs days 9-10, 1 tab days 11-12 furosemide 40 mg Tablet 40 mg PO DAILY Qty: 30 1RF carvedilol [Coreg] 12.5 mg Tablet 12.5 mg PO Q12HR 30 Days Qty: 60 0RF Follow-up/Referrals: Harms,Med Pappas M.D. [Primary Care Provider] - Time of Disposition: 19:18
[2024-05-25 19:27] VITALS: BP 174/109
== END 2024-05-25 19:27 | disposition home or self-care (01) ==
PROVIDERS: PCP Family Medicine
DX: L03.012 Cellulitis of left finger (principal); L02.512 Cutaneous abscess of left hand; Z87.891 Personal history of nicotine dependence; I11.0 Hypertensive heart disease with heart failure; I50.9 Heart failure, unspecified; I27.20 Pulmonary hypertension, unspecified; I25.2 Old myocardial infarction; K21.9 Gastro-esophageal reflux disease without esophagitis; K22.70 Barrett's esophagus without dysplasia
CPT/HCPCS: 73140; 99213; G0463